=== PATIENT | male | born 1960 | race Caucasian/White ===

== ENCOUNTER 2019-04-05 18:21 | Inpatient (IN) | payer BC ==
[2019-04-05] MEDS ORDERED: Ketamine 50 MG/ML (10ML VIAL) ONE (18:41)
[2019-04-05] MEDS ORDERED: Rocuronium Bromide 10 MG/ML (10ML VIAL) ONE (18:41)
[2019-04-05 19:01] LABS: #Lymphocytes 1.1 thou/uL (1.20-3.40); #Monocytes 1.3 thou/uL (0.11-0.59); #Neutrophils 12.3 thou/uL (1.40-6.50); %Basophils 0.1 % (0.0-1.0); %Eosinophils 0.2 % (0.0-10.0); %Lymphocytes 7.3 % (21.0-51.0); %Monocytes 8.5 % (0.0-10.0); Hemoglobin 18.3 g/dL (14.0-18.0); Mean Corpuscular HGB CONC 28.9 g/dL (32.0-36.0); Mean Corpuscular Hemoglobin 27.6 pg (27.0-31.0); Mean Corpuscular Volume 95.4 fL (78.0-98.0); Mean Platelet Volume 7.9 fL (7.4-10.4); Platelet Count 204 thou/uL (130-400); RBC Distribution Width 15.9 % (11.5-14.5); Red Blood Cell (RBC) Count 6.65 mill/uL (4.70-6.10); White Blood Cell (WBC) Count 14.7 thou/uL (4.8-10.8)
[2019-04-05] MEDS ORDERED: fentaNYL Citrate/PF 2,000 MCG in Sodium Chloride 0.9% 60 ML IV SCH ×2 (19:10→22:08)
[2019-04-05 19:19] LABS: ALT (SGPT) 93 U/L (8-55); AST (SGOT) 94 U/L (5-34); Albumin 3.7 g/dL (3.5-5.0); Alkaline Phosphatase 92 U/L (40-150); Anion Gap 16 mmol/L (10-20); BUN (Urea Nitrogen) 56 mg/dL (8.4-25.7); Bilirubin, Total 0.7 mg/dL (0.2-1.2); CK (CPK) 327 U/L (30-200); Calc. Creatinine Clearance 0 mL/min (70-130); Calcium 9.5 mg/dL (7.8-10.44); Carbon Dioxide 27 mmol/L (22-29); Chloride 104 mmol/L (98-107); Estimated GFR-MDRD 27; Globulin 3.7 g/dL (2.4-3.5); Glucose 90 mg/dL (70-105); Potassium 5.9 mmol/L (3.5-5.1); Protein, Total 7.4 g/dL (6.0-8.3); Sodium 141 mmol/L (136-145)
[2019-04-05 19:21] LABS: Actual Bicarbonate (HCO3a) 26.2 mEq/L (22-28); Base Excess (BEa) -3.2 mEq/L (-2.0 to +3.0); CO2 Tension 63.3 mmHg (35.0-45.0); O2 Tension (PaO2) 104.3 mmHg (80.0-100.0); pH, Arterial 7.23 (7.35-7.45)
[2019-04-05 19:22] LABS: Analyzer IN Cardio ER; Calcium, Ionized 1.19 mmol/L (1.12-1.30); Carboxyhemoglobin (COHb) 4.4 gm% (0.0-3.0); Hemoglobin (Hb) 18.2 g/dL (14.0-18.0); Potassium - ABG Lab 5.31 mmol/L (3.70-5.30)
[2019-04-05 19:23] LABS: ALV-art Gradient 244.375 (0-20); Puncture Site RBA
--- NOTE | 2019-04-05 19:24 | RAD ---
Exam: Chest one view HISTORY:Difficulty breathing. Low O2 saturation. Comparison: 11/23 FINDINGS: Limited evaluation due to poor penetration from portable technique. Endotracheal tube appears to be b eyond the level of the clavicles. Distal tip cannot be adequately assessed. There is cardiomegaly and pulmonary vascular prominence. There are bilateral pleural effusions with l remberto parenchymal opacification due to atelectasis, pneumonia or aspiration. No definite pneumothorax on this supine projection IMPRESSION: 1. Congestive heart failure. 2. Possibility of aspiration or pneumonia in the lung bases cannot be excluded. 3. Endotracheal tube, incompletely evaluated. Consider repeat radiograph.
[2019-04-05 19:28] LABS: Acetaminophen Less than 6.0 mcg/mL (10.0-30.0); Alcohol Less than 10 mg/dL (Less than 10); Lipase 80 U/L (8-78); Salicylate Less than 8.0 mg/dL (15.0-30.0)
[2019-04-05] MEDS ORDERED: Fentanyl 100 MCG/2 ML VIAL ONE (19:29)
[2019-04-05 19:41] LABS: CKMB 5.8 ng/mL (0-6.6)
[2019-04-05 19:54] LABS: Bilirubin Negative (Negative); Blood, Urine 2+ (Negative); Clarity Turbid (Clear); Glucose, Urine (Dipstick) Normal (Negative); Leukocyte Negative Leu/uL (Negative); Nitrite Negative (Negative); Protein, Urine (Dipstick) 200 mg/dL (Neg-Trace); RBC/HPF 21-50 HPF (0-3); Squamous Epithelial 0-3 HPF (0-3); Urobilinogen Normal mg/dL (Less than 2)
[2019-04-05 19:56] LABS: Amphetamine Not Detected (NotDetected); Barbiturates Screen Not Detected (NotDetected); Benzodiazepine Screen Not Detected (NotDetected); Cocaine Metabolite Screen Not Detected (NotDetected); Medtox Control Line Valid? VALID (VALID); Medtox Reader # READER 4; Methadone Not Detected (NotDetected); Methamphetamine Not Detected (NotDetected); Opiate Screen Not Detected (NotDetected); Oxycodone Screen Not Detected (NotDetected); Phencyclidine (PCP) Not Detected (NotDetected); THC/Cannabinoid Screen Not Detected (NotDetected); Tricyclic Screen Not Detected (NotDetected)
[2019-04-05 20:04] LABS: Bacteria/HPF 1+ HPF (None Seen); Sperm/HPF 3+ HPF (None Seen)
[2019-04-05] MEDS ORDERED: Cefepime 2 GM VIAL ONE (20:24)
[2019-04-05] MEDS ORDERED: Norepinephrine 4 MG/4 ML VIAL ONE ×2 (20:32→20:33)
[2019-04-05] MEDS ORDERED: Norepinephrine 8 MG in Dextrose 5% in Water 242 ML IVPB PRN ×2 (20:34→22:27)
[2019-04-05] MEDS ORDERED: Propofol 1,000 MG/100 ML VIAL IV ONE (20:40)
[2019-04-05 20:58] LABS: INR-International Normal Ratio 1.2; PTT 23.2 SEC (22.9-36.1)
--- NOTE | 2019-04-05 21:49 | CT ---
Exam: Head CT without contrast HISTORY: Altered mental status COMPARISON: none FINDINGS: Hemorrhage: No intraparenchymal hemorrhage or extra-axial hematoma. Brain parenchyma: Cortical grey-white matter differentiation is preserved. No mass effect or midline shift. Basilar cisterns are patent. Ventricular system: Ventricles and sulci are patent and symmetric. Calvarium: Intact. Sinuses and mastoid air cells: Minimal ethmoidal mucosal thickening. IMPRESSION: No acute intracranial process.
--- NOTE | 2019-04-05 21:56 | CT ---
Exam: Chest CT without contrast Abdomen CT without contrast Pelvic CT without contrast HISTORY: Altered mental status. Unresponsive patient. Abdominal bloating. FINDINGS: Chest CT: Limited evaluation of the mediastinum due to the lack of IV contrast. No mass, lymphadenopa thy or hematoma. Heart is enlarged. Trace amount of pericardial fluid. The thoracic aorta and abdominal aorta have a normal caliber. No periaortic fat stranding Trachea and central bronchi are patent. Small bilateral effusions with adjacent consolidation likely due to atelectasis, aspiration or pneumonia. Additional patchy groundglass and linear opacities may represent edema or infiltrate. No pneumothorax. Abdomen CT: Limited evaluation of the solid organs due to the lack of IV contrast. There is no solid organ abnormality. There is perihepatic and perisplenic fluid with attenuation coefficient of 22 and 44 Hounsfield units respectively. Complex fluid is favored. Gallbladder is unremarkable No gastrohepatic, retrocrural or periportal lymphadenopathy There is free fluid tracking along both paracolic gutters. No mass, lymphadenopathy or free air withi n the mesentery Symmetric attenuation of the kidneys. Bilaterally no obstructive uropathy There is extensive edema involving the anterior abdominal wall Limited evaluation element canal by the lack of oral contrast. Nasogastric tube is in stomach. Multip le normal caliber small bowel loops. Ileocecal junction is unremarkable. Appendix appears to be somewhat truncated but present. Stranding adjacent to the presumed appendix is nonspecific as the vis ualized appendix does not appear to be dilated. Scattered fecal material in nondistended, nondilated colon. Occasional diverticulum in the sigmoid colon. No diverticulitis CT PELVIS: Small amount of free fluid in the pelvis. No mass, nephropathy, or free air. Urinary bladd er is decompressed. No acute abnormality with regards to the osseous structures. IMPRESSION: 1. Bilateral pleural effusions with bibasilar consolidation due to atelectasis, pneumonia or aspirati on 2. Nonspecific complex perihepatic and perisplenic fluid. Fluid tracks along the paracolic gutters an d noted in the pelvis. Etiology is uncertain. No obvious solid organ injury on this noncontrast study 3. No evidence of bowel obstruction. Questionable appendix in the right lower quadrant with some stra nding of the adjacent mesentery. Visualized possible appendix does not appear to be dilated. 4. Nonspecific anterior abdominal wall edema.
[2019-04-05] MEDS ORDERED: Ventilator Sedation Protocol 1 EACH FS ONE (21:58)
[2019-04-05] MEDS ORDERED: Propofol BOLUS 1,000 MG/100 ML VIAL IV PRN (22:08)
[2019-04-05] MEDS ORDERED: DISCONTINUE PREVIOUS NARCOTIC PAIN MEDICATIONS AND BENZODIAZEPINES FS SCH (22:08)
[2019-04-05] MEDS ORDERED: Fentanyl BOLUS 250 ML IVPB PRN (22:08)
[2019-04-05] MEDS ORDERED: SYSTANE 3.5 GM TUBE EA EYE PRN (22:14)
[2019-04-05] MEDS ORDERED: Bisacodyl 10 MG SUPP PR PRN (22:14)
[2019-04-05] MEDS ORDERED: Norepinephrine 8 MG/0.9% NS 250 ML IVPB PRN (22:14)
[2019-04-05] MEDS ORDERED: Insulin Regular 300 UNITS/3 ML VIAL SC PRN (22:14)
[2019-04-05] MEDS ORDERED: Acetaminophen 325 MG Suppository PR PRN (22:14)
[2019-04-05] MEDS ORDERED: Sodium Chloride 0.9% 1,000 ML IV SCH (22:30)
[2019-04-05] MEDS ORDERED: Vancomycin HCl 1 GM in Premix Bag 1 BAG IVPB SCH (22:30)
[2019-04-05] MEDS ORDERED: Aspirin 325 MG TAB PO SCH (22:30)
[2019-04-05] MEDS ORDERED: Piperacillin/Tazobactam 3.375 GM in Sodium Chloride 0.9% 100 ML IVPB SCH (22:45)
[2019-04-05] MEDS ORDERED: DOBUTamine 500 mg/250 ml 500 MG in Premix Bag 1 BAG IVPB SCH (22:45)
[2019-04-05] MEDS ORDERED: Furosemide 40 MG/4 ML VIAL SLOW IVP SCH (22:45)
[2019-04-05 23:55] LABS: Lactic Acid 1.7 mmol/L (0.5-2.2)
[2019-04-05 23:58] LABS: Anion Gap 15 mmol/L (10-20); BUN (Urea Nitrogen) 55 mg/dL (8.4-25.7); Calc. Creatinine Clearance 63 mL/min (70-130); Calcium 8.6 mg/dL (7.8-10.44); Carbon Dioxide 24 mmol/L (22-29); Chloride 107 mmol/L (98-107); Estimated GFR-MDRD 26; Glucose 84 mg/dL (70-105); Potassium 5.9 mmol/L (3.5-5.1); Sodium 140 mmol/L (136-145)
[2019-04-06 00:22] LABS: CKMB 5.5 ng/mL (0-6.6)
--- NOTE | 2019-04-06 01:39 | CON ---
DATE OF CONSULTATION: CONSULTING PHYSICIAN: Jose Kwon MD CRITICAL CARE NOTE: Time 1 hour. HISTORY OF PRESENT ILLNESS: Patient is an unfortunate 59-year-old gentleman who presents with respiratory failure. The patient has no previous cardiac history. The patient states that for the past few days, he has developed progressive dyspnea. He presented to the emergency room with respiratory failure and was emergently intubated. According to the patient's family, he reports for the past several days having progressive dyspnea. He was not apparently febrile. PAST MEDICAL HISTORY: 1. Hypertension. 2. Sleep apnea. PAST SURGICAL HISTORY: SOCIAL HISTORY: Tobacco abuse. MEDICATIONS: See nursing list. PHYSICAL EXAMINATION: GENERAL: Morbidly obese gentleman, who was intubated. VITAL SIGNS: Blood pressure 103/70, on Levophed. NECK: Showed no jugular venous distention. LUNGS: Have crackles in both lung priest. HEART: Regular rate and rhythm. Normal S1, S2. ABDOMEN: Markedly distended. EXTREMITIES: Show severe bilateral edema. LABORATORY RESULTS: Sodium 141, potassium 5.9, chloride 104, bicarbonate 27, BUN 56, creatinine 2.5, and his glucose is 90. His AST is 94. Troponin 0.015. BNP is 2036. His white blood cell count is 14.7, and platelet counts were 204. IMAGING: Chest x-ray reveals cardiomegaly with bilateral effusions. His EKG revealed normal sinus rhythm, poor R-wave progression. IMPRESSION: 1. Respiratory failure. 2. Congestive heart failure. 3. Renal insufficiency. 4. Elevated LFTs. 5. Polycythemia. 6. History of hypertension. 7. History of sleep apnea. 8. Morbid obesity. This gentleman presents with congestive heart failure. He was emergently intubated. His blood pressure has been low on Levophed. We will add dobutamine to try to increase his cardiac output. We will diurese with IV Lasix. The patient 's prognosis is guarded. Job ID: [id number] [facility]
--- NOTE | 2019-04-06 02:13 | HP ---
PRIMARY CARE PHYSICIAN: Dr. Justin. CHIEF COMPLAINT: Shortness of breath. HISTORY OF PRESENT ILLNESS: The patient is a 59-year-old morbidly obese male with COPD, hypertension, hyperlipidemia, obstructive sleep apnea, on CPAP, was brought in by EMS with above complaints. The patient is intubated and sedated on mechanical ventilation. There is no family at the bedside. History obtained from the ER record as well as Dr. Justin's office records. The EMS was called for altered mentation along with shortness of breath by patient's spouse. Over the last 4 days, the patient has been generally weak and fatigued. He also had recent upper respiratory tract infection. Over the last several days, he also has productive cough. The patient's reported that she found him slumped over leaning on the bed, unresponsive. When EMS arrived, his O2 saturation was around 80% on room air. He was last seen normal 2 or 3 hours ago. There was no recent fever reported. He was started on noninvasive positive-pressure ventilation and was brought to the emergency room. Due to worsening shortness of breath, he was intubated in the emergency room. PAST MEDICAL HISTORY: From Dr. Justin's office record; 1. COPD. 2. Hypertension. 3. Morbid obesity with a BMI of 50.1. 4. Tobacco dependence. 5. Obstructive sleep apnea, on CPAP. 6. Hyperlipidemia. 7. Metabolic syndrome. 8. Anxiety. 9. Bilateral venous insufficiency. 10. GERD. PAST SURGICAL HISTORY: EGD and colonoscopy in 2012. ALLERGIES: NO KNOWN DRUG ALLERGIES. CURRENT HOME MEDICATION: 1. Aspirin 81 mg daily. 2. Bisoprolol/HCTZ 5/6.25 mg daily. 3. Zoloft 100 mg daily. SOCIAL HISTORY: The patient currently lives at home with his . He smokes up to 2 packs a day on a daily basis. He drinks alcohol socially. No drug use reported. FAMILY HISTORY: Father of stroke. Mother diagnosed with cancer. REVIEW OF SYSTEMS: Cannot be obtained from the patient due to current cognitive status. PHYSICAL EXAMINATION: VITAL SIGNS: On ER arrival, respirations of 32, pulse rate of 97, blood pressure 142/90, O2 saturation 96% on BiPAP, temperature was 99.1. GENERAL: A 59-year-old male, intubated and sedated on mechanical ventilation. HEENT: Head is atraumatic, normocephalic. Sclerae anicteric. No oral lesion. NECK: Supple. JVD cannot be appreciated due to body habitus. No carotid bruit. LUNGS: Showed bibasilar rales with scattered rhonchi. No significant wheezing. The patient is on mechanical ventilation. HEART: S1 and S2 present. Regular rate and rhythm. No rubs or gallops. ABDOMEN: Soft and obese. Bowel sounds present. No guarding or rigidity. EXTREMITIES: 2+ edema in bilateral lower extremities. SKIN: Warm and dry. NEUROLOGY AND PSYCHIATRY: Could not be reliably done due to current cognitive status. LYMPH NODES: No palpable lymph nodes in the neck. PERIPHERAL VASCULAR: Radial pulses are palpable bilaterally, low volume. LABORATORY FINDINGS: WBC 14.7 with hemoglobin 18.3, hematocrit 63.4, platelets 204. PT of 1.2, PTT 15. ABG showed pH 7.23, pCO2 of 63.3, pO2 of 104, bicarbonate 26.2. Chemistry showed sodium 141, potassium 5.9, chloride 104, bicarb 27, BUN 56, creatinine 2.5. Troponin 0.154. CK-MB 5.8. BNP 2036. Lipase of 80. Ammonia 84. TSH 5.7. AST 94, ALT 93. CK of 327. Urinalysis showed 1+ bacteria, leukocyte esterase negative, nitrite negative. Urine drug screen was negative. IMAGING STUDIES: Chest x-ray by my review showed findings consistent with congestive heart failure with possible aspiration at bases. CT scan of the brain by my review was negative for acute findings. CT scan of the chest, abdomen, and pelvis without contrast showed bilateral pleural effusion with bibasilar consolidation due to atelectasis, pneumonia, or aspiration. There was nonspecific complex perihepatic and perisplenic fluid with fluid tracking along the paracolic gutters of unclear etiology. EKG by my review showed sinus rhythm with nonspecific ST-T wave changes. Medications administered in the emergency room; vancomycin, cefepime, Levophed drip, fentanyl, propofol, ketamine, rocuronium, with IV fluid. IMPRESSION: 1. Acute hypoxic and hypercapnic respiratory failure. 2. Toxic metabolic encephalopathy, multifactorial. 3. Sepsis with acute organ dysfunction secondary to pneumonia, suspected aspiration. 4. New onset congestive heart failure. 5. Morbid obesity with a BMI of 50.1. 6. Type 2 myocardial infarction. 7. Abnormal LFTs probably secondary to congestive heart failure. 8. Acute kidney injury on chronic kidney disease stage 3 with hyperkalemia. 9. Elevated ammonia. 10. Gastroesophageal reflux disease. 11. Nonspecific complex perihepatic and perisplenic fluid of unclear etiology. 12. Hyperlipidemia. 13. Metabolic syndrome. 14. Anxiety. 15. Ongoing tobacco abuse. 16. Chronic venous insufficiency. PLAN: The patient will be monitored in the intensive care unit. We will continue mechanical ventilation, ventilation sedation protocol. Empiric antibiotics for pneumonia. Continue Levophed drip. We will start aspirin. Repeat chest x-ray and an ABG in a.m. Recheck ammonia in a.m. Echocardiogram. Consult Cardiology and Critical Care. Hold IV fluids for now. Gentle diuretics. Nebulizer treatment. DVT and GI prophylaxis. Please note that the patient was seen and examined on 05 April 2019. Plan of care was discussed. Job ID: [id number]
[2019-04-06 04:15] LABS: Phosphorus 4.1 mg/dL (2.3-4.7)
[2019-04-06 04:17] LABS: ALT (SGPT) 107 U/L (8-55); AST (SGOT) 105 U/L (5-34); Albumin 2.9 g/dL (3.5-5.0); Alkaline Phosphatase 70 U/L (40-150); Anion Gap 11 mmol/L (10-20); BUN (Urea Nitrogen) 58 mg/dL (8.4-25.7); Bilirubin, Total 0.5 mg/dL (0.2-1.2); Calc. Creatinine Clearance 64 mL/min (70-130); Calcium 8.8 mg/dL (7.8-10.44); Carbon Dioxide 30 mmol/L (22-29); Chloride 106 mmol/L (98-107); Estimated GFR-MDRD 26; Globulin 3.1 g/dL (2.4-3.5); Glucose 85 mg/dL (70-105); Magnesium 1.9 mg/dL (1.6-2.6); Potassium 5.3 mmol/L (3.5-5.1); Sodium 142 mmol/L (136-145)
[2019-04-06] MEDS: Propofol 1,000 MG/100 ML VIAL IV PRN ×4 (04:40→21:51)
[2019-04-06 05:02] LABS: Anisocytosis SLIGHT = 6-15 cells (100X) (0-5/hpf); Band 6 % (5-11); Hemoglobin 16.6 g/dL (14.0-18.0); Hypochromia SLIGHT = 6-15 cells (100X) (0-5/hpf); Lymphocytes 15 % (21-51); MDiff Complete? YES; Mean Corpuscular HGB CONC 30.3 g/dL (32.0-36.0); Mean Corpuscular Hemoglobin 28.5 pg (27.0-31.0); Mean Platelet Volume 8.3 fL (7.4-10.4); Monocytes 6 % (0-10); Neutrophil 72 % (42-75); Platelet Count 162 thou/uL (130-400); Platelet Morphology Comment Appears Adequate; Polychromasia SLIGHT = 2-3 cells (100X) (0-2/hpf); RBC Distribution Width 15.9 % (11.5-14.5); Reactive Lymphocytes 1 % (0-10); Red Blood Cell (RBC) Count 5.83 mill/uL (4.70-6.10); Stomatocytes SLIGHT = 2-5 cells (100X) (0-1/hpf); White Blood Cell (WBC) Count 12.4 thou/uL (4.8-10.8)
[2019-04-06] MEDS: Piperacillin/Tazobactam 2.25 GM in Sodium Chloride 0.9% 100 ML IVPB SCH ×4 (05:12→23:43)
[2019-04-06] MEDS ORDERED: Piperacillin/Tazobactam 3.375 GM in Sodium Chloride 0.9% 100 ML IVPB SCH (06:00)
[2019-04-06] MEDS: Furosemide 100 MG in Sodium Chloride 0.9% 100 ML IVPB SCH ×2 (06:17→06:22)
[2019-04-06] MEDS: Famotidine/PF 20 mg/2ml Vial SLOW IVP SCH (07:42)
[2019-04-06] MEDS: Aspirin 325 MG TAB PO SCH (07:42)
[2019-04-06] MEDS: Famotidine 40 MG/5 ML Oral Suspension PER TUBE SCH (07:43)
[2019-04-06] MEDS: Lorazepam 2 MG/ML VIAL SLOW IVP PRN ×3 (07:43→15:33)
[2019-04-06] MEDS: Enoxaparin Sodium 30 MG/0.3 ML SYRINGE SC SCH (07:45)
[2019-04-06 08:18] LABS: Actual Bicarbonate (HCO3a) 28.1 mEq/L (22-28); Base Excess (BEa) 1.9 mEq/L (-2.0 to +3.0); CO2 Tension 49.5 mmHg (35.0-45.0); Carboxyhemoglobin (COHb) 1.9 gm% (0.0-3.0); Hemoglobin (Hb) 16.7 g/dL (14.0-18.0); O2 Tension (PaO2) 78.8 mmHg (80.0-100.0); pH, Arterial 7.37 (7.35-7.45)
[2019-04-06 08:19] LABS: Potassium - ABG Lab 4.87 mmol/L (3.70-5.30)
[2019-04-06 08:20] LABS: Calcium, Ionized 1.18 mmol/L (1.12-1.30); Puncture Site RR
[2019-04-06 08:21] LABS: ALV-art Gradient 501.025 (0-20)
--- NOTE | 2019-04-06 09:04 | RAD ---
XR Chest 1 View Portable History: Ventilated patient Comparison: Radiograph prior day Findings: Patient is intubated with endotracheal tube tip at the level of the clavicles. Heart size i s enlarged. Large left effusion. Dense left basilar opacity. No pneumothorax. Anterior tube tip just above the level of the clavicles. Enteric tube tip not well s een. Impression: Within the limits of this exam, no significant change.
[2019-04-06] MEDS ORDERED: Vecuronium 10 MG VIAL ONE (10:01)
[2019-04-06] MEDS ORDERED: Sterile Water 10 ML ONE (10:02)
--- NOTE | 2019-04-06 19:30 | PDOC.PN ---
- Subjective Encounter Start Date: 04/06/19 Encounter Start Time: 09:40 Pt seen for followup re: acute hypoxic respiratory failure. Intubated, unable to complete ROS. - Objective MAR Reviewed: Yes Vital Signs & Weight: Vital Signs (12 hours) Pulse Resp BP Pulse Ox 04/06/19 18:13 82 18 92 L 04/06/19 15:58 78 04/06/19 12:33 73 110/61 04/06/19 11:09 75 107/64 04/06/19 07:59 72 108/66 04/06/19 07:51 18 96 Weight Weight 328 lb 4.293 oz Most Recent Monitor Data Heart Rate from ECG 85 NIBP 114/58 NIBP BP-Mean 76 Respiration from ECG 21 SpO2 91 I&O: 04/05/19 04/06/19 04/07/19 06:59 06:59 06:59 Intake Total 888 681 Output Total 1065 885 Balance -177 -204 Result Diagrams: 04/06/19 03:30 04/06/19 03:30 Additional Labs: Accuchecks 04/06/19 04/06/19 04/06/19 17:17 11:45 06:13 POC Glucose 78 75 98 EKG Reviewed by me: Yes (Tele: NSR) Phys Exam - Physical Examination Morbid obesity HEENT: moist MMs ETT+ Neck: no nodes Respiratory: clear to auscultation bilateral Cardiovascular: RRR Gastrointestinal: soft no spontaneous limb movements Deviation from normal: Unable to assess Dx/Plan (1) Acute respiratory failure with hypoxia Code(s): J96.01 - ACUTE RESPIRATORY FAILURE WITH HYPOXIA Status: Acute Comment: secondary to pneumonia +/- CHF exacerbation (2) Pneumonia Code(s): J18.9 - PNEUMONIA, UNSPECIFIED ORGANISM Status: Acute Comment: continue IV Zosyn (3) Acute diastolic heart failure, NYHA class 3 Code(s): I50.31 - ACUTE DIASTOLIC (CONGESTIVE) HEART FAILURE Status: Acute Comment: continue IV furosemide 20 mg BID (4) Hyperkalemia Code(s): E87.5 - HYPERKALEMIA Status: Acute Comment: administer kayexalate (5) Morbid obesity Code(s): E66.01 - MORBID (SEVERE) OBESITY DUE TO EXCESS CALORIES Status: Chronic - Plan continue antibiotics * . Review of Systems - Medications/Allergies Allergies/Adverse Reactions: Allergies Allergy/AdvReac Type Severity Reaction Status Date / Time No Known Drug Allergies Allergy Unverified 04/05/19 19:10 Medications: Current Medications Acetaminophen (Tylenol) 650 mg WA Q6H PRN PRN Reason: Fever > 101 or Mild Pain Acetaminophen (Tylenol Elixir) 650 mg PO Q6H PRN PRN Reason: Fever > 101 or Mild Pain Albuterol/Ipratropium (Duoneb) 3 ml NEB [id number] [facility] Last Admin: 04/06/19 18:13 Dose: 3 ml Albuterol/Ipratropium (Duoneb) 3 ml NEB Q6H PRN PRN Reason: SOB &/or Wheezing Aspirin (Aspirin) 325 mg PO QAM-WM [facility] Last Admin: 04/06/19 07:42 Dose: 325 mg Bisacodyl (Dulcolax) 10 mg WA DAILYPRN PRN PRN Reason: Constipation Enoxaparin Sodium (Lovenox) 30 mg SC 0900 [facility] Last Admin: 04/06/19 07:45 Dose: 30 mg Famotidine (Pepcid) 20 mg SLOW IVP DAILY [facility] Last Admin: 04/06/19 07:42 Dose: 20 mg Famotidine (Pepcid) 20 mg PER TUBE DAILY [facility] Last Admin: 04/06/19 07:43 Dose: Not Given Furosemide (Lasix) 20 mg SLOW IVP 0600,1400 [facility] Fentanyl Citrate 2,000 mcg/ (Sodium Chloride) 100 mls @ 0 mls/hr IV INF [facility]; Protocol Stop: 05/05/19 22:08 Fentanyl Citrate (Fentanyl Bolus) 250 mls @ 0 mls/hr IVPB PRN PRN PRN Reason: Breakthrough pain/agitation Stop: 05/05/19 22:08 Norepinephrine Bitartrate 8 mg (/ Dextrose/Water) 250 mls @ 0 mls/hr IVPB INF PRN; Protocol PRN Reason: TO MAINTAIN MAP > 65 Piperacillin Sod/Tazobactam (Sod 2.25 gm/ Sodium Chloride) 100 mls @ 200 mls/ hr IVPB Q6HR [facility] Last Admin: 04/06/19 17:05 Dose: 100 mls Vancomycin HCl 1.5 gm/ Sodium (Chloride) 300 mls @ 200 mls/hr IVPB 2200 [facility]ISAL Insulin Human Regular (Humulin R) 0 units SC .MILD SLIDING SCALE PRN PRN Reason: Mild Correctional Scale Lorazepam (Ativan) 2 mg SLOW IVP Q1H PRN PRN Reason: Breakthrough agitation Stop: 05/05/19 22:08 Last Admin: 04/06/19 15:33 Dose: 2 mg Mineral Oil/White Petrolatum (Systane Nighttime Eye Ointment) 0 gm EA EYE PRN PRN PRN Reason: Dry Eyes Miscellaneous Medication (Pharmacy To Dose) 1 each IVPB ONE PRN PRN Reason: Pharmacy to dose Stop: 05/05/19 22:21 Morphine Sulfate (Morphine) 2 mg SLOW IVP Q1H PRN PRN Reason: BREAKTHROUGH PAIN/Agitation Stop: 05/05/19 22:08 Discontinue Previous Narcotic Pain Medications And Benzodiazepines 1 each FS .ONE FAISAL Stop: 05/05/19 22:08 Propofol (Diprivan) 1,000 mg IV INF PRN; Protocol PRN Reason: TO ACHIEVE GOAL RASS Stop: 05/05/19 22:08 Last Admin: 04/06/19 14:49 Dose: 1,000 mg Propofol (Diprivan Bolus) 20 mg IV Q5MIN PRN PRN Reason: BREAKTHROUGH AGITATION Stop: 05/05/19 22:08
[2019-04-06] MEDS: Vancomycin HCl 1.5 GM in Sodium Chloride 0.9% 250 ML 300 ML IVPB SCH (21:51)
[2019-04-07] MEDS: Propofol 1,000 MG/100 ML VIAL IV PRN ×5 (00:25→22:41)
[2019-04-07] MEDS: Lorazepam 2 MG/ML VIAL SLOW IVP PRN ×5 (01:55→17:30)
[2019-04-07 04:06] LABS: ALT (SGPT) 118 U/L (8-55); AST (SGOT) 82 U/L (5-34); Albumin 2.8 g/dL (3.5-5.0); Alkaline Phosphatase 67 U/L (40-150); Anion Gap 14 mmol/L (10-20); BUN (Urea Nitrogen) 56 mg/dL (8.4-25.7); Bilirubin, Total 0.6 mg/dL (0.2-1.2); Calc. Creatinine Clearance 70 mL/min (70-130); Calcium 8.9 mg/dL (7.8-10.44); Carbon Dioxide 29 mmol/L (22-29); Chloride 107 mmol/L (98-107); Estimated GFR-MDRD 28; Globulin 3.1 g/dL (2.4-3.5); Glucose 94 mg/dL (70-105); Potassium 4.7 mmol/L (3.5-5.1); Protein, Total 5.9 g/dL (6.0-8.3); Sodium 145 mmol/L (136-145)
[2019-04-07 04:33] LABS: Band 4 % (5-11); Eosinophils 2 % (0-10); Lymphocytes 13 % (21-51); MDiff Complete? YES; Mean Corpuscular HGB CONC 30.7 g/dL (32.0-36.0); Mean Corpuscular Hemoglobin 28.3 pg (27.0-31.0); Mean Corpuscular Volume 92.3 fL (78.0-98.0); Mean Platelet Volume 8.4 fL (7.4-10.4); Monocytes 8 % (0-10); Neutrophil 73 % (42-75); Platelet Count 160 thou/uL (130-400); RBC Distribution Width 15.9 % (11.5-14.5); Red Blood Cell (RBC) Count 5.67 mill/uL (4.70-6.10); White Blood Cell (WBC) Count 8.7 thou/uL (4.8-10.8)
[2019-04-07] MEDS: Piperacillin/Tazobactam 2.25 GM in Sodium Chloride 0.9% 100 ML IVPB SCH ×3 (05:39→16:57)
[2019-04-07] MEDS: Furosemide 20 MG/2 ML VIAL SLOW IVP SCH ×2 (05:39→14:28)
[2019-04-07] MEDS: Aspirin 325 MG TAB PO SCH (08:13)
[2019-04-07 08:14] LABS: Actual Bicarbonate (HCO3a) 27.2 mEq/L (22-28); Base Excess (BEa) 0.3 mEq/L (-2.0 to +3.0); CO2 Tension 51.6 mmHg (35.0-45.0); Calcium, Ionized 1.15 mmol/L (1.12-1.30); Carboxyhemoglobin (COHb) 1.6 gm% (0.0-3.0); Hemoglobin (Hb) 16.5 g/dL (14.0-18.0); O2 Tension (PaO2) 65.9 mmHg (80.0-100.0); Potassium - ABG Lab 4.57 mmol/L (3.70-5.30); pH, Arterial 7.34 (7.35-7.45)
[2019-04-07] MEDS: Famotidine 40 MG/5 ML Oral Suspension PER TUBE SCH (08:14)
[2019-04-07] MEDS: Enoxaparin Sodium 30 MG/0.3 ML SYRINGE SC SCH (08:14)
[2019-04-07] MEDS: Famotidine/PF 20 mg/2ml Vial SLOW IVP SCH (08:14)
[2019-04-07 08:17] LABS: Puncture Site LRA
--- NOTE | 2019-04-07 08:20 | RAD ---
Exam: Chest one view: HISTORY: Respiratory insufficiency FINDINGS: Monitor leads overlie the chest. There is now complete abnormal opacification of the left hemithorax when compared to yesterday's study. Endotracheal tube and NG tube are in place. This finding suggests rapidly developing left pleural fluid and/or total left lung atelectasis. No significant acu te process in the right chest although there is some stable vascular congestion and minimal pleural changes. Heart size is very difficult to assess but appears enlarged. IMPRESSION: Developing abnormal complete opacification of the left hemithorax evidence for rapidly enlarging left pleural effusion/pleural fluid and/or complete left lung atelectasis. Consider bronchoscopy for further assessment in this regard. Stable right chest.
--- NOTE | 2019-04-07 10:07 | PRG ---
DATE OF SERVICE: 04/07/2019 SUBJECTIVE: Obdulio remains mechanically ventilated. He had left lung atelectasis on today's chest x-ray. Recommended bronchoscopy. OBJECTIVE: VITAL SIGNS: His blood pressure is 106/62, heart rate 78, respiratory rate 17, and oximetry is 90. HEAD AND NECK: Unchanged. LUNGS: Remarkable for distant breath sounds on the left. HEART: Regular rhythm. ABDOMEN: Soft. EXTREMITIES: Without clubbing, cyanosis, or edema. LABORATORY DATA: White count 8.7, hemoglobin 16.0, and platelets 160. Sodium 145, potassium 4.7, chloride 107, bicarb 29, BUN 56, and creatinine 2.38 down from 2.53. IMPRESSION: 1. Chronic obstructive pulmonary disease exacerbation with bronchitis, perhaps early pneumonia. 2. Left lung atelectasis secondary to mucus plug. I doubt he has an endobronchial lesion, but I have recommended bronchoscopy. 3. Acute on chronic kidney disease. 4. Elevated liver enzymes. 5. Hypoalbuminemia with moderate proteinuria (200 mg/dL). 6. Microhematuria on urinalysis. It is unclear whether not this was drawn after a [place] was placed. 7. Hyperdynamic ventricle, but echo was of poor quality. There is tricuspid regurgitation seen. PLAN: We will continue with antimicrobial therapy, ventilation, steroids, and nebulizer treatments. Serial x-rays. Bronchoscopy will be performed. Critical care time is 35 minutes, independent of procedures performed. Job ID: [id number] [facility]
--- NOTE | 2019-04-07 13:51 | CON ---
DATE OF CONSULTATION: HISTORY OF PRESENT ILLNESS: Mr. Mak is a 59-year-old male. His tells me he has been short of breath for several days and then just prior to admission was mumbling and on his knees leaning over something and barely able to breathe. EMS was subsequently called. At some point along the way, he was intubated. He is now in the critical care unit. I was consulted to assist in his management. He has no past history of heart or lung disease according to her, but I did find pulmonary function test done in December of 2012 that showed a moderate obstructive defect with an FEV1 of 1.70 L. Surprisingly, he had 250 mL bronchodilator suggesting as a mixture of COPD and asthma. His lung volumes are normal. He did have air trapping. Diffusion was not done. His says she has been buying Primatene Mist inhaler since they came back on the market and he is using those several times a day with improvement of his pulmonary function in a sense of well being. Reviewed his chest x-ray on admission, is suggestive of an increase in interstitial markings. Chest CT as well as an abdomen and pelvis CT was done in the emergency department. He had small bilateral effusions. He really did not have any increased interstitial markings on his chest CT. His abdomen views were remarkable only for perihepatic and perisplenic fluid. His says that he has been retaining fluid. His abdomen has been swelling and his legs have been swelling and this has been going on for at least a week or longer. PAST MEDICAL HISTORY: 1. Remarkable for hypertension. His says his blood pressure has been running on the low side lightly, but he does take his medications. 2. History of sleep apnea, compliant with CPAP. She says he will not go to sleep without it. 3. History of ongoing tobacco use. 4. History of obesity. 5. History of lipid disorder. 6. History of reflux disease. 7. History of EGD and colonoscopy in 2013. ALLERGIES: HE HAS NO DRUG ALLERGIES. FAMILY HISTORY: Negative for lung disease in early age. REVIEW OF SYSTEMS: Not obtainable. PHYSICAL EXAMINATION: VITAL SIGNS: Blood pressure 109/58, heart rate 75, respiratory rate is 20. GENERAL: Sedated and paralyzed for ventilation. HEENT: Pupils are equal. Sclerae are anicteric. Extraocular movements are intact. NECK: Supple. No lymphadenopathy. LUNGS: Distant clear. HEART: Regular rhythm. S1 and S2 are normal. ABDOMEN: Soft and nontender. He has 1+ to 2+ lower extremity edema. He moves all extremities when he is not sedated I am told. He has gag reflex and coughs if stimulated. LABORATORY DATA: White count is 12.4, hemoglobin 16.6, platelets 162,000. Hemoglobin was 18.3 yesterday, suggesting that he has significant intravascular volume depletion. In 2014, he had a hemoglobin of 17.1. It is unclear when his treatment for sleep apnea started. Sodium 142, potassium 5.3, chloride 106, bicarb 30, BUN 58, and creatinine 2.53 to 2.57 last night and 3.50 early in emergency room, in November of 2017, it was 1.43. IMPRESSION: 1. Chronic obstructive pulmonary disease exacerbation. 2. ? Component of diastolic heart failure. 3. Anasarca secondary likely to combination of sleep apnea, diastolic heart failure, and chronic obstructive pulmonary disease with cor pulmonale. 4. Acute on chronic kidney disease. 5. Probable intravascular volume depletion that is significant, I suspect this will improve. 6. Mild elevation of liver enzymes and normal bilirubin and normal alkaline phosphatase, likely secondary to either fatty infiltration of his liver with hepatic congestion with latter being more likely. 7. Hypoalbuminemia. 8. Obesity. 9. History of hypertension. 10. Lipid disorder. I was met with family and answered all their questions. I suspect he will be mechanically ventilated for several days. I do believe he will survive this, but steroids, nebulizer treatments, gentle diuresis once his renal function is documented to be stable will be the order of the day. At this point in time, I would not aggressively try diuresing him because of his elevated creatinine. CRITICAL CARE TIME: 30 minutes. Job ID: [id number]
--- NOTE | 2019-04-07 14:41 | OP ---
DATE OF PROCEDURE: 04/07/2019 PROCEDURE PERFORMED: Fiberoptic bronchoscopy. DESCRIPTION OF PROCEDURE: Bronchoscope was introduced via the endotracheal tube without difficulty. The left mainstem bronchus was completely occluded with a very thick rubbery mucus plug. This was lavaged with approximately 40 mL of saline until it was clear. No endobronchial lesions were seen behind it. The left upper lobe, left lower lobe, right upper lobe, right middle lobe, right lower lobe were inspected. Diffuse bronchial edema was noted, but no lesions suggestive of malignancy or aspirated material. He tolerated the procedure well. He is not hypoxemic during the procedure. He was already sedated for mechanical ventilation. Job ID: [id number]
[2019-04-07] MEDS: guaiFENesin ER 600 MG TAB PO SCH (19:51)
[2019-04-07 21:26] LABS: Vancomycin, Trough 13.9 ug/mL
[2019-04-07] MEDS: Vancomycin HCl 1.5 GM in Sodium Chloride 0.9% 250 ML 300 ML IVPB SCH (21:42)
--- NOTE | 2019-04-07 21:44 | PDOC.PN ---
- Subjective Encounter Start Date: 04/07/19 Encounter Start Time: 17:25 Subjective: f/u for resp failure likely due to COPD, L-sided PNA/atelectasis s/p -: bronchoscopy with removal of L main bronchus mucus plug. Remains -: mech ventilated on Zosyn/Vanc. - Objective MAR Reviewed: Yes Vital Signs & Weight: Vital Signs (12 hours) Temp Pulse Resp BP Pulse Ox 04/07/19 20:00 18 04/07/19 19:00 98.3 F 04/07/19 18:22 81 108/64 04/07/19 14:58 82 103/58 L 04/07/19 13:32 15 04/07/19 13:25 76 118/67 04/07/19 13:22 77 14 91 L 04/07/19 10:49 85 126/60 04/07/19 10:00 98.4 F Weight Admit Weight 319 lb 10.7 oz Weight 330 lb 11.04 oz Most Recent Monitor Data Heart Rate from ECG 84 NIBP 113/60 NIBP BP-Mean 77 Respiration from ECG 16 SpO2 89 I&O: 04/06/19 04/07/19 04/08/19 06:59 06:59 06:59 Intake Total 888 1500 710 Output Total 1069 1700 3240 Balance -960 -222 -0069 Result Diagrams: 04/07/19 03:30 04/07/19 03:30 Additional Labs: Accuchecks 04/07/19 04/07/19 06:11 00:09 POC Glucose 93 99 Laboratory Tests 04/05/19 04/05/19 04/05/19 18:40 18:40 18:40 WBC 14.7 H Hgb 18.3 H Creatinine 2.50 H AST 94 H Ammonia B-Natriuretic Peptide 2036.6 H TSH 3rd Generation Cortisol Vancomycin Trough Plasma Alcohol 04/05/19 04/05/19 04/05/19 18:40 18:40 19:15 WBC Hgb Creatinine AST Ammonia 84 H B-Natriuretic Peptide TSH 3rd Generation 5.7125 H Cortisol Vancomycin Trough Plasma Alcohol Less than 10 04/05/19 04/06/19 04/06/19 23:23 03:30 03:30 WBC 12.4 H Hgb 16.6 Creatinine 2.57 H 2.53 H AST 105 H Ammonia B-Natriuretic Peptide TSH 3rd Generation Cortisol Vancomycin Trough Plasma Alcohol 07/07/19 07/07/19 07/08/19 03:30 03:30 03:30 WBC Hgb Creatinine AST 82 H Ammonia 34 B-Natriuretic Peptide TSH 3rd Generation Cortisol 16.70 Vancomycin Trough Plasma Alcohol 04/07/19 21:02 WBC Hgb Creatinine AST Ammonia B-Natriuretic Peptide TSH 3rd Generation Cortisol Vancomycin Trough 13.9 Plasma Alcohol Radiology Reviewed by me: Yes (PCXR - L hemithorax opacification) EKG Reviewed by me: Yes (Tele - SR) Phys Exam - Physical Examination sedate on mech ventilation ETT in place HEENT: sclera anicteric, oral pharynx no lesions Neck: no nodes, no JVD, supple, full ROM diminished in bases L> R Respiratory: no wheezing S1, S2 Cardiovascular: RRR, no significant murmur, no rub, gallop obese Gastrointestinal: no distention, positive bowel sounds Musculoskeletal: pulses present, edema present sedate on mech vent Skin: normal turgor, cap refill <2 seconds Dx/Plan (1) Acute respiratory failure with hypoxia and hypercapnia Code(s): J96.01 - ACUTE RESPIRATORY FAILURE WITH HYPOXIA; J96.02 - ACUTE RESPIRATORY FAILURE WITH HYPERCAPNIA Status: Acute Comment: Likely due to #2 , continue mech vent with SIMV, serial PCXR, ABG's, s/p L main bronchus evacuation of mucus plug (2) Atelectasis of left lung Code(s): J98.11 - ATELECTASIS Status: Acute Comment: See above, improving aeration (3) Acute diastolic heart failure, NYHA class 3 Code(s): I50.31 - ACUTE DIASTOLIC (CONGESTIVE) HEART FAILURE Status: Acute Comment: continue IV furosemide 20 mg BID, serial weights and I/O's (4) Pneumonia Code(s): J18.9 - PNEUMONIA, UNSPECIFIED ORGANISM Status: Acute Qualifiers: Laterality: left Comment: continue IV Zosyn, Vancomycin, Duonebs (5) Morbid obesity Code(s): E66.01 - MORBID (SEVERE) OBESITY DUE TO EXCESS CALORIES Status: Chronic Comment: Weight loss resources (6) TASHIA (acute kidney injury) Code(s): N17.9 - ACUTE KIDNEY FAILURE, UNSPECIFIED Status: Acute Comment: Appears to be worsening, monitor closely given need for Lasix, avoid nephrotoxic meds and limit contrast exposure - Plan continue antibiotics, secondary social studies teacher, respiratory therapy, DVT proph w/SCDs Continue critical support and mech ventilation -: Continue Vanc/Zosyn -: PCXR in am -: Continue Lasix IV -: AM lab: CMP, CBC, ABG * .
[2019-04-08] MEDS: Piperacillin/Tazobactam 2.25 GM in Sodium Chloride 0.9% 100 ML IVPB SCH ×2 (00:44→05:41)
[2019-04-08] MEDS: Propofol 1,000 MG/100 ML VIAL IV PRN ×4 (03:16→15:36)
[2019-04-08 04:55] LABS: ALT (SGPT) 129 U/L (8-55); AST (SGOT) 101 U/L (5-34); Albumin 2.8 g/dL (3.5-5.0); Alkaline Phosphatase 66 U/L (40-150); Anion Gap 13 mmol/L (10-20); BUN (Urea Nitrogen) 43 mg/dL (8.4-25.7); Bilirubin, Total 0.7 mg/dL (0.2-1.2); Calc. Creatinine Clearance 93 mL/min (70-130); Calcium 8.4 mg/dL (7.8-10.44); Carbon Dioxide 32 mmol/L (22-29); Cardiac Risk 6.4 (Less than 4.5); Chloride 104 mmol/L (98-107); Cholesterol 109 mg/dl (< 200 Desired); Estimated GFR-MDRD 39; Globulin 3.2 g/dL (2.4-3.5); Glucose 99 mg/dL (70-105); HDL Cholesterol 17 mg/dL (>60 Neg Risk); LDL Cholesterol, Calculated 50 mg/dL; Potassium 4.2 mmol/L (3.5-5.1); Sodium 145 mmol/L (136-145); Triglycerides 212 mg/dL (Less than 150)
[2019-04-08 05:22] LABS: Band 12 % (5-11); Hemoglobin 16.1 g/dL (14.0-18.0); Lymphocytes 10 % (21-51); MDiff Complete? YES; Mean Corpuscular HGB CONC 29.6 g/dL (32.0-36.0); Mean Corpuscular Hemoglobin 27.2 pg (27.0-31.0); Mean Platelet Volume 8.4 fL (7.4-10.4); Monocytes 7 % (0-10); Neutrophil 71 % (42-75); Platelet Count 142 thou/uL (130-400); RBC Distribution Width 15.8 % (11.5-14.5); RBC Morphology Normal; White Blood Cell (WBC) Count 7.3 thou/uL (4.8-10.8)
[2019-04-08] MEDS: Furosemide 20 MG/2 ML VIAL SLOW IVP SCH (05:41)
[2019-04-08 07:23] LABS: Actual Bicarbonate (HCO3a) 32.7 mEq/L (22-28); Base Excess (BEa) 5.7 mEq/L (-2.0 to +3.0); CO2 Tension 56.1 mmHg (35.0-45.0); Hemoglobin (Hb) 16.7 g/dL (14.0-18.0); O2 Tension (PaO2) 51.8 mmHg (80.0-100.0); pH, Arterial 7.38 (7.35-7.45)
[2019-04-08 07:24] LABS: ALV-art Gradient 505.515 (0-20); Calcium, Ionized 1.16 mmol/L (1.12-1.30); Carboxyhemoglobin (COHb) 1.8 gm% (0.0-3.0); Puncture Site LRA
[2019-04-08] MEDS: Lorazepam 2 MG/ML VIAL SLOW IVP PRN ×4 (07:27→15:36)
[2019-04-08] MEDS: Aspirin 325 MG TAB PO SCH (07:30)
[2019-04-08] MEDS: guaiFENesin ER 600 MG TAB PO SCH ×2 (07:30→20:32)
[2019-04-08] MEDS: Famotidine/PF 20 mg/2ml Vial SLOW IVP SCH (07:31)
[2019-04-08] MEDS: Enoxaparin Sodium 30 MG/0.3 ML SYRINGE SC SCH (07:31)
[2019-04-08] MEDS: Famotidine 40 MG/5 ML Oral Suspension PER TUBE SCH (07:32)
--- NOTE | 2019-04-08 08:13 | RAD ---
Chest AP view INDICATION: Daily CT examination while on ventilator COMPARISON: April 07, 2019 FINDINGS: Tubes and Lines: ET tube and gastric catheter are unchanged. Lungs:There is improved aeration of the left along. Cardiac silhouette pulmonary vasculature:Cardiomegaly and mild pulmonary vascular congestion persists . Pleural spaces: 6 opacification of left hemithorax has improved. Small bilateral pleural effusions pe rsist. No pneumothorax is demonstrated. Upper abdomen:No abnormality seen. Osseous structures: No acute abnormality. IMPRESSION: Improved aeration of the left lung with small residual bilateral pleural effusions. Cardi omegaly and mild pulmonary vascular congestion persists. No pneumothorax is identified. Tubes and lines are stable.
[2019-04-08] MEDS ORDERED: Furosemide 20 MG/2 ML VIAL SLOW IVP SCH (08:47)
[2019-04-08] MEDS ORDERED: Furosemide 40 MG/4 ML VIAL ONE ×2 (08:48→09:58)
[2019-04-08] MEDS ORDERED: Furosemide 40 MG/4 ML VIAL SLOW IVP SCH (09:15)
[2019-04-08] MEDS ORDERED: Furosemide 100 MG/10 ML VIAL SLOW IVP SCH (10:00)
[2019-04-08] MEDS: Piperacillin/Tazobactam 3.375 GM in Sodium Chloride 0.9% 100 ML IVPB SCH ×3 (10:51→23:36)
--- NOTE | 2019-04-08 11:52 | PRG ---
DATE OF SERVICE: 04/08/2019 SUBJECTIVE: Ramin Mak still requires sedation for mechanical ventilation. OBJECTIVE: VITAL SIGNS: Heart rate is 87, blood pressure 122/71, respiratory rates in the teens. His FiO2 requirements went up yesterday. His intake and outputs, -2319. LUNGS: Distant, clear. Mild rhonchi and wheezes. HEART: Regular rhythm. S1, S2 normal. ABDOMEN: Soft and nontender. EXTREMITIES: Without edema. NEURO: He moves all 4 extremities. LABORATORY DATA: White count 7.3, hemoglobin 16.1, platelets 142. Electrolytes are normal. BUN is 43, creatinine is 1.81. PH 7.38, CO2 56, PO2 51. We will try diuresing him more and try minimizing his FiO2. I would like to get a CT angiogram just to make sure we are not missing thromboembolic disease, but he is too unstable at this time to move down for CT pulmonary angiogram. With fiberoptic bronchoscopy yesterday, specimens have not grown anything positive. IMPRESSION: 1. Acute on chronic respiratory failure. 2. Severe chronic obstructive pulmonary disease. 3. Diastolic heart failure. 4. Ongoing hypoxemia, most likely secondary to peripheral mucus plugging, bronchitis and perhaps early pneumonia. I will Doppler his legs today. We will add Precedex for sedation to see, if we can find a combination of drugs, it makes him more cooperative when sedation is decreased. We will more aggressively diurese him today and hopefully this will help with gas exchange and try to get him down to a FiO2 of less than 60%. Critical care time is 35 minutes. Job ID: [id number] MTDD
--- NOTE | 2019-04-08 13:10 | PQF ---
TORREY MELTON RICHA MD [id number] CLINICAL DOCUMENTATION IMPROVEMENT CLARIFICATION FORM: ICD-10 Updated PLEASE DO AN ADDENDUM TO THE PROGRESS NOTE WITH ANY DOCUMENTATION UPDATES OR ADDITIONS AND CARRY THROUGH TO DC SUMMARY. THANK YOU. DATE: 04/08 ATTN : DR. PETE HARDING Please exercise your independent, professional judgment in responding to the clarification form. Clinical indicators are provided on the bottom of this form for your review. Please check appropriate box(s) to clarify if the following diagnosis has been ruled in or ruled out: SEPSIS W/ACUTE ORGAN DYSFUNCTION [ ] Ruled in diagnosis [ ] Continue to treat [ ] Resolved [ ] Ruled out diagnosis [ ] Other diagnosis [ X ] Unable to determine In addition, please specify: Present on Admission (POA): [ ] Yes [ ] No [ X ] Unable to determine For continuity of documentation, please document condition throughout progress notes and discharge summary. Thank You. CLINICAL INDICATORS - SIGNS / SYMPTOMS / LABS WBC: 14.7 (04/05) BP (IN ED 04/05): 81/62-143/87 H&P 04/05 (LADHA): IMPRESSION: 1) ACUTE HYPOXIC/HYPERCAPNIC RESPIRATORY FAILURE ; 2) TOXIC METABOLIC ENCEPHALOPATHY, MULTIFACTORIAL; 3) SEPSIS, W/ACUTE ORGAN DYSFUNCTION 2/2 PNEUMONIA, SUSPECTED ASPIRATION; 8) TASHIA ON CKD 3 PULMONOLOGY CONSULT 04/05: IMPRESSION: 1) COPD EXACERBATION; 5) PROBABLE INTRAVASCULAR VOLUME DEPLETION THAT IS SIGNIFICANT PN 04/06 (RENETTA) & 04/07 (JOSÉ MIGUEL): ACUTE PNEUMONIA, LEFT NO FURTHER MENTION OF SEPSIS TO DATE RISKS: L SIDED PNEUMONIA TOXIC METABOLIC ENCEPHALOPATHY TASHIA TREATMENT: IVF (2L NS IN ED) IV ANTIBIOTICS (VANCOMYCIN 04/05 - 7; ZOSYN 04/05 - PRESENT) LEVOPHED (04/05-) THANK YOU! Beulah (This form is maintained as a part of the permanent medical record) 2014 [employer]. All Rights Reserved Beulah Ramirez RN, BSN [email or web address] Office: [phone] [facility]OSPITAL[facility]
[2019-04-08] MEDS: Furosemide 40 MG/4 ML VIAL SLOW IVP SCH (14:37)
--- NOTE | 2019-04-08 15:42 | ULT ---
BILATERAL LOWER EXTREMITY VENOUS ULTRASOUND: 04/08/19 COMPARISON: None. HISTORY: Bilateral lower extremity edema and swelling. TECHNIQUE: Multiplanar grey scale and color Doppler images were obtained in a bilateral lower extremity venous u ltrasound. Spectral analysis of the Doppler waveforms were performed. FINDINGS: A central line is seen in the right common femoral vein. There is a small amount of nonocclusive thr ombus in the common femoral vein around the central line. The right superficial femoral vein, profund a femoral vein, and popliteal vein are normal in appearance without visible thrombus. These vessels d emonstrate normal compression, flow and augmentation. The posterior tibial vein and greater saphenous vein are also patent on the right. The left lower extremity shows no evidence of DVT in the common femoral vein, profunda femoral vein, superficial femoral vein, or popliteal vein. The posterior tibial vein and greater saphenous vein are also patent on the left. IMPRESSION: Small amount of nonocclusive thrombus surrounding the central line in the right common femoral vein. POS: C
--- NOTE | 2019-04-08 16:15 | PDOC.PN ---
- Subjective Encounter Start Date: 04/08/19 Encounter Start Time: 16:12 Subjective: remains intubated.no new changes -: s/p bronch yesterday - Objective MAR Reviewed: Yes Vital Signs & Weight: Vital Signs (12 hours) Temp Pulse Resp BP Pulse Ox 04/08/19 13:48 77 103/67 04/08/19 13:47 78 17 96 04/08/19 10:40 87 122/71 04/08/19 07:08 16 90 L 04/08/19 07:00 99.0 F 04/08/19 06:49 84 119/75 04/08/19 06:48 83 17 92 L 04/08/19 06:00 18 Weight Admit Weight 319 lb 10.7 oz Weight 315 lb 0.649 oz Most Recent Monitor Data Heart Rate from ECG 78 NIBP 93/63 NIBP BP-Mean 73 Respiration from ECG 11 SpO2 94 I&O: 04/07/19 04/08/19 04/09/19 06:59 06:59 06:59 Intake Total 1500 2141 0 Output Total 1700 9148 4766 Balance -200 -3234 -7135 Result Diagrams: 04/08/19 04:20 04/08/19 04:20 Additional Labs: Microbiology 04/05/19 19:29 Urine andrew catheter Urine Culture - Final NO GROWTH AT 36 HOURS 04/07/19 07:50 Bronchial Washing Respiratory Culture - Preliminary 04/05/19 19:22 Venous blood - Left Hand Blood Culture - Preliminary NO GROWTH AT 48 HOURS 04/05/19 19:15 Venous blood - Right Hand Blood Culture - Preliminary NO GROWTH AT 48 HOURS Laboratory Tests 04/05/19 04/05/19 04/06/19 18:40 23:23 03:30 Creatinine 2.50 H 2.57 H 2.53 H 04/07/19 04/08/19 03:30 04:20 Creatinine 2.38 H 1.81 H Phys Exam - Physical Examination intubated HEENT: moist MMs ETT Neck: no JVD Respiratory: no wheezing, no rales Cardiovascular: RRR, no significant murmur Gastrointestinal: soft Musculoskeletal: no edema, pulses present sedated Dx/Plan (1) Acute respiratory failure with hypoxia and hypercapnia Code(s): J96.01 - ACUTE RESPIRATORY FAILURE WITH HYPOXIA; J96.02 - ACUTE RESPIRATORY FAILURE WITH HYPERCAPNIA Status: Acute Comment: Likely due to #2 , continue mech vent with SIMV, serial PCXR, ABG's, s/p L main bronchus evacuation of mucus plug (2) Mucus plugging of bronchi Code(s): J98.09 - OTHER DISEASES OF BRONCHUS, NOT ELSEWHERE CLASSIFIED Status : Acute (3) Acute diastolic heart failure, NYHA class 3 Code(s): I50.31 - ACUTE DIASTOLIC (CONGESTIVE) HEART FAILURE Status: Acute Comment: continue IV furosemide 20 mg BID, serial weights and I/O's (4) COPD exacerbation Code(s): J44.1 - CHRONIC OBSTRUCTIVE PULMONARY DISEASE W (ACUTE) EXACERBATION Status: Acute (5) Morbid obesity Code(s): E66.01 - MORBID (SEVERE) OBESITY DUE TO EXCESS CALORIES Status: Chronic Comment: Weight loss resources (6) Pneumonia Code(s): J18.9 - PNEUMONIA, UNSPECIFIED ORGANISM Status: Acute Qualifiers: Laterality: left Comment: continue IV Zosyn, Vancomycin, Duonebs - Plan continue antibiotics, respiratory therapy, incentive spirometry, DVT proph w/ SCDs * .Continue critical support and mech ventilation -: Continue Vanc/Zosyn -: PCXR in am -: Continue Lasix IV -: AM lab: CMP, CBC, ABG Review of Systems - Review of Systems Other: intubated - Medications/Allergies Allergies/Adverse Reactions: Allergies Allergy/AdvReac Type Severity Reaction Status Date / Time No Known Drug Allergies Allergy Unverified 04/05/19 19:10 Medications: Current Medications Acetaminophen (Tylenol) 650 mg MO Q6H PRN PRN Reason: Fever > 101 or Mild Pain Acetaminophen (Tylenol Elixir) 650 mg PO Q6H PRN PRN Reason: Fever > 101 or Mild Pain Albuterol/Ipratropium (Duoneb) 3 ml NEB [id number] [facility] Last Admin: 04/08/19 13:47 Dose: 3 ml Albuterol/Ipratropium (Duoneb) 3 ml NEB Q6H PRN PRN Reason: SOB &/or Wheezing Aspirin (Aspirin) 325 mg PO QAM-WM [facility] Last Admin: 04/08/19 07:30 Dose: 325 mg Bisacodyl (Dulcolax) 10 mg MO DAILYPRN PRN PRN Reason: Constipation Enoxaparin Sodium (Lovenox) 100 mg SC 2100 [facility] Enoxaparin Sodium (Lovenox) 40 mg SC DAILY [facility] Famotidine (Pepcid) 20 mg PER TUBE DAILY [facility] Last Admin: 04/08/19 07:32 Dose: Not Given Furosemide (Lasix) 40 mg SLOW IVP 0600,1400 [facility] Last Admin: 04/08/19 14:37 Dose: 40 mg Guaifenesin (Mucinex) 600 mg PO Q12HR [facility] Last Admin: 04/08/19 07:30 Dose: 600 mg Fentanyl Citrate 2,000 mcg/ (Sodium Chloride) 100 mls @ 0 mls/hr IV INF [facility]; Protocol Stop: 05/05/19 22:08 Fentanyl Citrate (Fentanyl Bolus) 250 mls @ 0 mls/hr IVPB PRN PRN PRN Reason: Breakthrough pain/agitation Stop: 05/05/19 22:08 Norepinephrine Bitartrate 8 mg (/ Dextrose/Water) 250 mls @ 0 mls/hr IVPB INF PRN; Protocol PRN Reason: TO MAINTAIN MAP > 65 Piperacillin Sod/Tazobactam (Sod 3.375 gm/ Sodium Chloride) 100 mls @ 200 mls/ hr IVPB Q6HR [facility] Last Admin: 04/08/19 10:51 Dose: 100 mls Dexmedetomidine HCl 200 mcg/ (Sodium Chloride) 50 mls @ 0 mls/hr IVPB INF [facility] Last Admin: 04/08/19 15:51 Dose: 50 mls Insulin Human Regular (Humulin R) 0 units SC .MILD SLIDING SCALE PRN PRN Reason: Mild Correctional Scale Lorazepam (Ativan) 2 mg SLOW IVP Q1H PRN PRN Reason: Breakthrough agitation Stop: 05/05/19 22:08 Last Admin: 04/08/19 15:36 Dose: 2 mg Mineral Oil/White Petrolatum (Systane Nighttime Eye Ointment) 0 gm EA EYE PRN PRN PRN Reason: Dry Eyes Morphine Sulfate (Morphine) 2 mg SLOW IVP Q1H PRN PRN Reason: BREAKTHROUGH PAIN/Agitation Stop: 05/05/19 22:08 Discontinue Previous Narcotic Pain Medications And Benzodiazepines 1 each FS .ONE [facility] Stop: 05/05/19 22:08 Propofol (Diprivan) 1,000 mg IV INF PRN; Protocol PRN Reason: TO ACHIEVE GOAL RASS Stop: 05/05/19 22:08 Last Admin: 04/08/19 15:36 Dose: 1,000 mg Propofol (Diprivan Bolus) 20 mg IV Q5MIN PRN PRN Reason: BREAKTHROUGH AGITATION Stop: 05/05/19 22:08 Sodium Chloride (Flush - Normal Saline) 10 ml IVF Q12HR [facility] Last Admin: 04/08/19 07:31 Dose: 10 ml Sodium Chloride (Flush - Normal Saline) 10 ml IVF PRN PRN PRN Reason: Saline Flush
[2019-04-08] MEDS ORDERED: Enoxaparin Sodium 100 MG/ML SYRINGE SC SCH (21:00)
[2019-04-09] MEDS: Propofol 1,000 MG/100 ML VIAL IV PRN ×4 (03:56→21:32)
[2019-04-09 05:09] LABS: ALT (SGPT) 133 U/L (8-55); AST (SGOT) 121 U/L (5-34); Albumin 2.8 g/dL (3.5-5.0); Alkaline Phosphatase 62 U/L (40-150); Anion Gap 15 mmol/L (10-20); BUN (Urea Nitrogen) 46 mg/dL (8.4-25.7); Bilirubin, Total 0.8 mg/dL (0.2-1.2); Calc. Creatinine Clearance 84 mL/min (70-130); Carbon Dioxide 35 mmol/L (22-29); Chloride 101 mmol/L (98-107); Estimated GFR-MDRD 36; Globulin 3.9 g/dL (2.4-3.5); Glucose 103 mg/dL (70-105); Potassium 4.5 mmol/L (3.5-5.1); Protein, Total 6.7 g/dL (6.0-8.3); Sodium 146 mmol/L (136-145)
[2019-04-09 05:16] LABS: Band 3 % (5-11); Eosinophils 2 % (0-10); Hemoglobin 16.6 g/dL (14.0-18.0); Lymphocytes 13 % (21-51); MDiff Complete? YES; Mean Corpuscular HGB CONC 29.7 g/dL (32.0-36.0); Mean Corpuscular Hemoglobin 27.6 pg (27.0-31.0); Mean Platelet Volume 8.9 fL (7.4-10.4); Monocytes 8 % (0-10); Neutrophil 73 % (42-75); Platelet Count 156 thou/uL (130-400); RBC Distribution Width 15.8 % (11.5-14.5); Reactive Lymphocytes 1 % (0-10); Red Blood Cell (RBC) Count 5.99 mill/uL (4.70-6.10); White Blood Cell (WBC) Count 7.6 thou/uL (4.8-10.8)
[2019-04-09 05:17] LABS: Actual Bicarbonate (HCO3a) 29.4 mEq/L (22-28); Base Excess (BEa) 4.5 mEq/L (-2.0 to +3.0); CO2 Tension 44.3 mmHg (35.0-45.0); Calcium, Ionized 1.13 mmol/L (1.12-1.30); Carboxyhemoglobin (COHb) 1.3 gm% (0.0-3.0); Hemoglobin (Hb) 16.8 g/dL (14.0-18.0); O2 Tension (PaO2) 61.3 mmHg (80.0-100.0); Potassium - ABG Lab 4.16 mmol/L (3.70-5.30); pH, Arterial 7.44 (7.35-7.45)
[2019-04-09] MEDS: Piperacillin/Tazobactam 3.375 GM in Sodium Chloride 0.9% 100 ML IVPB SCH ×3 (05:27→17:57)
[2019-04-09] MEDS: Furosemide 40 MG/4 ML VIAL SLOW IVP SCH ×2 (05:27→13:56)
[2019-04-09 05:32] LABS: Puncture Site RRA
[2019-04-09 05:33] LABS: ALV-art Gradient 311.125 (0-20)
[2019-04-09] MEDS: Famotidine 40 MG/5 ML Oral Suspension PER TUBE SCH (07:45)
[2019-04-09] MEDS: Enoxaparin Sodium 40 MG/0.4 ML SYRINGE SC SCH (07:45)
[2019-04-09] MEDS: Aspirin 325 MG TAB PO SCH (07:45)
[2019-04-09] MEDS: guaiFENesin ER 600 MG TAB PO SCH ×2 (07:47→20:36)
--- NOTE | 2019-04-09 08:21 | RAD ---
PORTABLE CHEST: HISTORY: CCU followup. Ventilator followup. COMPARISON: 04/08/2019. FINDINGS: ET tube is unchanged. There is hazy opacification of the right lung base. Both CP angles are obscur ed. Findings indicate bilateral effusions and bibasilar atelectasis. Upper lung priest remain clear . IMPRESSION: Bilateral effusions and bibasilar atelectasis or infiltrates. No significant change from yesterday. POS: JARED
[2019-04-09] MEDS: Enoxaparin Sodium 100 MG/ML SYRINGE SC SCH (09:09)
--- NOTE | 2019-04-09 10:20 | PQF ---
TORREY MELTON RICHA MD [id number] CLINICAL DOCUMENTATION IMPROVEMENT CLARIFICATION FORM: ICD-10 Updated PLEASE DO AN ADDENDUM TO THE PROGRESS NOTE WITH ANY DOCUMENTATION UPDATES OR ADDITIONS AND CARRY THROUGH TO DC SUMMARY. THANK YOU. DATE: 04/08 ATTN : DR. PETE HARDING Please exercise your independent, professional judgment in responding to the clarification form. Clinical indicators are provided on the bottom of this form for your review. Please check appropriate box(s) to clarify if the following diagnosis has been ruled in or ruled out: SEPSIS W/ACUTE ORGAN DYSFUNCTION [ ] Ruled in diagnosis [ X ] Continue to treat [ ] Resolved [ ] Ruled out diagnosis [ ] Other diagnosis [ ] Unable to determine In addition, please specify: Present on Admission (POA): [X ] Yes [ ] No [ ] Unable to determine For continuity of documentation, please document condition throughout progress notes and discharge summary. Thank You. CLINICAL INDICATORS - SIGNS / SYMPTOMS / LABS WBC: 14.7 (04/05) BP (IN ED 04/05): 81/62-143/87 H&P 04/05 (LADHA): IMPRESSION: 1) ACUTE HYPOXIC/HYPERCAPNIC RESPIRATORY FAILURE ; 2) TOXIC METABOLIC ENCEPHALOPATHY, MULTIFACTORIAL; 3) SEPSIS, W/ACUTE ORGAN DYSFUNCTION 2/2 PNEUMONIA, SUSPECTED ASPIRATION; 8) TASHIA ON CKD 3 PULMONOLOGY CONSULT 04/05: IMPRESSION: 1) COPD EXACERBATION; 5) PROBABLE INTRAVASCULAR VOLUME DEPLETION THAT IS SIGNIFICANT PN 04/06 (RENETTA) & 04/07 (JOSÉ MIGUEL): ACUTE PNEUMONIA, LEFT NO FURTHER MENTION OF SEPSIS TO DATE RISKS: L SIDED PNEUMONIA TOXIC METABOLIC ENCEPHALOPATHY TASHIA TREATMENT: IVF (2L NS IN ED) IV ANTIBIOTICS (VANCOMYCIN 04/05 - 7; ZOSYN 04/05 - PRESENT) LEVOPHED (04/05-) THANK YOU! Beulah (This form is maintained as a part of the permanent medical record) 2014 [employer]. All Rights Reserved Beulah Ramirez RN, BSN [email or web address] Office: [phone] [facility]ITALWali
--- NOTE | 2019-04-09 14:32 | PDOC.PN ---
- Subjective Encounter Start Date: 04/09/19 Encounter Start Time: 14:30 Subjective: no change. remains intubated -: care discussed w RN - Objective MAR Reviewed: Yes Vital Signs & Weight: Vital Signs (12 hours) Temp Pulse Resp BP Pulse Ox 04/09/19 13:08 71 123/82 04/09/19 12:00 99.4 F 17 04/09/19 11:00 99.4 F 04/09/19 10:13 72 92/46 L 04/09/19 10:00 8 L 04/09/19 08:00 14 93 L 04/09/19 07:00 99.1 F 04/09/19 06:43 73 13 107/53 L 96 04/09/19 06:00 13 04/09/19 05:00 100.5 F H 04/09/19 04:00 14 Weight Admit Weight 319 lb 10.7 oz Weight 312 lb 6.32 oz Most Recent Monitor Data Heart Rate from ECG 69 NIBP 123/82 NIBP BP-Mean 95 Respiration from ECG 16 SpO2 95 I&O: 04/08/19 04/09/19 04/10/19 06:59 06:59 06:59 Intake Total 2141 2340 160 Output Total [address] [place] [address] [phone] Result Diagrams: 04/09/19 04:12 04/09/19 04:12 Additional Labs: Microbiology 04/05/19 19:29 Urine andrew catheter Urine Culture - Final NO GROWTH AT 36 HOURS 04/07/19 07:50 Bronchial Washing Respiratory Culture - Preliminary 04/05/19 19:22 Venous blood - Left Hand Blood Culture - Preliminary NO GROWTH AT 48 HOURS 04/05/19 19:15 Venous blood - Right Hand Blood Culture - Preliminary NO GROWTH AT 48 HOURS Laboratory Tests 04/05/19 04/05/19 04/05/19 18:40 18:40 23:23 WBC 14.7 H Creatinine 2.50 H 2.57 H 04/06/19 04/06/19 04/07/19 03:30 03:30 03:30 WBC 12.4 H 8.7 Creatinine 2.53 H 04/07/19 04/08/19 04/08/19 03:30 04:20 04:20 WBC 7.3 Creatinine 2.38 H 1.81 H 04/09/19 04/09/19 04:12 04:12 WBC 7.6 Creatinine 1.91 H Phys Exam - Physical Examination Constitutional: NAD HEENT: PERRLA, moist MMs Neck: no JVD Respiratory: no wheezing, no rales, no rhonchi Cardiovascular: RRR, no significant murmur Gastrointestinal: soft, non-tender, no distention, positive bowel sounds Musculoskeletal: no edema, pulses present Lymphatic: no nodes Skin: no rash Dx/Plan (1) Acute respiratory failure with hypoxia and hypercapnia Code(s): J96.01 - ACUTE RESPIRATORY FAILURE WITH HYPOXIA; J96.02 - ACUTE RESPIRATORY FAILURE WITH HYPERCAPNIA Status: Acute Comment: Likely due to #2 , continue mech vent with SIMV, serial PCXR, ABG's, s/p L main bronchus evacuation of mucus plug (2) Mucus plugging of bronchi Code(s): J98.09 - OTHER DISEASES OF BRONCHUS, NOT ELSEWHERE CLASSIFIED Status : Acute (3) Acute diastolic heart failure, NYHA class 3 Code(s): I50.31 - ACUTE DIASTOLIC (CONGESTIVE) HEART FAILURE Status: Acute Comment: continue IV furosemide 20 mg BID, serial weights and I/O's (4) COPD exacerbation Code(s): J44.1 - CHRONIC OBSTRUCTIVE PULMONARY DISEASE W (ACUTE) EXACERBATION Status: Acute Comment: on nebs. (5) Morbid obesity Code(s): E66.01 - MORBID (SEVERE) OBESITY DUE TO EXCESS CALORIES Status: Chronic Comment: Weight loss resources (6) Pneumonia Code(s): J18.9 - PNEUMONIA, UNSPECIFIED ORGANISM Status: Acute Qualifiers: Laterality: left Comment: continue IV Zosyn, Vancomycin, Duonebs (7) Sepsis Code(s): A41.9 - SEPSIS, UNSPECIFIED ORGANISM Status: Acute Comment: due to suspected PNA.follow Cx. empiric ABx - Plan continue antibiotics, respiratory therapy, DVT proph w/SCDs started on Lovenox for suspected PE.too unstable for CTA -: cont supportive care and defer to PCCM -: AM labs -: not on any steroids -: renal Fx improving. monitor * .
--- NOTE | 2019-04-09 17:25 | PRG ---
DATE OF SERVICE: 04/09/2019 SUBJECTIVE: Mr. Mak did well overnight. His gas exchange has improved significantly overnight. OBJECTIVE: VITAL SIGNS: He is afebrile, respiratory rate is 15, heart rate is in the 70s, blood pressure this afternoon is 125/80. Intake and outputs -4 L. His lower extremity edema and his abdominal girth had decreased significantly. His weight is recorded down to 312, although he lost 8 pounds with a 4 L diuresis, going from 315 to 307. These weight scales are not accurate. LUNGS: Clear and distant. HEART: Regular rhythm. ABDOMEN: Soft. EXTREMITIES: Without asymmetry. NEUROLOGIC: Nonfocal. LABORATORY DATA: White count 7.6, hemoglobin 16.6, and platelets 156,000. Sodium 146, potassium 4.5, chloride 101, bicarb 35, BUN 46, and creatinine 1.91. Liver enzymes are still mildly elevated, but unchanged. Doppler venogram yesterday showed a clot around where his catheter was inserted in his femoral vein. It is impossible to know whether or not he had a bigger clot here and that is embolized or just this. I have recommended that he be started on 1 mg/kg subcu of Lovenox today. This started last night. I met with family and answered all their questions. He is not a candidate for weaning, but at least he has turned the corner maybe a little bit. Hopefully, by this week and/or first part of next week, we can consider weaning, but at this point in time given his gas exchange problems yesterday, we will continue mechanical ventilation, nutritional support, etc. CRITICAL CARE TIME: 30 minutes. Job ID: [id number]
[2019-04-09] MEDS: Lorazepam 2 MG/ML VIAL SLOW IVP PRN (22:29)
[2019-04-10] MEDS: Piperacillin/Tazobactam 3.375 GM in Sodium Chloride 0.9% 100 ML IVPB SCH ×4 (00:31→18:03)
[2019-04-10] MEDS: Propofol 1,000 MG/100 ML VIAL IV PRN ×3 (02:58→19:40)
[2019-04-10] MEDS: Furosemide 40 MG/4 ML VIAL SLOW IVP SCH ×2 (05:10→14:21)
[2019-04-10 05:33] LABS: Band 12 % (5-11); Eosinophils 1 % (0-10); Hemoglobin 16.6 g/dL (14.0-18.0); Lymphocytes 10 % (21-51); MDiff Complete? YES; Mean Corpuscular HGB CONC 29.7 g/dL (32.0-36.0); Mean Corpuscular Hemoglobin 27.3 pg (27.0-31.0); Mean Platelet Volume 9.8 fL (7.4-10.4); Monocytes 7 % (0-10); Neutrophil 70 % (42-75); Platelet Count 137 thou/uL (130-400); RBC Distribution Width 15.9 % (11.5-14.5); Red Blood Cell (RBC) Count 6.06 mill/uL (4.70-6.10)
[2019-04-10 07:16] LABS: Actual Bicarbonate (HCO3a) 35.2 mEq/L (22-28); Base Excess (BEa) 7.7 mEq/L (-2.0 to +3.0); CO2 Tension 59.5 mmHg (35.0-45.0); Calcium, Ionized 1.18 mmol/L (1.12-1.30); Carboxyhemoglobin (COHb) 1.5 gm% (0.0-3.0); Hemoglobin (Hb) 16.7 g/dL (14.0-18.0); O2 Tension (PaO2) 65.5 mmHg (80.0-100.0); Potassium - ABG Lab 4.16 mmol/L (3.70-5.30); pH, Arterial 7.39 (7.35-7.45)
[2019-04-10 07:18] LABS: ALV-art Gradient 252.275 (0-20); Puncture Site LRA
[2019-04-10 08:26] LABS: Chloride 103 mmol/L (98-107); Potassium 4.4 mmol/L (3.5-5.1); Sodium 146 mmol/L (136-145)
[2019-04-10 08:27] LABS: Calcium 9.4 mg/dL (7.8-10.44); Globulin 3.8 g/dL (2.4-3.5); Glucose 111 mg/dL (70-105); Protein, Total 6.8 g/dL (6.0-8.3)
[2019-04-10 08:29] LABS: Anion Gap 12 mmol/L (10-20); Bilirubin, Total 0.6 mg/dL (0.2-1.2); Carbon Dioxide 35 mmol/L (22-29)
[2019-04-10 08:30] LABS: Alkaline Phosphatase 58 U/L (40-150)
[2019-04-10 08:31] LABS: BUN (Urea Nitrogen) 48 mg/dL (8.4-25.7); Calc. Creatinine Clearance 90 mL/min (70-130); Estimated GFR-MDRD 42
[2019-04-10 08:33] LABS: ALT (SGPT) 117 U/L (8-55); AST (SGOT) 134 U/L (5-34)
--- NOTE | 2019-04-10 08:45 | RAD ---
PORTABLE CHEST: HISTORY: CCU followup. COMPARISON: 04/09/2019. FINDINGS/IMPRESSION: Confluent infiltrate in the right mid and lower lung and confluent infiltrate in the left lung base o bscures the diaphragm. Cardiomegaly with vascular congestion. ET tube appears to have been removed. NG tube remains in place. POS: [facility]
[2019-04-10] MEDS: Famotidine 40 MG/5 ML Oral Suspension PER TUBE SCH (09:00)
[2019-04-10] MEDS: Enoxaparin Sodium 100 MG/ML SYRINGE SC SCH (09:00)
[2019-04-10] MEDS: guaiFENesin ER 600 MG TAB PO SCH ×2 (09:00→20:52)
[2019-04-10] MEDS: Aspirin 325 MG TAB PO SCH (09:00)
[2019-04-10] MEDS: Enoxaparin Sodium 40 MG/0.4 ML SYRINGE SC SCH (09:00)
[2019-04-10] MEDS ORDERED: PROPOFOL 0 ML ONE (13:22)
[2019-04-10] MEDS ORDERED: Propofol 1,000 MG/100 ML VIAL IV ONE (14:25)
[2019-04-10] MEDS ORDERED: acetaZOLAMIDE Sodium 500 mg Vial IVP SCH (16:30)
--- NOTE | 2019-04-10 17:13 | PDOC.PN ---
- Subjective Encounter Start Date: 04/10/19 Encounter Start Time: 17:11 Subjective: remains intubated and sedated.care discussed w RN -: no new events - Objective MAR Reviewed: Yes Vital Signs & Weight: Vital Signs (12 hours) Temp Pulse Resp BP Pulse Ox 04/10/19 16:00 12 04/10/19 15:00 99.3 F 04/10/19 14:33 90 114/64 04/10/19 14:00 24 H 04/10/19 12:37 74 110/59 L 04/10/19 12:35 71 11 L 93 L 04/10/19 11:50 93 L 04/10/19 11:41 12 04/10/19 11:21 73 93/61 04/10/19 11:00 100.6 F H 04/10/19 10:00 12 04/10/19 08:00 18 92 L 04/10/19 07:00 100.1 F H 04/10/19 06:46 89 120/76 04/10/19 06:43 88 22 H 94 L 04/10/19 06:00 15 Weight Admit Weight 319 lb 10.7 oz Weight 299 lb 6.204 oz Most Recent Monitor Data Heart Rate from ECG 85 NIBP 147/86 NIBP BP-Mean 106 Respiration from ECG 15 SpO2 90 I&O: 04/09/19 04/10/19 04/11/19 06:59 06:59 06:59 Intake Total 2340 3158 160 Output Total 3501 3766 4903 Balance -1133 -9860 -1220 Result Diagrams: 04/10/19 04:13 04/10/19 04:13 Additional Labs: Microbiology 04/07/19 07:50 Bronchial Washing Respiratory Culture - Final 04/05/19 19:29 Urine andrew catheter Urine Culture - Final NO GROWTH AT 36 HOURS 04/07/19 07:50 Bronchial Washing Respiratory Culture - Preliminary 04/05/19 19:22 Venous blood - Left Hand Blood Culture - Preliminary NO GROWTH AT 48 HOURS 04/05/19 19:15 Venous blood - Right Hand Blood Culture - Preliminary NO GROWTH AT 48 HOURS Laboratory Tests 04/05/19 04/05/19 04/06/19 18:40 23:23 03:30 Creatinine 2.50 H 2.57 H 2.53 H 04/07/19 04/08/19 04/09/19 03:30 04:20 04:12 Creatinine 2.38 H 1.81 H 1.91 H 04/10/19 04:13 Creatinine 1.69 H Phys Exam - Physical Examination Constitutional: NAD intubated and sedated HEENT: moist MMs, sclera anicteric ETT Neck: no nodes, no JVD, supple, full ROM Respiratory: no wheezing, no rales, no rhonchi Cardiovascular: RRR, no significant murmur Gastrointestinal: soft, no distention, positive bowel sounds Musculoskeletal: no edema, pulses present sedated Deviation from normal: sedated Skin: no rash Dx/Plan (1) Acute respiratory failure with hypoxia and hypercapnia Code(s): J96.01 - ACUTE RESPIRATORY FAILURE WITH HYPOXIA; J96.02 - ACUTE RESPIRATORY FAILURE WITH HYPERCAPNIA Status: Acute Comment: Likely due to #2 , continue mech vent with SIMV, serial PCXR, ABG's, s/p L main bronchus evacuation of mucus plug (2) Mucus plugging of bronchi Code(s): J98.09 - OTHER DISEASES OF BRONCHUS, NOT ELSEWHERE CLASSIFIED Status : Acute Comment: Follow bronch Wash Cx-negative so far (3) Acute diastolic heart failure, NYHA class 3 Code(s): I50.31 - ACUTE DIASTOLIC (CONGESTIVE) HEART FAILURE Status: Acute Comment: continue IV furosemide 20 mg BID, serial weights and I/O's (4) COPD exacerbation Code(s): J44.1 - CHRONIC OBSTRUCTIVE PULMONARY DISEASE W (ACUTE) EXACERBATION Status: Acute Comment: on nebs. (5) Morbid obesity Code(s): E66.01 - MORBID (SEVERE) OBESITY DUE TO EXCESS CALORIES Status: Chronic Comment: Weight loss resources (6) Pneumonia Code(s): J18.9 - PNEUMONIA, UNSPECIFIED ORGANISM Status: Acute Qualifiers: Laterality: left Comment: continue IV Zosyn, Vancomycin, Duonebs (7) Sepsis Code(s): A41.9 - SEPSIS, UNSPECIFIED ORGANISM Status: Acute Comment: due to suspected PNA.follow Cx. empiric ABx - Plan continue antibiotics, PT/OT, respiratory therapy, DVT proph w/SCDs supportive care -: remains unweanable per PCCM -: no family at bedside -: Cr stable. monitor -: sodium slightly hgh.monitor * . Review of Systems - Review of Systems Other: can not b eobained due to sedation - Medications/Allergies Allergies/Adverse Reactions: Allergies Allergy/AdvReac Type Severity Reaction Status Date / Time No Known Drug Allergies Allergy Unverified 04/05/19 19:10 Medications: Current Medications Acetaminophen (Tylenol) 650 mg MT Q6H PRN PRN Reason: Fever > 101 or Mild Pain Acetaminophen (Tylenol Elixir) 650 mg PO Q6H PRN PRN Reason: Fever > 101 or Mild Pain Acetazolamide Sodium (Diamox) 500 mg IVP NOW [facility] Stop: 04/10/19 18:30 Last Admin: 04/10/19 16:34 Dose: 500 mg Albuterol/Ipratropium (Duoneb) 3 ml NEB [id number] [facility] Last Admin: 04/10/19 12:35 Dose: 3 ml Albuterol/Ipratropium (Duoneb) 3 ml NEB Q6H PRN PRN Reason: SOB &/or Wheezing Aspirin (Aspirin) 325 mg PO QAM-WM [facility] Last Admin: 04/10/19 09:00 Dose: 325 mg Bisacodyl (Dulcolax) 10 mg MT DAILYPRN PRN PRN Reason: Constipation Enoxaparin Sodium (Lovenox) 120 mg SC 0900,2100 [facility] Famotidine (Pepcid) 20 mg PER TUBE DAILY [facility] Last Admin: 04/10/19 09:00 Dose: 20 mg Furosemide (Lasix) 40 mg SLOW IVP 0600,1400 [facility] Last Admin: 04/10/19 14:21 Dose: 40 mg Guaifenesin (Mucinex) 600 mg PO Q12HR [facility] Last Admin: 04/10/19 09:00 Dose: 600 mg Fentanyl Citrate 2,000 mcg/ (Sodium Chloride) 100 mls @ 0 mls/hr IV INF FAISAL; Protocol Stop: 05/05/19 22:08 Fentanyl Citrate (Fentanyl Bolus) 250 mls @ 0 mls/hr IVPB PRN PRN PRN Reason: Breakthrough pain/agitation Stop: 05/05/19 22:08 Norepinephrine Bitartrate 8 mg (/ Dextrose/Water) 250 mls @ 0 mls/hr IVPB INF PRN; Protocol PRN Reason: TO MAINTAIN MAP > 65 Piperacillin Sod/Tazobactam (Sod 3.375 gm/ Sodium Chloride) 100 mls @ 200 mls/ hr IVPB Q6HR [facility] Last Admin: 04/10/19 11:33 Dose: 100 mls Dexmedetomidine HCl 400 mcg/ (Sodium Chloride) 100 mls @ 0 mls/hr IVPB INF [facility] Last Admin: 04/10/19 10:16 Dose: 100 mls Insulin Human Regular (Humulin R) 0 units SC .MILD SLIDING SCALE PRN PRN Reason: Mild Correctional Scale Lorazepam (Ativan) 2 mg SLOW IVP Q1H PRN PRN Reason: Breakthrough agitation Stop: 05/05/19 22:08 Last Admin: 04/09/19 22:29 Dose: 2 mg Mineral Oil/White Petrolatum (Systane Nighttime Eye Ointment) 0 gm EA EYE PRN PRN PRN Reason: Dry Eyes Morphine Sulfate (Morphine) 2 mg SLOW IVP Q1H PRN PRN Reason: BREAKTHROUGH PAIN/Agitation Stop: 05/05/19 22:08 Discontinue Previous Narcotic Pain Medications And Benzodiazepines 1 each FS .ONE [facility] Stop: 05/05/19 22:08 Propofol (Diprivan) 1,000 mg IV INF PRN; Protocol PRN Reason: TO ACHIEVE GOAL RASS Stop: 05/05/19 22:08 Last Admin: 04/10/19 06:32 Dose: 1,000 mg Propofol (Diprivan Bolus) 20 mg IV Q5MIN PRN PRN Reason: BREAKTHROUGH AGITATION Stop: 05/05/19 22:08 Sodium Chloride (Flush - Normal Saline) 10 ml IVF Q12HR [facility] Last Admin: 04/10/19 09:00 Dose: 10 ml Sodium Chloride (Flush - Normal Saline) 10 ml IVF PRN PRN PRN Reason: Saline Flush
--- NOTE | 2019-04-10 17:21 | PRG ---
DATE OF SERVICE: 04/10/2019 SUBJECTIVE: Mr. Mak has had dramatic improvement in gas exchange in the last 24 hours. OBJECTIVE: VITAL SIGNS: Blood pressures in 120 to 150 range, last blood pressure is 152/88. Heart rate is 94. . His FiO2 requirements have decreased significantly. LUNGS: Clear. HEART: Regular rhythm. ABDOMEN: Soft and nontender. EXTREMITIES: Without clubbing, cyanosis, or edema. LABORATORY DATA: White count 8, hemoglobin 16.6, platelets 137. Sodium 146, potassium 4.4, chloride 103, bicarb 35, BUN 49, creatinine 1.69. A pH 7.39, CO2 of 59, pO2 of 65. IMPRESSION: 1. Respiratory failure. This is multifactorial and acute. 2. Chronic obstructive pulmonary disease. This is strongly suspected with an exacerbation. 3. Diastolic heart failure. 4. Mucus plugging. 5. Clot in his femoral vein associated with the catheter. Since we could not work him up for thromboembolic disease, he will be anticoagulated for 3 months. 6. Tobacco use up until admission. PLAN: We will increase his Lovenox today to a full dose now. His renal function is returning towards normal. He will receive a dose of Diamox today. I think some of his alkalosis is related to his diuresis. We will start slowly weaning him from mechanical ventilation. Hopefully, we can get him extubated by this weekend. CRITICAL CARE TIME: 30 minutes. Job ID: [id number] MTDD
[2019-04-10] MEDS: Enoxaparin Sodium 120 MG/0.8 ML SYRINGE SC SCH (20:52)
[2019-04-11] MEDS: Piperacillin/Tazobactam 3.375 GM in Sodium Chloride 0.9% 100 ML IVPB SCH ×5 (00:10→22:56)
[2019-04-11] MEDS: Propofol 1,000 MG/100 ML VIAL IV PRN ×3 (01:24→11:34)
[2019-04-11 05:26] LABS: Band 15 % (5-11); Hemoglobin 15.3 g/dL (14.0-18.0); Lymphocytes 13 % (21-51); MDiff Complete? YES; Mean Corpuscular HGB CONC 27.8 g/dL (32.0-36.0); Mean Corpuscular Hemoglobin 25.7 pg (27.0-31.0); Mean Corpuscular Volume 92.2 fL (78.0-98.0); Mean Platelet Volume 9.4 fL (7.4-10.4); Monocytes 4 % (0-10); Neutrophil 68 % (42-75); Platelet Count 136 thou/uL (130-400); Platelet Morphology Comment Appears Adequate; RBC Distribution Width 15.8 % (11.5-14.5); RBC Morphology Normal; Red Blood Cell (RBC) Count 5.95 mill/uL (4.70-6.10); White Blood Cell (WBC) Count 7.8 thou/uL (4.8-10.8)
[2019-04-11 05:35] LABS: ALT (SGPT) 84 U/L (8-55); AST (SGOT) 172 U/L (5-34); Albumin 2.9 g/dL (3.5-5.0); Alkaline Phosphatase 52 U/L (40-150); Anion Gap 12 mmol/L (10-20); BUN (Urea Nitrogen) 55 mg/dL (8.4-25.7); Bilirubin, Total 0.7 mg/dL (0.2-1.2); Calc. Creatinine Clearance 86 mL/min (70-130); Calcium 9.4 mg/dL (7.8-10.44); Carbon Dioxide 33 mmol/L (22-29); Chloride 103 mmol/L (98-107); Estimated GFR-MDRD 39; Globulin 3.8 g/dL (2.4-3.5); Glucose 114 mg/dL (70-105); Potassium 4.1 mmol/L (3.5-5.1); Protein, Total 6.7 g/dL (6.0-8.3); Sodium 144 mmol/L (136-145)
[2019-04-11] MEDS: Furosemide 40 MG/4 ML VIAL SLOW IVP SCH ×2 (05:57→13:58)
[2019-04-11 07:23] LABS: Actual Bicarbonate (HCO3a) 31.9 mEq/L (22-28); Base Excess (BEa) 7.1 mEq/L (-2.0 to +3.0); CO2 Tension 44.7 mmHg (35.0-45.0); Calcium, Ionized 1.21 mmol/L (1.12-1.30); Carboxyhemoglobin (COHb) 1.8 gm% (0.0-3.0); Hemoglobin (Hb) 16.7 g/dL (14.0-18.0); Potassium - ABG Lab 4.22 mmol/L (3.70-5.30); pH, Arterial 7.47 (7.35-7.45)
[2019-04-11 07:45] LABS: O2 Tension (PaO2) 58.7 mmHg (80.0-100.0)
[2019-04-11 07:46] LABS: ALV-art Gradient 241.925 (0-20); Puncture Site L.R.
--- NOTE | 2019-04-11 08:05 | RAD ---
PORTABLE CHEST: Date: 04/11/19 COMPARISON: Prior day's exam. HISTORY: Respiratory distress. FINDINGS: Patient is rotated on this exam. The bibasilar lung changes appear similar to the prior study. There is what is probably an endotracheal and possibly a NG tube present. It is difficult to assess due to technique. Left subclavian line is seen. IMPRESSION: Fairly stable chest. Poor visualization of what appears to be endotracheal and NG tubes. POS: [facility]
[2019-04-11] MEDS: Enoxaparin Sodium 120 MG/0.8 ML SYRINGE SC SCH ×2 (09:19→20:43)
[2019-04-11] MEDS: Famotidine 40 MG/5 ML Oral Suspension PER TUBE SCH (09:20)
[2019-04-11] MEDS: Aspirin 325 MG TAB PO SCH (09:20)
[2019-04-11] MEDS: guaiFENesin ER 600 MG TAB PO SCH (09:24)
--- NOTE | 2019-04-11 10:01 | PRG ---
DATE OF SERVICE: 04/11/2019 SUBJECTIVE: Mr. Mak is sedated for ventilation. OBJECTIVE: VITAL SIGNS: Heart rates in the 70s, blood pressure 109/73, respiratory rate 16, oximetry is 95. I have turned his PEEP down to 8 today. His FiO2 is at 50%. His oximetry never dropped below 91 after I turned his PEEP down. His intake and output were -2110. LUNGS: Distant, clear. HEART: Regular rhythm. S1 and S2 are normal. ABDOMEN: Soft and nontender. EXTREMITIES: With stasis changes. I met with the and answered all of her questions. LABORATORY DATA: White count 7.8, hemoglobin 15.3, platelets 136. Sodium 144, potassium 4.1, chloride 103, bicarb 33, BUN 55, creatinine 1.78. A pH 7.47, CO2 of 44, pO2 of 58. He has some blood in his [place], which is not really a concern. IMPRESSION: 1. Respiratory failure secondary to chronic obstructive pulmonary disease exacerbation with extensive mucus plugging requiring bronchoscopy. 2. Volume overload with anasarca on admission, probably in part secondary to diastolic heart failure and in part secondary to right heart dysfunction secondary to chronic obstructive pulmonary disease exacerbation. 3. History of sleep apnea, that is not treated. He is noncompliant with CPAP. 4. Obesity. 5. Deconditioning. 6. Clot in his femoral vein adjacent to a catheter, on Lovenox. His creatinine bumped a little bit, so we will probably cut his Lovenox back to once a day. He is not currently weanable. We will work towards weaning over the next few days as I have explained to the . Hopefully, we can avoid a tracheostomy in him. Critical care time, 30 minutes. Job ID: [id number] MTDD
--- NOTE | 2019-04-11 13:56 | PDOC.CTH ---
Cardiology Progress Note - Subjective Intubated, sedated. - Objective Vital Signs Temp Pulse Resp BP Pulse Ox 04/11/19 13:39 80 121/74 04/11/19 13:37 81 21 H 95 04/11/19 12:00 13 04/11/19 10:41 79 104/71 04/11/19 10:00 20 04/11/19 08:00 98.7 F 21 H 04/11/19 06:57 77 109/73 04/11/19 06:56 75 16 95 04/11/19 06:00 16 04/11/19 04:00 99.7 F H 15 04/11/19 02:05 85 04/11/19 02:00 17 Admit Weight 319 lb 10.7 oz Weight 4.734 oz 04/10/19 04/11/19 04/12/19 06:59 06:59 06:59 Intake Total 3158 2485 30 Output Total 5760 4595 920 Balance -2808 -2579 -137 - Physical Examination General/Neuro: NAD Neck: no JVD present Lungs: unlabored respirations Heart: PMI normal, RRR Abdomen: no HSM, NT/ND, soft Extremities: + femoral B - Labs Result Diagrams: 04/11/19 04:10 04/11/19 04:10 Troponin/CKMB CK-MB (CK-2) 5.5 ng/mL (0-6.6) 04/05/19 23:23 Troponin I 0.273 ng/mL (< 0.028) H 04/05/19 23:23 - Assessment/Plan Respiratory failure Obesity CHF COPD OLENA DVT Ventilated On lovenox (changed to QD) Decrease ASa to 91mg QAM Abx
[2019-04-11] MEDS ORDERED: Aspirin Chewable 81 MG TAB PO SCH (14:15)
[2019-04-11] MEDS ORDERED: Vancomycin HCl 1 GM in Premix Bag 1 BAG IVPB SCH (19:00)
[2019-04-11] MEDS: Acetaminophen 650 MG/20.3 ML UDCUP PO PRN (19:40)
--- NOTE | 2019-04-11 20:34 | PDOC.PN ---
- Subjective Encounter Start Date: 04/11/19 Encounter Start Time: 19:05 Subjective: f[facility] -: Remains intubated and unweanable. Nursing reports fever this pm - Objective MAR Reviewed: Yes Vital Signs & Weight: Vital Signs (12 hours) Temp Pulse Resp BP Pulse Ox 04/11/19 18:31 94 18 90 L 04/11/19 18:00 101.5 F H 20 04/11/19 16:00 100.8 F H 21 H 04/11/19 15:15 82 110/66 04/11/19 14:00 20 04/11/19 13:39 80 121/74 04/11/19 13:37 81 21 H 95 04/11/19 12:00 100.8 F H 13 04/11/19 10:41 79 104/71 04/11/19 10:00 20 Weight Admit Weight 319 lb 10.7 oz Weight 4.734 oz Most Recent Monitor Data Heart Rate from ECG 95 NIBP 149/89 NIBP BP-Mean 109 Respiration from ECG 17 SpO2 89 I&O: 04/10/19 04/11/19 04/12/19 06:59 06:59 06:59 Intake Total 4638 1419 1794 Output Total 3895 0741 0644 [facility]2981 -1294 -816 Result Diagrams: 04/11/19 04:10 04/11/19 04:10 Additional Labs: Microbiology 04/07/19 07:50 Bronchial Washing Respiratory Culture - Final 04/05/19 19:29 Urine andrew catheter Urine Culture - Final NO GROWTH AT 36 HOURS 04/05/19 19:22 Venous blood - Left Hand Blood Culture - Final NO GROWTH IN 5 DAYS 04/05/19 19:15 Venous blood - Right Hand Blood Culture - Final NO GROWTH IN 5 DAYS Laboratory Tests 04/05/19 04/05/19 04/05/19 18:40 18:40 18:40 WBC 14.7 H Hgb 18.3 H Creatinine 2.50 H AST 94 H Ammonia B-Natriuretic Peptide 2036.6 H TSH 3rd Generation Cortisol Vancomycin Trough Plasma Alcohol 04/05/19 04/05/19 04/05/19 18:40 18:40 19:15 WBC Hgb Creatinine AST Ammonia 84 H B-Natriuretic Peptide TSH 3rd Generation 5.7125 H Cortisol Vancomycin Trough Plasma Alcohol Less than 10 07/06/19 07/07/19 07/07/19 23:23 03:30 03:30 WBC 12.4 H Hgb 16.6 Creatinine 2.57 H 2.53 H AST 105 H Ammonia B-Natriuretic Peptide TSH 3rd Generation Cortisol Vancomycin Trough Plasma Alcohol 04/06/19 04/06/19 04/07/19 03:30 03:30 03:30 WBC Hgb Creatinine AST 82 H Ammonia 34 B-Natriuretic Peptide TSH 3rd Generation Cortisol 16.70 Vancomycin Trough Plasma Alcohol 04/07/19 21:02 WBC Hgb Creatinine AST Ammonia B-Natriuretic Peptide TSH 3rd Generation Cortisol Vancomycin Trough 13.9 Plasma Alcohol Radiology Reviewed by me: Yes (PCXR - bibasilar edema, ETT in place) EKG Reviewed by me: Yes (Tele - SR) Phys Exam - Physical Examination sedate on mech ventilation, ETT in place HEENT: sclera anicteric, oral pharynx no lesions Neck: no nodes, no JVD, supple, full ROM diminished bilaterally, bibasilar crackles S1, S2 Cardiovascular: RRR, no significant murmur, no rub, gallop Gastrointestinal: soft, non-tender, no distention, positive bowel sounds Musculoskeletal: pulses present, edema present sedate on mech vent Skin: normal turgor, cap refill <2 seconds Dx/Plan (1) Acute respiratory failure with hypoxia and hypercapnia Code(s): J96.01 - ACUTE RESPIRATORY FAILURE WITH HYPOXIA; J96.02 - ACUTE RESPIRATORY FAILURE WITH HYPERCAPNIA Status: Acute Comment: Likely due to # 2 and COPD, continue mech vent with SIMV, serial PCXR, ABG's, s/p L main bronchus evacuation of mucus plug (2) Atelectasis of left lung Code(s): J98.11 - ATELECTASIS Status: Acute Comment: See above, improving aeration (3) Acute diastolic heart failure, NYHA class 3 Code(s): I50.31 - ACUTE DIASTOLIC (CONGESTIVE) HEART FAILURE Status: Acute Comment: continue IV furosemide 40 mg BID, serial weights and I/O's (4) Pneumonia Code(s): J18.9 - PNEUMONIA, UNSPECIFIED ORGANISM Status: Acute Qualifiers: Laterality: left Comment: continue IV Zosyn, Vancomycin added, Duonebs, repeat blood cx today (5) Morbid obesity Code(s): E66.01 - MORBID (SEVERE) OBESITY DUE TO EXCESS CALORIES Status: Chronic Comment: Weight loss resources (6) TASHIA (acute kidney injury) Code(s): N17.9 - ACUTE KIDNEY FAILURE, UNSPECIFIED Status: Acute Comment: Improved, avoid nephrotoxic meds and limit contrast exposure, serial creatinine - Plan continue antibiotics, drug abuse social worker, respiratory therapy, DVT proph w/SCDs Continue critical support -: Mech ventilation with SIMV -: Add Vancomycin 1gm IV x 1 today then 1gm IV q48h -: PCXR in am -: AM lab: CMP, CBC, ABG * .
[2019-04-11] MEDS: Lorazepam 2 MG/ML VIAL SLOW IVP PRN (20:46)
[2019-04-11] MEDS ORDERED: guaiFENesin 200 MG TAB PER TUBE SCH (21:30)
[2019-04-12] MEDS: guaiFENesin 200 MG TAB PER TUBE SCH ×4 (02:04→20:24)
[2019-04-12] MEDS: Acetaminophen 650 MG/20.3 ML UDCUP PO PRN ×2 (02:04→09:28)
[2019-04-12] MEDS: Morphine 2 MG/ML SYRINGE SLOW IVP PRN ×2 (02:04→11:42)
[2019-04-12] MEDS: Lorazepam 2 MG/ML VIAL SLOW IVP PRN ×2 (04:04→20:24)
[2019-04-12] MEDS: Piperacillin/Tazobactam 3.375 GM in Sodium Chloride 0.9% 100 ML IVPB SCH ×3 (05:20→18:12)
[2019-04-12] MEDS: Furosemide 40 MG/4 ML VIAL SLOW IVP SCH ×2 (05:24→15:36)
[2019-04-12 06:45] LABS: Band 26 % (5-11); Hemoglobin 14.7 g/dL (14.0-18.0); Lymphocytes 8 % (21-51); MDiff Complete? YES; Mean Corpuscular HGB CONC 27.6 g/dL (32.0-36.0); Mean Corpuscular Hemoglobin 25.6 pg (27.0-31.0); Monocytes 5 % (0-10); Neutrophil 61 % (42-75); Platelet Count 147 thou/uL (130-400); Platelet Morphology Comment Appears Adequate; RBC Distribution Width 15.8 % (11.5-14.5); Red Blood Cell (RBC) Count 5.73 mill/uL (4.70-6.10); White Blood Cell (WBC) Count 7.7 thou/uL (4.8-10.8)
[2019-04-12 06:52] LABS: ALT (SGPT) 60 U/L (8-55); AST (SGOT) 113 U/L (5-34); Albumin 2.9 g/dL (3.5-5.0); Alkaline Phosphatase 49 U/L (40-150); Anion Gap 13 mmol/L (10-20); BUN (Urea Nitrogen) 61 mg/dL (8.4-25.7); Bilirubin, Total 0.6 mg/dL (0.2-1.2); Calc. Creatinine Clearance 90 mL/min (70-130); Calcium 9.4 mg/dL (7.8-10.44); Carbon Dioxide 31 mmol/L (22-29); Chloride 107 mmol/L (98-107); Estimated GFR-MDRD 41; Globulin 3.9 g/dL (2.4-3.5); Glucose 115 mg/dL (70-105); Potassium 4.1 mmol/L (3.5-5.1); Protein, Total 6.8 g/dL (6.0-8.3); Sodium 147 mmol/L (136-145)
[2019-04-12 07:29] LABS: Actual Bicarbonate (HCO3a) 31.1 mEq/L (22-28); Base Excess (BEa) 4.6 mEq/L (-2.0 to +3.0); CO2 Tension 52.4 mmHg (35.0-45.0); Carboxyhemoglobin (COHb) 1.9 gm% (0.0-3.0); Hemoglobin (Hb) 16.2 g/dL (14.0-18.0); pH, Arterial 7.39 (7.35-7.45)
[2019-04-12 07:34] LABS: O2 Tension (PaO2) 52.5 mmHg (80.0-100.0); Puncture Site L.R.
--- NOTE | 2019-04-12 08:15 | PDOC.CTH ---
Cardiology Progress Note - Subjective No significant changes noted overnight. propofol has been DC. Pr on precedex - Objective Vital Signs Temp Pulse Resp Pulse Ox 04/12/19 08:00 21 H 04/12/19 07:13 87 04/12/19 07:12 85 22 H 91 L 04/12/19 06:00 24 H 04/12/19 04:00 15 04/12/19 02:34 83 04/12/19 02:00 18 04/12/19 00:04 75 17 95 04/11/19 22:32 76 04/11/19 22:00 101.3 F H 17 Admit Weight 319 lb 10.7 oz Weight 302 lb 0.533 oz 04/11/19 04/12/19 04/13/19 06:59 06:59 06:59 Intake Total 2485 3039 Output Total 4515 4125 600 Balance -1367 -1630 -437 - Physical Examination General/Neuro: NAD, other: (I/S) Neck: no JVD present Lungs: CTA, unlabored respirations Heart: RRR Abdomen: NT/ND, soft Extremities: + femoral B - Labs Result Diagrams: 04/12/19 06:15 04/12/19 06:15 Troponin/CKMB CK-MB (CK-2) 5.5 ng/mL (0-6.6) 04/05/19 23:23 Troponin I 0.273 ng/mL (< 0.028) H 04/05/19 23:23 - Assessment/Plan Respiratory failure Obesity CHF COPD OLENA DVT No significant changes noted overnight. Vent management per pulmonary Lovenox Abx
[2019-04-12] MEDS: Famotidine 40 MG/5 ML Oral Suspension PER TUBE SCH (09:19)
[2019-04-12] MEDS: Aspirin Chewable 81 MG TAB PO SCH (09:19)
[2019-04-12] MEDS: Enoxaparin Sodium 120 MG/0.8 ML SYRINGE SC SCH ×2 (09:20→20:24)
[2019-04-12] MEDS: guaiFENesin ER 600 MG TAB PO SCH (09:20)
--- NOTE | 2019-04-12 09:50 | PRG ---
DATE OF SERVICE: 04/12/2019 35 minutes critical care time. SUBJECTIVE: The patient remains intubated on mechanical ventilation. There has been no acute changes overnight. The nurse showed me an area of skin in the left upper arm where a midline was placed that has some redness and blistering around the midline site. The patient has also intermittently been having fevers. OBJECTIVE: VITAL SIGNS: On physical exam, his temperature is 101.1, pulse 80, and blood pressure 130/78. 24-hour intake 3039, output 4125. Weight 302 pounds. GENERAL: He is currently sedated on Precedex. He will open his eyes, but does not follow any commands for me specifically. HEENT: Pupils react. Sclerae anicteric. Oropharynx clear. NECK: No adenopathy or JVD. LUNGS: Coarse breath sounds throughout bilaterally. CARDIAC: S1, S2. Regular. ABDOMEN: Morbidly obese, soft, nontender. EXTREMITIES: No overt edema. He had the skin changes noted in the left upper arm. LABORATORY DATA: Sodium 147, potassium 4.1, chloride 107, CO2 of 31, BUN 61, creatinine 1.7, glucose 115, AST 113, ALT 60. White blood cell count 7.7, hematocrit 53, platelet count 147. ABG: PH of 7.39, pCO2 of 52, pO2 of 52, that was on pressure control ventilation with inspiratory pressure of 11, inspiratory time 2 seconds, PEEP of 8, FiO2 of 50%. His x-ray shows some clearing compared to previous. ASSESSMENT: 1. Acute respiratory failure requiring mechanical ventilation. 2. Chronic obstructive pulmonary disease with mucus plugging. 3. Volume overload from diastolic cardiac dysfunction. 4. History of obstructive sleep apnea, noncompliant with CPAP. 5. Possible left upper arm cellulitis. 6. Clot in the femoral vein adjacent to a catheter. PLAN: 1. I have decreased his inspiratory time on the ventilator to give him a longer exhalation time. 2. Continue aggressive diuresis for 1 more day and then consider backing down given that his sodium is increasing. 3. Try to minimize sedation as much as possible. 4. In terms of the fever, I would go ahead and follow up the cultures that were drawn yesterday and adjust antibiotics accordingly. I would not add anything new at this time. Job ID: [id number]
--- NOTE | 2019-04-12 10:03 | RAD ---
CHEST 1 VIEW: Date: 04/12/19 INDICATION: Daily CCU examination. COMPARISON: Prior exam dated 04/11/19. FINDINGS: There is cardiomegaly, pulmonary vascular congestion, and small bilateral pleural effusions. The alis ent is intubated with associated gastric catheter placement. No pneumothorax is evident. IMPRESSION: 1. Cardiomegaly, pulmonary vascular congestion, central edema pattern, and bilateral pleural effusio ns suggest volume overload or CHF. 2. Stable ET tube and gastric catheter. POS: [facility]
--- NOTE | 2019-04-12 17:15 | PDOC.PN ---
- Subjective Encounter Start Date: 04/12/19 Encounter Start Time: 15:00 Subjective: f/u for resp failure on mech vent due to COPD/PNA. Remains sedate -: after adjustment to current meds. - Objective MAR Reviewed: Yes Vital Signs & Weight: Vital Signs (12 hours) Pulse Resp BP Pulse Ox 04/12/19 16:06 74 110/62 04/12/19 16:00 21 H 04/12/19 14:00 18 04/12/19 13:41 73 106/69 04/12/19 13:40 73 21 H 95 04/12/19 12:00 17 04/12/19 10:51 87 157/81 H 04/12/19 10:00 15 04/12/19 08:40 91 L 04/12/19 08:00 21 H 04/12/19 07:13 87 04/12/19 07:12 85 22 H 91 L 04/12/19 06:00 24 H Weight Admit Weight 319 lb 10.7 oz Weight 302 lb 0.533 oz Most Recent Monitor Data Heart Rate from ECG 74 NIBP 110/62 NIBP BP-Mean 78 Respiration from ECG 23 SpO2 94 I&O: 04/11/19 04/12/19 04/13/19 06:59 06:59 06:59 Intake Total 2485 3039 100 Output Total 4553 5761 0956 [facility]8589 -8431 -1926 Result Diagrams: 04/12/19 06:15 04/12/19 06:15 Additional Labs: Microbiology 04/07/19 07:50 Bronchial Washing Respiratory Culture - Final 04/05/19 19:29 Urine andrew catheter Urine Culture - Final NO GROWTH AT 36 HOURS 04/05/19 19:22 Venous blood - Left Hand Blood Culture - Final NO GROWTH IN 5 DAYS 04/05/19 19:15 Venous blood - Right Hand Blood Culture - Final NO GROWTH IN 5 DAYS Laboratory Tests 04/05/19 04/05/19 04/05/19 18:40 18:40 18:40 WBC 14.7 H Hgb 18.3 H Creatinine 2.50 H AST 94 H Ammonia B-Natriuretic Peptide 2036.6 H TSH 3rd Generation Cortisol Vancomycin Trough Plasma Alcohol 04/05/19 04/05/19 04/05/19 18:40 18:40 19:15 WBC Hgb Creatinine AST Ammonia 84 H B-Natriuretic Peptide TSH 3rd Generation 5.7125 H Cortisol Vancomycin Trough Plasma Alcohol Less than 10 04/05/19 04/06/19 04/06/19 23:23 03:30 03:30 WBC 12.4 H Hgb 16.6 Creatinine 2.57 H 2.53 H AST 105 H Ammonia B-Natriuretic Peptide TSH 3rd Generation Cortisol Vancomycin Trough Plasma Alcohol 04/06/19 04/06/19 04/07/19 03:30 03:30 03:30 WBC Hgb Creatinine AST 82 H Ammonia 34 B-Natriuretic Peptide TSH 3rd Generation Cortisol 16.70 Vancomycin Trough Plasma Alcohol 04/07/19 21:02 WBC Hgb Creatinine AST Ammonia B-Natriuretic Peptide TSH 3rd Generation Cortisol Vancomycin Trough 13.9 Plasma Alcohol Radiology Reviewed by me: Yes (PCXR - pulm edema bilat, ETT in place) EKG Reviewed by me: Yes (Tele - SR) Phys Exam - Physical Examination opens eyes briefly ETT in place HEENT: PERRLA, sclera anicteric, oral pharynx no lesions Neck: no nodes, no JVD, supple, full ROM diminished with scattered coarse sounds S1, S2 Cardiovascular: RRR, no significant murmur, no rub, gallop obese Gastrointestinal: soft, no distention, positive bowel sounds Musculoskeletal: pulses present, edema present Neurological: moves all 4 limbs Skin: normal turgor, cap refill <2 seconds Deviation from normal: Andrew with dark, jami urine Dx/Plan (1) Acute respiratory failure with hypoxia and hypercapnia Code(s): J96.01 - ACUTE RESPIRATORY FAILURE WITH HYPOXIA; J96.02 - ACUTE RESPIRATORY FAILURE WITH HYPERCAPNIA Status: Acute Comment: Likely due to # 2 and COPD, continue mech vent with SIMV, serial PCXR, ABG's, s/p L main bronchus evacuation of mucus plug (2) Atelectasis of left lung Code(s): J98.11 - ATELECTASIS Status: Acute Comment: See above, improving aeration (3) Acute diastolic heart failure, NYHA class 3 Code(s): I50.31 - ACUTE DIASTOLIC (CONGESTIVE) HEART FAILURE Status: Acute Comment: continue IV furosemide 40 mg BID, serial weights and I/O's (4) Pneumonia Code(s): J18.9 - PNEUMONIA, UNSPECIFIED ORGANISM Status: Acute Qualifiers: Laterality: left Comment: continue IV Zosyn, Vancomycin added, Duonebs, repeat blood cx today (5) Morbid obesity Code(s): E66.01 - MORBID (SEVERE) OBESITY DUE TO EXCESS CALORIES Status: Chronic Comment: Weight loss resources (6) TASHIA (acute kidney injury) Code(s): N17.9 - ACUTE KIDNEY FAILURE, UNSPECIFIED Status: Acute Comment: Improved, avoid nephrotoxic meds and limit contrast exposure, serial creatinine - Plan continue antibiotics, PT/OT, social scientist, respiratory therapy, DVT proph w/ SCDs Continue critical support -: Continue Zosyn/Vancomycin -: continue mech ventilation -: Continue Lovenox -: Continue Lasix 40mg IV BID * AM lab: CMP, CBC, ABG
[2019-04-13] MEDS: Piperacillin/Tazobactam 3.375 GM in Sodium Chloride 0.9% 100 ML IVPB SCH ×4 (00:31→17:01)
[2019-04-13] MEDS: Lorazepam 2 MG/ML VIAL SLOW IVP PRN ×3 (01:52→22:32)
[2019-04-13] MEDS: guaiFENesin 200 MG TAB PER TUBE SCH ×4 (03:46→21:43)
[2019-04-13 05:09] LABS: ALT (SGPT) 50 U/L (8-55); AST (SGOT) 78 U/L (5-34); Albumin 2.9 g/dL (3.5-5.0); Alkaline Phosphatase 44 U/L (40-150); Anion Gap 14 mmol/L (10-20); BUN (Urea Nitrogen) 66 mg/dL (8.4-25.7); Bilirubin, Total 0.5 mg/dL (0.2-1.2); Calc. Creatinine Clearance 84 mL/min (70-130); Calcium 9.6 mg/dL (7.8-10.44); Carbon Dioxide 31 mmol/L (22-29); Chloride 108 mmol/L (98-107); Estimated GFR-MDRD 38; Globulin 3.8 g/dL (2.4-3.5); Glucose 104 mg/dL (70-105); Potassium 3.8 mmol/L (3.5-5.1); Protein, Total 6.7 g/dL (6.0-8.3); Sodium 149 mmol/L (136-145)
[2019-04-13 05:31] LABS: Band 9 % (5-11); Eosinophils 3 % (0-10); Hemoglobin 14.7 g/dL (14.0-18.0); Lymphocytes 13 % (21-51); MDiff Complete? YES; Mean Corpuscular HGB CONC 33.8 g/dL (32.0-36.0); Mean Corpuscular Hemoglobin 31.1 pg (27.0-31.0); Mean Platelet Volume 9.5 fL (7.4-10.4); Monocytes 3 % (0-10); Neutrophil 71 % (42-75); Platelet Count 146 thou/uL (130-400); Platelet Morphology Comment Appears Adequate; RBC Distribution Width 15.3 % (11.5-14.5); RBC Morphology Normal; Reactive Lymphocytes 1 % (0-10); Red Blood Cell (RBC) Count 4.72 mill/uL (4.70-6.10); White Blood Cell (WBC) Count 7.5 thou/uL (4.8-10.8)
[2019-04-13] MEDS: Furosemide 40 MG/4 ML VIAL SLOW IVP SCH (05:59)
[2019-04-13 07:57] LABS: Actual Bicarbonate (HCO3a) 30.5 mEq/L (22-28); Base Excess (BEa) 4.4 mEq/L (-2.0 to +3.0); Calcium, Ionized 1.21 mmol/L (1.12-1.30); Hemoglobin (Hb) 15.5 g/dL (14.0-18.0); Potassium - ABG Lab 3.89 mmol/L (3.70-5.30)
[2019-04-13 08:03] LABS: O2 Tension (PaO2) 54.5 mmHg (80.0-100.0); Puncture Site L.R.
[2019-04-13] MEDS: Aspirin Chewable 81 MG TAB PO SCH (08:23)
[2019-04-13] MEDS: Famotidine 40 MG/5 ML Oral Suspension PER TUBE SCH (08:23)
--- NOTE | 2019-04-13 09:37 | PRG ---
DATE OF SERVICE: 04/13/2019 TIME SPENT: 35 minutes of critical care time. SUBJECTIVE: The patient remains intubated on mechanical ventilation. No acute changes overnight. OBJECTIVE: VITAL SIGNS: His temperature is 100.0 With a T-max of 100.6, pulse 85, and blood pressure 99/66. A 24-hour intake 3246, output 4135. Weight 289 pounds. HEENT: Slightly plethoric. Oropharyngeal endotracheal tube in place. NECK: No adenopathy or JVD. LUNGS: Clear anteriorly with generalized overall poor air movement. CARDIAC: S1 and S2. Regular. ABDOMEN: Soft and nontender to palpation. EXTREMITIES: Chronic stasis throughout. LABORATORY DATA: Sodium 149, potassium 3.8, chloride 108, CO2 of 31, BUN 66, creatinine 1.8, and glucose 104. White blood cell count 7.5, hematocrit 43.4, and platelet count 146. PH 7.40, pCO2 of 51, pO2 of 54, and that is on inspiratory pressure of 15, rate 8, FiO2 of 50%, PEEP 8. IMAGING STUDIES: Chest x-ray was not done. ASSESSMENT: 1. Acute respiratory failure requiring mechanical ventilation. 2. Chronic obstructive pulmonary disease with mucus plugging. 3. Volume overload with diastolic cardiac dysfunction. 4. History of obstructive sleep apnea, noncompliant with CPAP. 5. Left upper arm cellulitis. PLAN: At this point, I do not think the patient is weanable. I have stopped his diuretics as he is starting to get dry and that is starting to affect his blood pressure somewhat. We will continue the IV antibiotics. The patient is likely facing the prospect of tracheostomy. Job ID: [id number]
--- NOTE | 2019-04-13 14:46 | PDOC.PN ---
- Subjective Encounter Start Date: 04/13/19 Encounter Start Time: 13:55 Subjective: f/u for resp failure on mech ventilation. No new issues reported. More -: awake. Remains on Zosyn/Vancomycin. - Objective MAR Reviewed: Yes Vital Signs & Weight: Vital Signs (12 hours) Temp Pulse Resp BP Pulse Ox 04/13/19 13:59 81 110/75 04/13/19 13:58 81 31 H 92 L 04/13/19 12:00 24 H 94 L 04/13/19 11:06 72 97/68 04/13/19 10:00 99.0 F 20 04/13/19 08:00 18 93 L 04/13/19 07:26 86 96/60 04/13/19 07:25 86 22 H 92 L 04/13/19 06:00 26 H 04/13/19 04:00 16 Weight Admit Weight 319 lb 10.7 oz Weight 289 lb 7.471 oz Most Recent Monitor Data Heart Rate from ECG 76 NIBP 112/73 NIBP BP-Mean 86 Respiration from ECG 22 SpO2 93 I&O: 04/12/19 04/13/19 04/14/19 06:59 06:59 06:59 Intake Total 3039 3246 80 Output Total 4125 5364 5960 Balance -6861 -720 -5762 Result Diagrams: 04/13/19 03:55 04/13/19 03:55 Additional Labs: Microbiology 04/07/19 07:50 Bronchial Washing Respiratory Culture - Final 04/05/19 19:29 Urine andrew catheter Urine Culture - Final NO GROWTH AT 36 HOURS 04/05/19 19:22 Venous blood - Left Hand Blood Culture - Final NO GROWTH IN 5 DAYS 04/05/19 19:15 Venous blood - Right Hand Blood Culture - Final NO GROWTH IN 5 DAYS Laboratory Tests 04/05/19 04/05/19 04/05/19 18:40 18:40 18:40 WBC 14.7 H Hgb 18.3 H Creatinine 2.50 H AST 94 H Ammonia B-Natriuretic Peptide 2036.6 H TSH 3rd Generation Cortisol Vancomycin Trough Plasma Alcohol 04/05/19 04/05/19 04/05/19 18:40 18:40 19:15 WBC Hgb Creatinine AST Ammonia 84 H B-Natriuretic Peptide TSH 3rd Generation 5.7125 H Cortisol Vancomycin Trough Plasma Alcohol Less than 10 04/05/19 04/06/19 04/06/19 23:23 03:30 03:30 WBC 12.4 H Hgb 16.6 Creatinine 2.57 H 2.53 H AST 105 H Ammonia B-Natriuretic Peptide TSH 3rd Generation Cortisol Vancomycin Trough Plasma Alcohol 04/06/19 04/06/19 04/07/19 03:30 03:30 03:30 WBC Hgb Creatinine AST 82 H Ammonia 34 B-Natriuretic Peptide TSH 3rd Generation Cortisol 16.70 Vancomycin Trough Plasma Alcohol 04/07/19 21:02 WBC Hgb Creatinine AST Ammonia B-Natriuretic Peptide TSH 3rd Generation Cortisol Vancomycin Trough 13.9 Plasma Alcohol EKG Reviewed by me: Yes (Tele - SR) Phys Exam - Physical Examination sedate, opens eyes to tactile/verbal stimulation ETT in place HEENT: PERRLA, sclera anicteric, oral pharynx no lesions Neck: no nodes, no JVD, supple, full ROM diminished in bases Respiratory: no rhonchi S1, S2 Cardiovascular: RRR, no significant murmur, no rub, gallop obese Gastrointestinal: soft, non-tender, no distention, positive bowel sounds Musculoskeletal: pulses present, edema present opens eyes to name/tactile stimulation Neurological: normal sensation, moves all 4 limbs Skin: normal turgor, cap refill <2 seconds Deviation from normal: Andrew with jami urine Dx/Plan (1) Acute respiratory failure with hypoxia and hypercapnia Code(s): J96.01 - ACUTE RESPIRATORY FAILURE WITH HYPOXIA; J96.02 - ACUTE RESPIRATORY FAILURE WITH HYPERCAPNIA Status: Acute Comment: Likely due to # 2 and COPD, continue mech vent with SIMV, serial PCXR, ABG's, s/p L main bronchus evacuation of mucus plug, not weanable currently (2) Atelectasis of left lung Code(s): J98.11 - ATELECTASIS Status: Acute Comment: See above, improving aeration (3) Acute diastolic heart failure, NYHA class 3 Code(s): I50.31 - ACUTE DIASTOLIC (CONGESTIVE) HEART FAILURE Status: Acute Comment: 30lb weight loss since admit, serial weights and I/O's (4) Pneumonia Code(s): J18.9 - PNEUMONIA, UNSPECIFIED ORGANISM Status: Acute Qualifiers: Laterality: left Comment: continue IV Zosyn, Vancomycin added, Duonebs, repeat blood cx today (5) Morbid obesity Code(s): E66.01 - MORBID (SEVERE) OBESITY DUE TO EXCESS CALORIES Status: Chronic Comment: Weight loss resources (6) TASHIA (acute kidney injury) Code(s): N17.9 - ACUTE KIDNEY FAILURE, UNSPECIFIED Status: Acute Comment: Improved, avoid nephrotoxic meds and limit contrast exposure, serial creatinine - Plan continue antibiotics, social research assistant, respiratory therapy, DVT proph w/SCDs Continue mech ventilation, appears unweanable, ?trach -: Continue Vanc/Zosyn -: Lasix d/c'd due to dehydration, 30lb weight loss since admit -: Nutritional support with Vital HP @ 80ml/h -: AM lab: CMP, CBC, ABG * .
[2019-04-13] MEDS: Vancomycin HCl 1 GM in Premix Bag 1 BAG IVPB SCH (16:43)
[2019-04-13] MEDS: Enoxaparin Sodium 120 MG/0.8 ML SYRINGE SC SCH (21:42)
[2019-04-14] MEDS: Piperacillin/Tazobactam 3.375 GM in Sodium Chloride 0.9% 100 ML IVPB SCH ×4 (00:59→17:34)
[2019-04-14] MEDS: Lorazepam 2 MG/ML VIAL SLOW IVP PRN ×3 (01:46→15:52)
[2019-04-14] MEDS: guaiFENesin 200 MG TAB PER TUBE SCH ×4 (03:21→21:32)
[2019-04-14 06:55] LABS: Actual Bicarbonate (HCO3a) 30.5 mEq/L (22-28); Base Excess (BEa) 4.2 mEq/L (-2.0 to +3.0); CO2 Tension 52.3 mmHg (35.0-45.0); Calcium, Ionized 1.24 mmol/L (1.12-1.30); Carboxyhemoglobin (COHb) 1.9 gm% (0.0-3.0); Potassium - ABG Lab 4.03 mmol/L (3.70-5.30); pH, Arterial 7.38 (7.35-7.45)
[2019-04-14 06:56] LABS: O2 Tension (PaO2) 50.2 mmHg (80.0-100.0)
[2019-04-14 06:57] LABS: ALV-art Gradient 240.925 (0-20); Puncture Site LRA
[2019-04-14] MEDS: Morphine 2 MG/ML SYRINGE SLOW IVP PRN ×2 (07:24→14:54)
[2019-04-14] MEDS: Famotidine 40 MG/5 ML Oral Suspension PER TUBE SCH (09:02)
[2019-04-14] MEDS: Aspirin Chewable 81 MG TAB PO SCH (09:02)
[2019-04-14 09:39] LABS: ALT (SGPT) 47 U/L (8-55); AST (SGOT) 60 U/L (5-34); Alkaline Phosphatase 47 U/L (40-150); Anion Gap 14 mmol/L (10-20); BUN (Urea Nitrogen) 70 mg/dL (8.4-25.7); Bilirubin, Total 0.6 mg/dL (0.2-1.2); Calc. Creatinine Clearance 75 mL/min (70-130); Calcium 9.8 mg/dL (7.8-10.44); Carbon Dioxide 30 mmol/L (22-29); Chloride 110 mmol/L (98-107); Estimated GFR-MDRD 35; Globulin 4.2 g/dL (2.4-3.5); Glucose 100 mg/dL (70-105); Protein, Total 7.2 g/dL (6.0-8.3); Sodium 150 mmol/L (136-145)
--- NOTE | 2019-04-14 10:02 | PDOC.PN ---
- Subjective Encounter Start Date: 04/14/19 Encounter Start Time: 10:00 Subjective: intubated, sedated - Objective MAR Reviewed: Yes Vital Signs & Weight: Vital Signs (12 hours) Temp Pulse Resp BP Pulse Ox 04/14/19 07:00 100.6 F H 04/14/19 06:36 84 111/69 04/14/19 06:30 78 30 H 89 L 04/14/19 06:00 22 H 04/14/19 04:00 29 H 04/14/19 02:07 81 04/14/19 02:00 28 H 04/14/19 00:31 78 23 H 93 L 04/14/19 00:00 30 H 04/13/19 22:19 81 Weight Admit Weight 319 lb 10.7 oz Weight 290 lb 12.635 oz Most Recent Monitor Data Heart Rate from ECG 75 NIBP 102/65 NIBP BP-Mean 77 Respiration from ECG 28 SpO2 91 I&O: 04/13/19 04/14/19 04/15/19 06:59 06:59 06:59 Intake Total 3246 3521 Output Total 4135 3705 115 Balance -889 -184 -115 Result Diagrams: 04/13/19 03:55 04/14/19 04:58 Phys Exam - Physical Examination Neck: no JVD decreased breath sounds Cardiovascular: RRR, no significant murmur Gastrointestinal: soft, positive bowel sounds Musculoskeletal: no edema Dx/Plan (1) Hypernatremia Code(s): E87.0 - HYPEROSMOLALITY AND HYPERNATREMIA Status: Acute (2) Acute diastolic heart failure, NYHA class 3 Code(s): I50.31 - ACUTE DIASTOLIC (CONGESTIVE) HEART FAILURE Status: Acute Comment: 30lb weight loss since admit, serial weights and I/O's (3) Acute respiratory failure with hypoxia Code(s): J96.01 - ACUTE RESPIRATORY FAILURE WITH HYPOXIA Status: Acute Comment: secondary to pneumonia +/- CHF exacerbation (4) Atelectasis of left lung Code(s): J98.11 - ATELECTASIS Status: Acute Comment: See above, improving aeration (5) COPD exacerbation Code(s): J44.1 - CHRONIC OBSTRUCTIVE PULMONARY DISEASE W (ACUTE) EXACERBATION Status: Acute Comment: on nebs. (6) Mucus plugging of bronchi Code(s): J98.09 - OTHER DISEASES OF BRONCHUS, NOT ELSEWHERE CLASSIFIED Status : Acute Comment: Follow bronch Wash Cx-negative so far (7) Pneumonia Code(s): J18.9 - PNEUMONIA, UNSPECIFIED ORGANISM Status: Acute Qualifiers: Laterality: left Comment: continue IV Zosyn, Vancomycin added, Duonebs, repeat blood cx today - Plan needs increased free water -: cont vent, poss trach, etc -: cont iv antibx, discuss with journeyman painter * .
--- NOTE | 2019-04-14 10:04 | RAD ---
PORTABLE CHEST 1 VIEW: Date: 04/14/19 Time: 0449 hours HISTORY: Pneumonia. COMPARISON: 04/12/19. FINDINGS/IMPRESSION: Endotracheal and nasogastric tubes remain in place. The heart is enlarged. There is pulmonary vascula r congestion with small pleural effusions bilaterally. No pneumothorax is seen. There is atelectatic change versus consolidation at the left lung base. POS: OFF
[2019-04-14 11:11] LABS: Band 4 % (5-11); Eosinophils 2 % (0-10); Hemoglobin 14.9 g/dL (14.0-18.0); Lymphocytes 22 % (21-51); MDiff Complete? YES; Mean Corpuscular HGB CONC 29.5 g/dL (32.0-36.0); Mean Corpuscular Hemoglobin 27.4 pg (27.0-31.0); Mean Corpuscular Volume 92.9 fL (78.0-98.0); Mean Platelet Volume 9.9 fL (7.4-10.4); Monocytes 7 % (0-10); Neutrophil 65 % (42-75); Platelet Count 158 thou/uL (130-400); RBC Distribution Width 15.5 % (11.5-14.5); RBC Morphology Normal; Red Blood Cell (RBC) Count 5.42 mill/uL (4.70-6.10); White Blood Cell (WBC) Count 7.7 thou/uL (4.8-10.8)
[2019-04-14] MEDS: Sodium Chloride 0.45% 1,000 ML IV SCH (14:55)
--- NOTE | 2019-04-14 15:09 | PRG ---
DATE OF SERVICE: 04/14/2019 SUBJECTIVE: Mr. Mak remains mechanically ventilated. We turned his FiO2 from 60% to 50% OBJECTIVE: VITAL SIGNS: Heart rate is in the 80s, blood pressure is 94/63, respiratory rate is in the 20, oximetry is 92%. LUNGS: Distant and clear. HEART: Regular rhythm. ABDOMEN: Soft. EXTREMITIES: Without edema. LABORATORY DATA: White count 7.7, hemoglobin 14.9, platelets 158. Sodium 150, potassium 4, chloride 110, bicarb 30, BUN 70, creatinine 1.98. IMPRESSION: 1. Chronic obstructive pulmonary disease exacerbation with respiratory failure. 2. Diastolic heart failure. 3. Clot in his femoral vein around the catheter. He is currently anticoagulated. 4. Deconditioning. 5. Long-standing sleep apnea. 6. Ongoing gas exchange problems with no clear radiographic abnormalities other than small effusions. I suspect he will benefit from a tracheostomy. Plan is to discuss this with the when she has bedside. Job ID: [id number] MTDD
[2019-04-14] MEDS: Propofol 1,000 MG/100 ML VIAL IV PRN (16:21)
[2019-04-14] MEDS: Acetaminophen 650 MG/20.3 ML UDCUP PO PRN (17:34)
[2019-04-14] MEDS: Enoxaparin Sodium 120 MG/0.8 ML SYRINGE SC SCH (21:32)
[2019-04-15] MEDS: Piperacillin/Tazobactam 3.375 GM in Sodium Chloride 0.9% 100 ML IVPB SCH ×4 (00:19→17:55)
[2019-04-15] MEDS: Propofol 1,000 MG/100 ML VIAL IV PRN ×3 (00:19→19:15)
[2019-04-15] MEDS: guaiFENesin 200 MG TAB PER TUBE SCH ×4 (03:45→21:18)
[2019-04-15] MEDS: Sodium Chloride 0.45% 1,000 ML IV SCH ×2 (03:46→07:17)
[2019-04-15 05:48] LABS: Band 8 % (5-11); Hemoglobin 14.4 g/dL (14.0-18.0); Lymphocytes 7 % (21-51); MDiff Complete? YES; Mean Corpuscular HGB CONC 29.4 g/dL (32.0-36.0); Mean Corpuscular Hemoglobin 27.1 pg (27.0-31.0); Mean Corpuscular Volume 92.1 fL (78.0-98.0); Mean Platelet Volume 10.2 fL (7.4-10.4); Monocytes 3 % (0-10); Neutrophil 82 % (42-75); Platelet Count 188 thou/uL (130-400); Platelet Morphology Comment Appears Adequate; RBC Distribution Width 15.6 % (11.5-14.5); RBC Morphology Normal; Red Blood Cell (RBC) Count 5.33 mill/uL (4.70-6.10); White Blood Cell (WBC) Count 7.6 thou/uL (4.8-10.8)
[2019-04-15 05:52] LABS: ALT (SGPT) 42 U/L (8-55); AST (SGOT) 46 U/L (5-34); Albumin 2.9 g/dL (3.5-5.0); Alkaline Phosphatase 45 U/L (40-150); Anion Gap 11 mmol/L (10-20); Bilirubin, Total 0.5 mg/dL (0.2-1.2); Calc. Creatinine Clearance 73 mL/min (70-130); Calcium 9.5 mg/dL (7.8-10.44); Carbon Dioxide 30 mmol/L (22-29); Chloride 114 mmol/L (98-107); Estimated GFR-MDRD 34; Globulin 4.2 g/dL (2.4-3.5); Glucose 120 mg/dL (70-105); Potassium 4.4 mmol/L (3.5-5.1); Protein, Total 7.1 g/dL (6.0-8.3); Sodium 151 mmol/L (136-145)
[2019-04-15 05:57] LABS: BUN (Urea Nitrogen) 72 mg/dL (8.4-25.7)
[2019-04-15 07:05] LABS: Base Excess (BEa) 2.1 mEq/L (-2.0 to +3.0); CO2 Tension 48.6 mmHg (35.0-45.0); Calcium, Ionized 1.21 mmol/L (1.12-1.30); Carboxyhemoglobin (COHb) 1.4 gm% (0.0-3.0); Hemoglobin (Hb) 14.8 g/dL (14.0-18.0); O2 Tension (PaO2) 66.6 mmHg (80.0-100.0); Potassium - ABG Lab 4.31 mmol/L (3.70-5.30); pH, Arterial 7.38 (7.35-7.45)
[2019-04-15 07:10] LABS: Puncture Site LRA
[2019-04-15] MEDS: Aspirin Chewable 81 MG TAB PO SCH (09:13)
[2019-04-15] MEDS: Famotidine 40 MG/5 ML Oral Suspension PER TUBE SCH (09:13)
--- NOTE | 2019-04-15 09:47 | RAD ---
PORTABLE CHEST: HISTORY: Respiratory distress. COMPARISON: Prior day's study. FINDINGS: Heart size is enlarged. Parahilar and lower lobe lung markings are similar to the prior exam. Endot jason tube is in satisfactory position. The tip of the NG tube is difficult to visualize. IMPRESSION: Stable exam. POS: OFF
[2019-04-15] MEDS: Acetaminophen 650 MG/20.3 ML UDCUP PO PRN ×2 (10:21→21:21)
--- NOTE | 2019-04-15 10:37 | PDOC.PN ---
- Subjective Encounter Start Date: 04/15/19 Encounter Start Time: 10:35 Subjective: intubated, responds to verbal stimuli - Objective MAR Reviewed: Yes Vital Signs & Weight: Vital Signs (12 hours) Pulse Resp BP Pulse Ox 04/15/19 08:00 23 H 92 L 04/15/19 06:39 89 134/80 04/15/19 06:36 89 30 H 90 L 04/15/19 06:00 33 H 04/15/19 04:00 34 H 04/15/19 02:22 75 119/76 04/15/19 02:00 22 H 04/15/19 00:20 82 113/71 04/15/19 00:00 27 H Weight Admit Weight 319 lb 10.7 oz Weight 292 lb 5.327 oz Most Recent Monitor Data Heart Rate from ECG 93 NIBP 117/68 NIBP BP-Mean 84 Respiration from ECG 14 SpO2 91 I&O: 04/14/19 04/15/19 04/16/19 06:59 06:59 06:59 Intake Total 3521 4825.9 Output Total 3705 3115 690 Balance -184 1710.9 -690 Result Diagrams: 04/15/19 05:20 04/15/19 05:20 Radiology Reviewed by me: Yes (CXR- ET tube, bilat infiltrates) EKG Reviewed by me: No (ECHO- LVEF 60%) Phys Exam - Physical Examination Neck: no JVD coarse BS with rhonchi Cardiovascular: RRR, no significant murmur Gastrointestinal: soft, positive bowel sounds Musculoskeletal: no edema Dx/Plan (1) Hypernatremia Code(s): E87.0 - HYPEROSMOLALITY AND HYPERNATREMIA Status: Acute (2) Acute diastolic heart failure, NYHA class 3 Code(s): I50.31 - ACUTE DIASTOLIC (CONGESTIVE) HEART FAILURE Status: Acute Comment: 30lb weight loss since admit, serial weights and I/O's (3) Acute respiratory failure with hypoxia Code(s): J96.01 - ACUTE RESPIRATORY FAILURE WITH HYPOXIA Status: Acute Comment: secondary to pneumonia +/- CHF exacerbation (4) Atelectasis of left lung Code(s): J98.11 - ATELECTASIS Status: Acute Comment: See above, improving aeration (5) COPD exacerbation Code(s): J44.1 - CHRONIC OBSTRUCTIVE PULMONARY DISEASE W (ACUTE) EXACERBATION Status: Acute Comment: on nebs. (6) Mucus plugging of bronchi Code(s): J98.09 - OTHER DISEASES OF BRONCHUS, NOT ELSEWHERE CLASSIFIED Status : Acute Comment: Follow bronch Wash Cx-negative so far (7) Pneumonia Code(s): J18.9 - PNEUMONIA, UNSPECIFIED ORGANISM Status: Acute Qualifiers: Laterality: left Comment: continue IV Zosyn, Vancomycin added, Duonebs, repeat blood cx today (8) Acute renal failure Status: Acute Qualifiers: Acute renal failure type: unspecified Qualified Code(s): N17.9 - Acute kidney failure, unspecified - Plan increase free water in tube feedings and change in fluid to D5W -: discussed with Duty Engineer- will need trach -: cont iv antibx, nebs * .
[2019-04-15] MEDS: Dextrose 5% in Water 1,000 ML IV SCH (11:43)
--- NOTE | 2019-04-15 15:54 | PRG ---
DATE OF SERVICE: 04/15/2019 SUBJECTIVE: Ramin Mak will awake and interact with his . He equally moves all his extremities. OBJECTIVE: GENERAL: He is in no distress. VITAL SIGNS: Heart rate in the 60s, blood pressure 105/70, respiratory rate 20, oximetry is 92, turning back down from 60% to 50%. LUNGS: Clear. HEART: Regular rhythm. ABDOMEN: Soft. EXTREMITIES: No clubbing, cyanosis, or edema. LABORATORY DATA: White count 7.6, hemoglobin 14.4, platelets 188. Sodium 151, potassium 4.4, chloride 114, bicarb 30, BUN 72, creatinine 2.04. IMPRESSION: 1. Respiratory failure, acute on chronic. 2. Probable chronic obstructive pulmonary disease exacerbation. 3. Diastolic heart failure. 4. Prerenal azotemia. His IV fluids have been adjusted to increase free water which should lead to recovery of his renal insufficiency. 5. Clot in his femoral vein adjacent to a central line. Hold anticoagulants. I have explained to the family that I do not feel he will wean without a tracheostomy and likely would benefit from a PEG. Place General Surgery consult. His family is in agreement. I actually asked him if he was in agreement, he nods that he was. CRITICAL CARE TIME: 30 minutes. Job ID: [id number] MTDD
[2019-04-15] MEDS: Vancomycin HCl 1 GM in Premix Bag 1 BAG IVPB SCH (17:04)
[2019-04-15] MEDS ORDERED: Fentanyl BOLUS 250 ML IVPB PRN (22:39)
[2019-04-15] MEDS ORDERED: fentaNYL Citrate/PF 2,000 MCG in Sodium Chloride 0.9% 60 ML IV SCH (22:45)
[2019-04-16] MEDS: Propofol 1,000 MG/100 ML VIAL IV PRN ×4 (00:14→17:30)
[2019-04-16] MEDS: Piperacillin/Tazobactam 3.375 GM in Sodium Chloride 0.9% 100 ML IVPB SCH ×4 (00:14→17:22)
[2019-04-16] MEDS: Dextrose 5% in Water 1,000 ML IV SCH ×2 (00:43→17:22)
[2019-04-16] MEDS: Lorazepam 2 MG/ML VIAL SLOW IVP PRN (01:33)
--- NOTE | 2019-04-16 01:46 | CON ---
DATE OF CONSULTATION: CHIEF COMPLAINT: Inability to wean from ventilator. HISTORY OF PRESENT ILLNESS: This is a 59-year-old male, who was admitted on April 05 with a COPD exacerbation. Despite all efforts, they have been unable to wean him from the ventilator. I was asked to see him for consideration of tracheostomy and percutaneous endoscopic gastrostomy. PAST MEDICAL HISTORY: COPD, hypertension, morbid obesity, sleep apnea, hyperlipidemia, anxiety, gastroesophageal reflux. PAST SURGICAL HISTORY: Colonoscopy, EGD. ALLERGIES: NO KNOWN DRUG ALLERGIES. MEDICATIONS: 1. Aspirin. 2. Bisoprolol/hydrochlorothiazide. 3. Zoloft. SOCIAL HISTORY: He is . Smokes two pack per day. Social alcohol. FAMILY HISTORY: CVA. PHYSICAL EXAMINATION: VITAL SIGNS: He is afebrile, pulse 78, blood pressure 114/72. He is 89% saturating. Obese male, in no apparent distress. Sedated on the ventilator. He is currently receiving tube feedings. He is bearded. NECK: He has a fairly large obese neck. LUNGS: Hyper-resonant. ABDOMEN: Obese, soft, nondistended. EXTREMITIES: Unremarkable. LABORATORY DATA: His white count is 7.6, H and H of 14 and 49, platelet count 188. His PT is 15, INR 1.2. His sodium is 151, chloride 114, glucose 120. ASSESSMENT: Ventilatory dependency. PLAN: Tracheostomy. Job ID: [id number]
[2019-04-16] MEDS: guaiFENesin 200 MG TAB PER TUBE SCH ×4 (03:03→20:54)
[2019-04-16] MEDS: Acetaminophen 650 MG/20.3 ML UDCUP PO PRN (04:14)
[2019-04-16 05:26] LABS: ALT (SGPT) 38 U/L (8-55); AST (SGOT) 42 U/L (5-34); Albumin 2.9 g/dL (3.5-5.0); Alkaline Phosphatase 46 U/L (40-150); Anion Gap 14 mmol/L (10-20); BUN (Urea Nitrogen) 63 mg/dL (8.4-25.7); Bilirubin, Total 0.5 mg/dL (0.2-1.2); Calc. Creatinine Clearance 0 mL/min (70-130); Calcium 9.3 mg/dL (7.8-10.44); Carbon Dioxide 24 mmol/L (22-29); Chloride 114 mmol/L (98-107); Estimated GFR-MDRD 37; Globulin 4.3 g/dL (2.4-3.5); Glucose 108 mg/dL (70-105); Potassium 4.7 mmol/L (3.5-5.1); Protein, Total 7.2 g/dL (6.0-8.3); Sodium 147 mmol/L (136-145)
[2019-04-16 06:05] LABS: Band 6 % (5-11); Eosinophils 1 % (0-10); Hemoglobin 14.6 g/dL (14.0-18.0); Lymphocytes 16 % (21-51); MDiff Complete? YES; Mean Corpuscular HGB CONC 28.9 g/dL (32.0-36.0); Mean Corpuscular Hemoglobin 26.7 pg (27.0-31.0); Mean Corpuscular Volume 92.4 fL (78.0-98.0); Mean Platelet Volume 10.5 fL (7.4-10.4); Monocytes 2 % (0-10); Neutrophil 75 % (42-75); Platelet Count 173 thou/uL (130-400); Platelet Morphology Comment Appears Adequate; RBC Distribution Width 15.4 % (11.5-14.5); Red Blood Cell (RBC) Count 5.47 mill/uL (4.70-6.10); White Blood Cell (WBC) Count 7.3 thou/uL (4.8-10.8)
[2019-04-16 07:30] LABS: Actual Bicarbonate (HCO3a) 26.2 mEq/L (22-28); Base Excess (BEa) -0.8 mEq/L (-2.0 to +3.0); CO2 Tension 52.1 mmHg (35.0-45.0); Calcium, Ionized 1.23 mmol/L (1.12-1.30); Carboxyhemoglobin (COHb) 1.8 gm% (0.0-3.0); Hemoglobin (Hb) 14.9 g/dL (14.0-18.0); pH, Arterial 7.32 (7.35-7.45)
[2019-04-16 07:31] LABS: O2 Tension (PaO2) 53.9 mmHg (80.0-100.0)
[2019-04-16 07:32] LABS: Puncture Site LR
[2019-04-16 07:34] LABS: ALV-art Gradient 237.475 (0-20)
--- NOTE | 2019-04-16 08:00 | RAD ---
Chest AP view INDICATION: Pneumonia COMPARISON: April 15, 2019 FINDINGS: Tubes and Lines: Stable. Lungs:Hazy perihilar opacities are stable. Cardiac silhouette pulmonary vasculature:Moderate pulmonary vascular congestion and cardiomegaly are stable. Pleural spaces: Small bilateral pleural effusions persist. No pneumothorax is evident. Upper abdomen:No abnormality seen. Osseous structures: No acute abnormality. IMPRESSION: Stable exam.
--- NOTE | 2019-04-16 10:11 | PDOC.PN ---
- Subjective Encounter Start Date: 04/16/19 Encounter Start Time: 10:09 Subjective: intubated,sedated - Objective MAR Reviewed: Yes Vital Signs & Weight: Vital Signs (12 hours) Temp Pulse Resp BP Pulse Ox 04/16/19 08:00 38 H 88 L 04/16/19 07:13 78 39 H 88 L 04/16/19 07:10 78 108/66 04/16/19 07:00 100.6 F H 04/16/19 06:00 26 H 04/16/19 04:00 25 H 04/16/19 02:16 75 117/70 04/16/19 02:00 28 H 04/16/19 00:02 77 127/78 04/16/19 00:00 34 H 04/15/19 22:14 74 130/73 Weight Admit Weight 319 lb 10.7 oz Weight 4.73 oz Most Recent Monitor Data Heart Rate from ECG 71 NIBP 108/66 NIBP BP-Mean 80 Respiration from ECG 28 SpO2 88 I&O: 04/15/19 04/16/19 04/17/19 06:59 06:59 06:59 Intake Total 4825.9 4548 Output Total 3115 4115 120 Balance 1710.9 433 -120 Result Diagrams: 04/16/19 04:37 04/16/19 04:37 Phys Exam - Physical Examination Neck: no JVD coarse BS Cardiovascular: RRR, no significant murmur Gastrointestinal: soft, positive bowel sounds Musculoskeletal: no edema Dx/Plan (1) Hypernatremia Code(s): E87.0 - HYPEROSMOLALITY AND HYPERNATREMIA Status: Acute (2) Acute diastolic heart failure, NYHA class 3 Code(s): I50.31 - ACUTE DIASTOLIC (CONGESTIVE) HEART FAILURE Status: Acute Comment: 30lb weight loss since admit, serial weights and I/O's (3) Acute respiratory failure with hypoxia Code(s): J96.01 - ACUTE RESPIRATORY FAILURE WITH HYPOXIA Status: Acute Comment: secondary to pneumonia +/- CHF exacerbation (4) Atelectasis of left lung Code(s): J98.11 - ATELECTASIS Status: Acute Comment: See above, improving aeration (5) COPD exacerbation Code(s): J44.1 - CHRONIC OBSTRUCTIVE PULMONARY DISEASE W (ACUTE) EXACERBATION Status: Acute Comment: on nebs. (6) Mucus plugging of bronchi Code(s): J98.09 - OTHER DISEASES OF BRONCHUS, NOT ELSEWHERE CLASSIFIED Status : Acute Comment: Follow bronch Wash Cx-negative so far (7) Pneumonia Code(s): J18.9 - PNEUMONIA, UNSPECIFIED ORGANISM Status: Acute Qualifiers: Laterality: left Comment: continue IV Zosyn, Vancomycin added, Duonebs, repeat blood cx today (8) Acute renal failure Status: Acute Qualifiers: Acute renal failure type: unspecified Qualified Code(s): N17.9 - Acute kidney failure, unspecified - Plan trach/peg today -: cont iv fluids/tube feedings -: cont broad spectrum antibx -: Na and creat slightly improved with increased free water and icreased fluid -: intake * .
[2019-04-16] MEDS: Aspirin Chewable 81 MG TAB PO SCH (11:10)
[2019-04-16] MEDS: Famotidine 40 MG/5 ML Oral Suspension PER TUBE SCH (11:10)
[2019-04-16] MEDS ORDERED: Rocuronium Bromide 10 MG/ML (10ML VIAL) ONE (11:45)
[2019-04-16] MEDS ORDERED: Fentanyl 100 MCG/2 ML VIAL ONE (12:34)
[2019-04-16] MEDS ORDERED: Midazolam HCl 2 mg/2 ml Vial ONE (12:35)
[2019-04-16] MEDS ORDERED: Bupivacaine/Epinephrine 0.25% 30 ML VIAL ONE (12:37)
[2019-04-16] MEDS: Morphine 2 MG/ML SYRINGE SLOW IVP PRN (20:53)
--- NOTE | 2019-04-16 21:00 | PRG ---
DATE OF SERVICE: 04/16/2019 SUBJECTIVE: Mr. Mak is tentatively on schedule for tracheostomy today. He is stable overnight. OBJECTIVE: VITAL SIGNS: His vital signs throughout the day were stable. This evening blood pressure is 144/85, heart rate in the 60s, oximetry is 91%, and he is afebrile. HEAD AND NECK: Unchanged. LUNGS: Distant clear. HEART: Regular rhythm. ABDOMEN: Soft. EXTREMITIES: Without asymmetry or edema. He is sedated for ventilation. LABORATORY DATA: White count 7.3, hemoglobin 14.6, platelets 173. Sodium 147, potassium 4.7, chloride 114, bicarb 24, BUN 63, creatinine 1.86, albumin is 2.9, and globulin 4.3. IMPRESSION: 1. Respiratory failure, acute on chronic. 2. Chronic obstructive pulmonary disease exacerbation. 3. Diastolic heart failure. 4. Prerenal azotemia, that is iatrogenic and improving. 5. Clot in his femoral vein. We will restart him on once a day Lovenox tomorrow. I doubt he had thromboembolic disease, but this can be ruled out. We will continue to follow. We will more aggressively begin attempts at T-collar trials tomorrow. Lungs, gas exchange tolerates for removal of positive pressure. He appears to be stable post tracheostomy and PEG. CRITICAL CARE TIME: 30 minutes. Job ID: [id number]
[2019-04-17] MEDS: Piperacillin/Tazobactam 3.375 GM in Sodium Chloride 0.9% 100 ML IVPB SCH ×5 (00:04→23:48)
[2019-04-17] MEDS: Morphine 2 MG/ML SYRINGE SLOW IVP PRN (00:04)
[2019-04-17] MEDS: Propofol 1,000 MG/100 ML VIAL IV PRN ×2 (01:02→06:43)
[2019-04-17] MEDS: Dextrose 5% in Water 1,000 ML IV SCH ×2 (02:45→18:06)
[2019-04-17] MEDS: guaiFENesin 200 MG TAB PER TUBE SCH ×4 (02:49→20:49)
[2019-04-17 03:56] LABS: Band 11 % (5-11); Hemoglobin 13.8 g/dL (14.0-18.0); Lymphocytes 6 % (21-51); MDiff Complete? YES; Mean Corpuscular HGB CONC 29.5 g/dL (32.0-36.0); Mean Corpuscular Hemoglobin 27.2 pg (27.0-31.0); Monocytes 3 % (0-10); Neutrophil 80 % (42-75); Platelet Count 231 thou/uL (130-400); Platelet Morphology Comment Appears Adequate; RBC Distribution Width 15.4 % (11.5-14.5); RBC Morphology Normal; Red Blood Cell (RBC) Count 5.06 mill/uL (4.70-6.10); White Blood Cell (WBC) Count 7.8 thou/uL (4.8-10.8)
[2019-04-17 04:07] LABS: ALT (SGPT) 34 U/L (8-55); AST (SGOT) 51 U/L (5-34); Albumin 2.8 g/dL (3.5-5.0); Alkaline Phosphatase 48 U/L (40-150); Anion Gap 13 mmol/L (10-20); BUN (Urea Nitrogen) 58 mg/dL (8.4-25.7); Bilirubin, Total 0.5 mg/dL (0.2-1.2); Calc. Creatinine Clearance 78 mL/min (70-130); Carbon Dioxide 25 mmol/L (22-29); Chloride 113 mmol/L (98-107); Estimated GFR-MDRD 36; Globulin 4.3 g/dL (2.4-3.5); Glucose 105 mg/dL (70-105); Potassium 4.3 mmol/L (3.5-5.1); Protein, Total 7.1 g/dL (6.0-8.3); Sodium 147 mmol/L (136-145)
[2019-04-17] MEDS: Acetaminophen 650 MG/20.3 ML UDCUP PO PRN (05:53)
--- NOTE | 2019-04-17 07:44 | RAD ---
Portable frontal chest radiograph: 04/17/2019 COMPARISON: 04/16/2019 HISTORY: Pneumonia FINDINGS: Stable prominence of the cardiac silhouette. Stable bibasilar airspace disease with probabl e small stable bilateral pleural effusions. Stable endotracheal tube. Asymmetric increased density noted in the left suprahilar region as well. IMPRESSION: Stable pleural and parenchymal opacity in the lung bases suggesting edema and/or infectio us pneumonitis/aspiration.
[2019-04-17 08:13] LABS: Actual Bicarbonate (HCO3a) 23.1 mEq/L (22-28); Analyzer IN Cardio OR; Base Excess (BEa) -2.2 mEq/L (-2.0 to +3.0); Calcium, Ionized 1.16 mmol/L (1.12-1.30); Carboxyhemoglobin (COHb) 1.7 gm% (0.0-3.0); Hemoglobin (Hb) 14.1 g/dL (14.0-18.0); Potassium - ABG Lab 4.08 mmol/L (3.70-5.30); pH, Arterial 7.36 (7.35-7.45)
[2019-04-17 08:43] LABS: O2 Tension (PaO2) 59.2 mmHg (80.0-100.0); Puncture Site LR
--- NOTE | 2019-04-17 09:27 | PDOC.PN ---
- Subjective Encounter Start Date: 04/17/19 Encounter Start Time: 09:25 Subjective: post racheostomy, on c collar - Objective MAR Reviewed: Yes Vital Signs & Weight: Vital Signs (12 hours) Pulse Resp BP Pulse Ox 04/17/19 07:55 96 116/64 04/17/19 07:53 80 21 H 96 04/17/19 06:00 32 H 04/17/19 04:00 27 H 04/17/19 02:34 88 127/74 04/17/19 02:00 19 04/17/19 00:21 87 124/77 04/17/19 00:00 20 04/16/19 22:19 67 119/67 04/16/19 22:00 21 H Weight Admit Weight 319 lb 10.7 oz Weight 292 lb 15.909 oz Most Recent Monitor Data Heart Rate from ECG 81 NIBP 129/86 NIBP BP-Mean 100 Respiration from ECG 23 SpO2 95 I&O: 04/16/19 04/17/19 04/18/19 06:59 06:59 06:59 Intake Total 4548 2819 Output Total 9902 9836 370 Balance 433 -566 -370 Result Diagrams: 04/17/19 03:30 04/17/19 03:30 Radiology Reviewed by me: Yes (cxr- stable infiltrates, trach) Phys Exam - Physical Examination Neck: no JVD coarse BS Cardiovascular: RRR, no significant murmur Gastrointestinal: soft, positive bowel sounds Musculoskeletal: no edema Dx/Plan (1) Hypernatremia Code(s): E87.0 - HYPEROSMOLALITY AND HYPERNATREMIA Status: Acute (2) Acute diastolic heart failure, NYHA class 3 Code(s): I50.31 - ACUTE DIASTOLIC (CONGESTIVE) HEART FAILURE Status: Acute Comment: 30lb weight loss since admit, serial weights and I/O's (3) Acute respiratory failure with hypoxia Code(s): J96.01 - ACUTE RESPIRATORY FAILURE WITH HYPOXIA Status: Acute Comment: secondary to pneumonia +/- CHF exacerbation (4) Atelectasis of left lung Code(s): J98.11 - ATELECTASIS Status: Acute Comment: See above, improving aeration (5) COPD exacerbation Code(s): J44.1 - CHRONIC OBSTRUCTIVE PULMONARY DISEASE W (ACUTE) EXACERBATION Status: Acute Comment: on nebs. (6) Mucus plugging of bronchi Code(s): J98.09 - OTHER DISEASES OF BRONCHUS, NOT ELSEWHERE CLASSIFIED Status : Acute Comment: Follow bronch Wash Cx-negative so far (7) Pneumonia Code(s): J18.9 - PNEUMONIA, UNSPECIFIED ORGANISM Status: Acute Qualifiers: Laterality: left Comment: continue IV Zosyn, Vancomycin added, Duonebs, repeat blood cx today (8) Acute renal failure Status: Acute Qualifiers: Acute renal failure type: unspecified Qualified Code(s): N17.9 - Acute kidney failure, unspecified - Plan post trach/PEG -: cont tube feedings, antibx, nebs -: hypernatremia, cont free water. difficcult , reluctant to increase fluids -: cont to monitor renal fcn, lytes * .
[2019-04-17] MEDS: Aspirin Chewable 81 MG TAB PO SCH (09:28)
[2019-04-17] MEDS: Enoxaparin Sodium 120 MG/0.8 ML SYRINGE SC SCH ×2 (09:28→20:49)
--- NOTE | 2019-04-17 09:52 | OP ---
DATE OF PROCEDURE: 04/16/2019 PREOPERATIVE DIAGNOSIS: Ventilatory dependency. PROCEDURES PERFORMED: Percutaneous endoscopic gastrostomy, tracheostomy placement. INDICATIONS: A 59-year-old male, who has severe COPD due to heavy smoking. They were unable to extubate him or weaning from the ventilator over the last nearly 2 weeks or 10 days. FINDINGS: #8 extended length cuffed trach was inserted. PEG tube in the left upper quadrant. DESCRIPTION OF PROCEDURE: After informed consent was obtained, the patient was taken to the operating room, given general endotracheal anesthesia, placed in the supine position. The video endoscope was inserted under direct vision and advanced into the esophagus and stomach under direct vision. The stomach was insufflated with air maximally. The abdomen was compressed and a site was seen in the left upper quadrant subcostal. The introducer needle was inserted under direct vision and visualized intragastric. The J-wire was then inserted and grasped with a snare, brought out through the mouth. This was then connected to the PEG tube, which was brought retrograde through the mouth and through the stomach and through the skin after the skin was incised with 11 blade. Then, the flange was inserted over the tube to secure to the abdominal wall. The endoscope was reinserted and directed into the stomach. Stomach insufflated with air. Positioning was good. No bleeding. The cap was then placed on the PEG tube and a sterile bandage. Then, his neck was prepped and draped in usual fashion, local anesthesia with 0.5% Marcaine. A transverse incision performed 2 cm above the sternal notch. The subcu was divided with electrocautery. The strap muscles were divided in the midline and retracted laterally. The tracheal ring was isolated with 2 Prolene sutures placed either side of midline. Midline incised with 11 blade, further extended and dilated with the tracheal tail end rider. The existing endotracheal tube was visualized. It was coming out and #8 eight cuffed tube was inserted under direct vision. The cuffed tube was then inflated and connected to the ventilator. There was good CO2 return and they were able to oxygenate the patient. Then, sterile bandage was applied as well as the trach collar. The patient tolerated the procedure well, transferred to ICU in serious, but stable condition. Job ID: [id number]
[2019-04-17] MEDS: Famotidine 40 MG/5 ML Oral Suspension PER TUBE SCH (10:43)
[2019-04-17] MEDS ORDERED: Haloperidol Lactate 5 MG/ML VIAL ONE (15:41)
[2019-04-17] MEDS: Haloperidol Lactate 5 MG/ML VIAL IM PRN ×3 (15:48→23:48)
--- NOTE | 2019-04-17 16:42 | PRG ---
DATE OF SERVICE: 04/17/2019 SUBJECTIVE: Mr. Mak is doing well. He has no complaints, but he does not appear to be entirely lucid. He will make eye contact. We tried him on a trach collar for a while, but he developed tachypnea and had to be placed back on mechanical ventilation. He has fairly massive abdominal girth , and I think this will be one of the factors that slows this down as far as getting to where he is completely free of mechanical ventilation. He remains on a Precedex drip. OBJECTIVE: VITAL SIGNS: Blood pressure 145/84, heart rate 70, respiratory rates in the teens, oximetry is 96%. LUNGS: Clear. HEART: Regular rhythm. ABDOMEN: Soft. EXTREMITIES: Without clubbing, cyanosis, or edema. LABORATORY DATA: White count 7.8, hemoglobin 13.8, platelets 231. Sodium 147, potassium 4.3, chloride 113, bicarb 25, BUN 58, creatinine 1.91. IMPRESSION AND PLAN: 1. Respiratory failure. 2. Bronchitis with mucus plugging. 3. Chronic obstructive pulmonary disease. 4. Diastolic heart failure. 5. Life-threatening obesity with height of 5 feet 8 inches, 292 pounds. 6. Sleep apnea, reportedly compliant with CPAP. 7. Status post trach and PEG. 8. Status post left lung atelectasis. Bronchoscopy revealed just a thick white rubbery mucus plug, that required a lot of saline to lavage clear. We will continue supportive care. Deconditioning is going to be a factor as well with a likely critical illness myopathy. Critical care time is 35 minutes. Job ID: [id number] MTDD
[2019-04-17 16:45] LABS: Vancomycin, Trough 5.1 ug/mL
[2019-04-17] MEDS: Vancomycin HCl 1.25 GM in Sodium Chloride 0.9% 250 ML 250 ML IVPB SCH (18:06)
[2019-04-17] MEDS: Vancomycin HCl 1 GM in Premix Bag 1 BAG IVPB SCH (18:23)
[2019-04-17] MEDS: methylPREDNISolone Sod Succ 40 MG VIAL IVP SCH (20:49)
[2019-04-18] MEDS: guaiFENesin 200 MG TAB PER TUBE SCH ×4 (03:29→21:20)
[2019-04-18 04:00] LABS: ALT (SGPT) 30 U/L (8-55); AST (SGOT) 36 U/L (5-34); Albumin 2.9 g/dL (3.5-5.0); Alkaline Phosphatase 58 U/L (40-150); Anion Gap 13 mmol/L (10-20); BUN (Urea Nitrogen) 47 mg/dL (8.4-25.7); Bilirubin, Total 0.4 mg/dL (0.2-1.2); Calc. Creatinine Clearance 98 mL/min (70-130); Carbon Dioxide 24 mmol/L (22-29); Chloride 114 mmol/L (98-107); Estimated GFR-MDRD 47; Globulin 4.6 g/dL (2.4-3.5); Glucose 127 mg/dL (70-105); Potassium 4.2 mmol/L (3.5-5.1); Protein, Total 7.5 g/dL (6.0-8.3); Sodium 147 mmol/L (136-145)
[2019-04-18 04:19] LABS: Band 18 % (5-11); Eosinophils 1 % (0-10); Hemoglobin 13.1 g/dL (14.0-18.0); Lymphocytes 6 % (21-51); MDiff Complete? YES; Mean Corpuscular HGB CONC 28.1 g/dL (32.0-36.0); Mean Corpuscular Hemoglobin 25.4 pg (27.0-31.0); Mean Corpuscular Volume 90.4 fL (78.0-98.0); Mean Platelet Volume 9.2 fL (7.4-10.4); Monocytes 4 % (0-10); Neutrophil 70 % (42-75); Platelet Count 271 thou/uL (130-400); RBC Distribution Width 15.2 % (11.5-14.5); Red Blood Cell (RBC) Count 5.14 mill/uL (4.70-6.10); White Blood Cell (WBC) Count 7.2 thou/uL (4.8-10.8)
[2019-04-18] MEDS: Propofol 1,000 MG/100 ML VIAL IV PRN ×7 (06:43→23:42)
--- NOTE | 2019-04-18 06:56 | PDOC.EVN ---
Event Note - Event Note Event Note: Code Note When I arrived saturations in the low 60's. It was reported that the tracheostomy tube had been displaced. Rocuronium and a bougie were called for and an attempt was made to intubate, unable to confirm placement and patient biting on the tube. The patient subsequently coded (see code record). The patient was bagged, rocuronium was given, and a second attempt was made, but the tube was unable to be passed. Dr. Noyola arrived and I moved to the patient's side. She attempted from above. I removed the trach, placed the bougie, and placed a 6.0 ETT over the bougie. Bilateral breath sounds were heard and ROSC subsequently obtained. ETT sutured in place. Handoff given to Dr. Teran who proceeded with bronchoscopy and Dr. Singh was called for assistance with replacing the tracheostomy. See their notes for additional details.
[2019-04-18] MEDS ORDERED: Sodium Chloride 0.9% 1,000 ML IV SCH (07:00)
[2019-04-18] MEDS ORDERED: Rocuronium Bromide 50 MG/5 ML VIAL IVP SCH (07:00)
[2019-04-18 07:17] LABS: Actual Bicarbonate (HCO3a) 26.2 mEq/L (22-28); Base Excess (BEa) -4.8 mEq/L (-2.0 to +3.0); Calcium, Ionized 1.14 mmol/L (1.12-1.30); Hemoglobin (Hb) 14.8 g/dL (14.0-18.0); O2 Tension (PaO2) 61.2 mmHg (80.0-100.0); Potassium - ABG Lab 4.05 mmol/L (3.70-5.30)
[2019-04-18 07:18] LABS: CO2 Tension 78.1 mmHg (35.0-45.0); Puncture Site LR; pH, Arterial 7.14 (7.35-7.45)
[2019-04-18 07:19] LABS: ALV-art Gradient 554.175 (0-20)
[2019-04-18] MEDS: Piperacillin/Tazobactam 3.375 GM in Sodium Chloride 0.9% 100 ML IVPB SCH ×2 (07:31→11:58)
[2019-04-18] MEDS: Dextrose 5% in Water 1,000 ML IV SCH ×2 (07:32→17:44)
--- NOTE | 2019-04-18 07:34 | PRG ---
DATE OF SERVICE: 04/18/2019 TIME SPENT: 90 minutes of critical care time, not inclusive of the time spent performing bronchoscopy. SUBJECTIVE: This patient experienced tracheostomy obstruction approximately 4:30 a.m. I was called, code team had responded, told them to call me back immediately, after I did a get a call after 5 minutes, I called back and found that the patient had a cardiac arrest on top of that. The Family Medicine residency team took out the existing tracheostomy and put in a 6.0 endotracheal tube and was able to achieve ventilation. The patient quickly regained his pulse. Upon my arrival, his O2 sats were in the low 90s on mechanical ventilation and he had adequate pulse and blood pressure. I placed a 2.2 Ambu bronchoscope down the endotracheal tube and noted a massive clot versus mucous plug near the andrade that was ball valving back into the tracheostomy. I tried multiple times to break this up using brush biopsy forceps and was able to extract some of it, but not the whole thing. The limiting factor was the size of the endotracheal tube. I called Dr. Kidd and he promptly came up here. We exchanged the 6.0 endotracheal tube for a 7.0 Bivona over a bougie adapter. Then, used a larger Ambu bronchoscope, placed it down the tracheal tube and extracted a massive clot of the right mainstem bronchus. I then inspected the airways and lavaged and they were clear. I spoke to the patient's over the phone regarding the events. Job ID: [id number]
--- NOTE | 2019-04-18 07:58 | RAD ---
Chest one view HISTORY: Dyspnea. CPR. Chest pain. COMPARISON: 04/17/2019. FINDINGS: Cardiac silhouette is magnified and upper limits of normal in size. Pulmonary vasculature r emains engorged with patchy airspace disease throughout each lung and widespread reticulonodular interstitial thickening. Mediastinum is midline. Endotracheal catheter tip is difficult to visualize. Favored to be just above the level of the andrade. Radiopaque patch also overlies the left hilum and mediastinum, obscuring detail. Please consider short-term follow-up with increased penetration for better imaging.
[2019-04-18] MEDS ORDERED: Vecuronium 10 MG VIAL ONE (08:53)
--- NOTE | 2019-04-18 09:07 | RAD ---
Exam: Chest one view HISTORY:Cardiac arrest Comparison: 04/18/2019, 0448 hours FINDINGS: Lungs: There is bilateral pulmonary parenchymal opacification, most pronounced within the right perih ilar region Cardiac silhouette:Enlarged Pulmonary vessels: Engorged Pleural Spaces: Bilateral pleural-based densities indicating pleural fluid Pneumothorax: None Endotracheal tube terminates above the thoracic inlet Osseous abnormalities: None of acuity. IMPRESSION: Bilateral pleural and parenchymal opacities with evidence of fluid overload. Recommend continued imaging follow-up.
[2019-04-18] MEDS: methylPREDNISolone Sod Succ 40 MG VIAL IVP SCH ×2 (09:12→21:20)
[2019-04-18] MEDS: Aspirin Chewable 81 MG TAB PO SCH (09:12)
[2019-04-18] MEDS: Famotidine 40 MG/5 ML Oral Suspension PER TUBE SCH (09:13)
[2019-04-18] MEDS: Enoxaparin Sodium 120 MG/0.8 ML SYRINGE SC SCH ×2 (09:16→21:09)
[2019-04-18] MEDS: Vecuronium 10 MG VIAL IV PRN ×7 (09:56→22:34)
[2019-04-18] MEDS ORDERED: Sodium Bicarb 50 MEQ/50 ML Abboject 8.4% SYRINGE ONE (11:11)
[2019-04-18] MEDS ORDERED: EPINEPHrine 1 MG/10 ML Abboject SYRINGE ONE (11:11)
--- NOTE | 2019-04-18 13:16 | PRG ---
DATE OF SERVICE: 04/18/2019 SUBJECTIVE: Mr. Mak's events in the cps team lead hours have been reviewed and discussed with Dr. Teran. I have also met with the and the daughter and explained everything I could. She has been verbally aggressive toward everyone since the cps team lead hours when she arrived and truly does not want to hear any information that would be negative from a prognosis standpoint. I have explained to her that we are starting over and it is unclear at this point whether or not he will survive this. This morning, he has been chemically paralyzed because he was dyssynchronous with mechanical ventilation. His gas exchange improved immediately. His chest radiograph is suggestive of some mild edema, which I suspect is related to the code. OBJECTIVE: LUNGS: Remarkable for distant breath sounds. HEART: Regular rhythm. ABDOMEN: Massive without guarding. EXTREMITIES: Without edema. LABORATORY DATA: White count 7.2, hemoglobin 13.1, platelets 271. Sodium 147, potassium 4.2, chloride 114, bicarb 24, BUN 47, creatinine 1.52. IMPRESSION: 1. Respiratory failure, that was triggered by bronchitis. He was found unresponsive at home by his and EMS was called. 2. Critical illness encephalopathy up until his arrest this morning. It is unclear whether or not some of this was hypoxic and acquired as an outpatient or just related to his critical illness. 3. Status post left lung atelectasis, requiring a long bronchoscopy to suction all of the white clear mucus out of his tracheobronchial tree. 4. Probable undiagnosed chronic obstructive pulmonary disease per the , but reviewing old notes, he does have a diagnosis of COPD. I suspect she just did not want to hear anything that might be negative diagnosis attached to him. 5. Life-threatening obesity. 6. Deep vein thrombosis involving insertion of a femoral vein catheter. It is unclear whether there are more extensive clots, so he is fully anticoagulated till his trach. His Lovenox was held for over 24 hours prior to his trach and then restarted it the day after his trach. He had a tracheostomy obstruction with blood and mucus early this morning, that required removal of his trach, extensive bronchoscopy and suctioning, revision of his tracheostomy and eventual replacement of the tracheostomy tube with slightly smaller than the original tube. He had approximately 2 minutes CPR. It is unclear whether or not he will have a hypoperfusion injury at this time. 7. Diastolic heart failure. 8. [id number] renal insufficiency. Some of his elevated creatinine and BUN is iatrogenic. We had terrible problems with gas exchange with a very unimpressive x-ray. My belief was that the majority of the gas exchange issues were related to distal mucus plugging and chronic obstructive pulmonary disease. This appeared to improve after he was started on anticoagulants, whether there is a cause and effect, relationship is unclear. 9. Sleep apnea, compliant with therapy prior to admission. 10. Chronic venous stasis changes. We probably need to hold his anticoagulants until Sunday and then perhaps try to restart them. We were giving him Haldol yesterday for his encephalopathy, I have stopped that. Precedex is running in. He will need paralytics until his gas exchange improves. Hopefully, his pulmonary edema will spontaneously improve. He was on Zosyn and has had probably an adequate course of Zosyn, but with his arrest and his infiltrates on chest x-ray, it is probably reasonable to change his antimicrobial therapy. Vancomycin was started yesterday by Dr. Capone. He had a temp up to 100.9 on the at noon, but nothing yesterday. We will switch him to meropenem for now. We probably should consider stopping the vancomycin, given his renal problems. Daughter has a very good understanding of severity of his illness, but his just wanted to go home. I tried to answer all their questions, and the daughter really understands the gravity of this, but the does not want to hear anything negative and I suspect this will continue to be a problem. I will go ahead and do blood cultures before we restart the meropenem. Critical care time 45 minutes in addition to Dr. Teran's care this morning. Job ID: [id number] MTDD
[2019-04-18] MEDS: Meropenem 2 GM, Admixture Fee 1 EACH in Sodium Chloride 0.9% 100 ML IVPB SCH ×2 (13:39→21:18)
--- NOTE | 2019-04-18 14:56 | PDOC.PN ---
- Subjective Encounter Start Date: 04/18/19 Encounter Start Time: 14:54 Subjective: coded earlier in AM and all events noted & discussed w RN -: no family at bedside at the time of my evaluation -: now sedated and paralyzed - Objective MAR Reviewed: Yes Vital Signs & Weight: Vital Signs (12 hours) Temp Pulse Resp BP Pulse Ox 04/18/19 14:00 30 H 04/18/19 12:40 114 H 30 H 92 L 04/18/19 12:00 98.6 F 30 H 04/18/19 10:58 119 H 143/94 H 04/18/19 10:00 30 H 04/18/19 08:00 32 H 81 L 04/18/19 07:08 133 H 171/95 H 04/18/19 07:07 134 H 16 85 L 04/18/19 07:00 98.7 F 04/18/19 04:00 99.5 F 25 H Weight Admit Weight 319 lb 10.7 oz Weight 292 lb 15.909 oz Most Recent Monitor Data Heart Rate from ECG 103 NIBP 123/91 NIBP BP-Mean 101 Respiration from ECG 0 SpO2 95 I&O: 04/17/19 04/18/19 04/19/19 06:59 06:59 06:59 Intake Total 2819 1388.7 200 Output Total 3385 2420 625 [facility]566 -1031.3 -425 Result Diagrams: 04/18/19 03:30 04/18/19 03:30 Additional Labs: Accuchecks 04/17/19 16:49 POC Glucose 105 Microbiology 04/11/19 18:55 Venous blood - Left Hand Blood Culture - Final NO GROWTH IN 5 DAYS 04/11/19 18:46 Venous blood - Right Hand Blood Culture - Final NO GROWTH IN 5 DAYS 04/07/19 07:50 Bronchial Washing Respiratory Culture - Final 04/05/19 19:29 Urine andrew catheter Urine Culture - Final NO GROWTH AT 36 HOURS 04/05/19 19:22 Venous blood - Left Hand Blood Culture - Final NO GROWTH IN 5 DAYS 04/05/19 19:15 Venous blood - Right Hand Blood Culture - Final NO GROWTH IN 5 DAYS Phys Exam - Physical Examination sedated. HEENT: moist MMs, sclera anicteric, oral pharynx no lesions Trach in place Neck: no JVD Respiratory: no wheezing, no rales reduced at bses but difficult to auscultate d/t positioning Cardiovascular: RRR, no significant murmur Gastrointestinal: soft, no distention Musculoskeletal: no edema, pulses present Skin: no rash Dx/Plan (1) Respiratory arrest Code(s): R09.2 - RESPIRATORY ARREST Status: Acute Comment: 04/18/19.Large clot removed after urgent bronchoscopy.? Anoxic brain injury (2) Acute respiratory failure with hypoxia and hypercapnia Code(s): J96.01 - ACUTE RESPIRATORY FAILURE WITH HYPOXIA; J96.02 - ACUTE RESPIRATORY FAILURE WITH HYPERCAPNIA Status: Acute Comment: Likely due to # 2 and COPD, continue mech vent with SIMV, serial PCXR, ABG's, s/p L main bronchus evacuation of mucus plug, not weanable currently (3) Mucus plugging of bronchi Code(s): J98.09 - OTHER DISEASES OF BRONCHUS, NOT ELSEWHERE CLASSIFIED Status : Acute Comment: Follow bronch Wash Cx-negative so far (4) Acute diastolic heart failure, NYHA class 3 Code(s): I50.31 - ACUTE DIASTOLIC (CONGESTIVE) HEART FAILURE Status: Acute Comment: 30lb weight loss since admit, serial weights and I/O's (5) COPD exacerbation Code(s): J44.1 - CHRONIC OBSTRUCTIVE PULMONARY DISEASE W (ACUTE) EXACERBATION Status: Acute Comment: on nebs. (6) Morbid obesity Code(s): E66.01 - MORBID (SEVERE) OBESITY DUE TO EXCESS CALORIES Status: Chronic Comment: Weight loss resources (7) Pneumonia Code(s): J18.9 - PNEUMONIA, UNSPECIFIED ORGANISM Status: Acute Qualifiers: Laterality: left Comment: continue IV Zosyn, Vancomycin added, Duonebs, repeat blood cx today (8) Sepsis Code(s): A41.9 - SEPSIS, UNSPECIFIED ORGANISM Status: Acute Comment: due to suspected PNA.follow Cx. empiric ABx - Plan continue antibiotics, PT/OT, out of bed/ambulate, DVT proph w/SCDs supportive care.defer to PCCM -: pt remains vent dependent and now w adverese event w suspicion of prolonged -: hypoxia.remains on lovenox for suspected PE.Empiric ABx -: cont IV steroids -: am labs * . Review of Systems - Medications/Allergies Allergies/Adverse Reactions: Allergies Allergy/AdvReac Type Severity Reaction Status Date / Time No Known Drug Allergies Allergy Unverified 04/05/19 19:10 Medications: Current Medications Acetaminophen (Tylenol) 650 mg NJ Q6H PRN PRN Reason: Fever > 101 or Mild Pain Acetaminophen (Tylenol Elixir) 650 mg PO Q6H PRN PRN Reason: Fever > 101 or Mild Pain Last Admin: 04/17/19 05:53 Dose: 650 mg Albuterol/Ipratropium (Duoneb) 3 ml NEB [id number] [facility] [place] Last Admin: 04/18/19 12:40 Dose: 3 ml Albuterol/Ipratropium (Duoneb) 3 ml NEB Q6H PRN PRN Reason: SOB &/or Wheezing Aspirin (Aspirin Chewable) 81 mg PO QAM-WM [facility] [place] Last Admin: 04/18/19 09:12 Dose: 81 mg Bisacodyl (Dulcolax) 10 mg NJ DAILYPRN PRN PRN Reason: Constipation Enoxaparin Sodium (Lovenox) 120 mg SC 0900,2100 [facility] [place] Last Admin: 04/18/19 09:16 Dose: Not Given Famotidine (Pepcid) 20 mg PER TUBE DAILY [facility] [place] Last Admin: 04/18/19 09:13 Dose: 20 mg Guaifenesin (Organ-I Nr) 400 mg PER TUBE 0300,0900,1500,2100 [facility] [place] Last Admin: 04/18/19 09:12 Dose: 400 mg Dexmedetomidine HCl 400 mcg/ (Sodium Chloride) 100 mls @ 0 mls/hr IVPB INF [facility] [place] Last Admin: 04/18/19 03:29 Dose: 100 mls Dextrose/Water (D5w) 1,000 mls @ 75 mls/hr IV .[id number] [facility] [place] Last Admin: 04/18/19 07:32 Dose: 1,000 mls Fentanyl Citrate 2,000 mcg/ (Sodium Chloride) 100 mls @ 0 mls/hr IV INF [facility] [place]; Protocol Stop: 05/05/19 22:08 Fentanyl Citrate (Fentanyl Bolus) 250 mls @ 0 mls/hr IVPB PRN PRN PRN Reason: Breakthrough pain/agitation Stop: 05/05/19 22:08 Vancomycin HCl 1.25 gm/ Sodium (Chloride) 250 mls @ 166.667 mls/hr IVPB 1800 [facility] [place] Last Admin: 04/17/19 18:06 Dose: 250 mls Meropenem 2 gm/ Miscellaneous Medication 1 each/ Sodium Chloride 100 mls @ 200 mls/hr IVPB Q8HR [facility] [place] Last Admin: 04/18/19 13:39 Dose: 100 mls Insulin Human Regular (Humulin R) 0 units SC .MILD SLIDING SCALE PRN PRN Reason: Mild Correctional Scale Lorazepam (Ativan) 2 mg SLOW IVP Q1H PRN PRN Reason: Breakthrough agitation Stop: 05/05/19 22:08 Last Admin: 04/16/19 01:33 Dose: 2 mg Methylprednisolone Sodium Succinate (Solu-Medrol) 20 mg IVP Q12HR [facility] [place] Last Admin: 04/18/19 09:12 Dose: 20 mg Mineral Oil/White Petrolatum (Systane Nighttime Eye Ointment) 0 gm EA EYE PRN PRN PRN Reason: Dry Eyes Miscellaneous Medication (Pharmacy To Dose) 0 each IVPB .VANCOMYCIN PRN PRN Reason: PHARM TO DOSE Morphine Sulfate (Morphine) 2 mg SLOW IVP Q1H PRN PRN Reason: BREAKTHROUGH PAIN/Agitation Stop: 05/05/19 22:08 Last Admin: 04/17/19 00:04 Dose: 2 mg Discontinue Previous Narcotic Pain Medications And Benzodiazepines 1 each FS .ONE [facility] [place] Stop: 05/05/19 22:08 Propofol (Diprivan) 1,000 mg IV INF PRN; Protocol PRN Reason: TO ACHIEVE GOAL RASS Stop: 05/05/19 22:08 Last Admin: 04/18/19 12:00 Dose: 1,000 mg Propofol (Diprivan Bolus) 20 mg IV Q5MIN PRN PRN Reason: BREAKTHROUGH AGITATION Stop: 05/05/19 22:08 Sertraline HCl (Zoloft) 100 mg PER TUBE DAILY [facility] [place] Last Admin: 04/18/19 09:13 Dose: 100 mg Sodium Chloride (Flush - Normal Saline) 10 ml IVF Q12HR [facility] [place] Last Admin: 04/18/19 09:51 Dose: 10 ml Sodium Chloride (Flush - Normal Saline) 10 ml IVF PRN PRN PRN Reason: Saline Flush Last Admin: 04/12/19 11:42 Dose: 10 ml Vecuronium [place] (Norcuron) 10 mg IV Q30M PRN PRN Reason: VENT/SED Last Admin: 04/18/19 13:01 Dose: 10 mg
[2019-04-18] MEDS: Vancomycin HCl 1.25 GM in Sodium Chloride 0.9% 250 ML 250 ML IVPB SCH (17:43)
[2019-04-18] MEDS: Lorazepam 2 MG/ML VIAL SLOW IVP PRN (22:34)
[2019-04-19] MEDS: Vecuronium 10 MG VIAL IV PRN ×4 (01:21→07:06)
[2019-04-19] MEDS: Dextrose 5% in Water 1,000 ML IV SCH ×2 (01:24→17:59)
[2019-04-19] MEDS: Propofol 1,000 MG/100 ML VIAL IV PRN ×8 (01:26→21:40)
[2019-04-19] MEDS: guaiFENesin 200 MG TAB PER TUBE SCH ×4 (03:28→20:01)
[2019-04-19 04:58] LABS: ALT (SGPT) 30 U/L (8-55); AST (SGOT) 36 U/L (5-34); Albumin 2.7 g/dL (3.5-5.0); Alkaline Phosphatase 53 U/L (40-150); Anion Gap 13 mmol/L (10-20); BUN (Urea Nitrogen) 56 mg/dL (8.4-25.7); Bilirubin, Total 0.4 mg/dL (0.2-1.2); Calc. Creatinine Clearance 71 mL/min (70-130); Carbon Dioxide 25 mmol/L (22-29); Chloride 112 mmol/L (98-107); Estimated GFR-MDRD 32; Globulin 4.7 g/dL (2.4-3.5); Glucose 107 mg/dL (70-105); Potassium 4.4 mmol/L (3.5-5.1); Protein, Total 7.4 g/dL (6.0-8.3); Sodium 146 mmol/L (136-145)
[2019-04-19 05:25] LABS: Band 20 % (5-11); Eosinophils 1 % (0-10); Hemoglobin 12.6 g/dL (14.0-18.0); Lymphocytes 10 % (21-51); MDiff Complete? YES; Mean Corpuscular HGB CONC 28.8 g/dL (32.0-36.0); Mean Corpuscular Hemoglobin 26.1 pg (27.0-31.0); Mean Corpuscular Volume 90.5 fL (78.0-98.0); Mean Platelet Volume 9.6 fL (7.4-10.4); Monocytes 5 % (0-10); Neutrophil 64 % (42-75); Platelet Count 293 thou/uL (130-400); Platelet Morphology Comment Appears Adequate; RBC Distribution Width 15.2 % (11.5-14.5); Red Blood Cell (RBC) Count 4.82 mill/uL (4.70-6.10); White Blood Cell (WBC) Count 8.8 thou/uL (4.8-10.8)
[2019-04-19] MEDS: Meropenem 2 GM, Admixture Fee 1 EACH in Sodium Chloride 0.9% 100 ML IVPB SCH ×3 (05:45→21:01)
[2019-04-19] MEDS ORDERED: Sterile Water 0 ML ONE (06:55)
[2019-04-19] MEDS ORDERED: Sterile Water 10 ML ONE (06:56)
[2019-04-19] MEDS: Lorazepam 2 MG/ML VIAL SLOW IVP PRN ×3 (07:48→19:15)
[2019-04-19 07:50] LABS: Base Excess (BEa) -0.3 mEq/L (-2.0 to +3.0); CO2 Tension 33.4 mmHg (35.0-45.0); Calcium, Ionized 1.13 mmol/L (1.12-1.30); Carboxyhemoglobin (COHb) 1.1 gm% (0.0-3.0); Hemoglobin (Hb) 13.1 g/dL (14.0-18.0); O2 Tension (PaO2) 63.9 mmHg (80.0-100.0); Potassium - ABG Lab 3.63 mmol/L (3.70-5.30); pH, Arterial 7.46 (7.35-7.45)
[2019-04-19 07:53] LABS: Puncture Site L.R.
[2019-04-19] MEDS: Famotidine 40 MG/5 ML Oral Suspension PER TUBE SCH (08:32)
[2019-04-19] MEDS: methylPREDNISolone Sod Succ 40 MG VIAL IVP SCH (08:33)
[2019-04-19] MEDS: Aspirin Chewable 81 MG TAB PO SCH (08:34)
[2019-04-19] MEDS: Enoxaparin Sodium 120 MG/0.8 ML SYRINGE SC SCH (08:36)
--- NOTE | 2019-04-19 10:08 | RAD ---
PORTABLE CHEST: HISTORY: Respiratory distress. COMPARISON: Prior day's exam. FINDINGS: Tracheostomy tube is in place. Heart size is enlarged. Bibasilar pleural and parenchymal lung al es are seen, slightly more confluent changes in the right base. The changes have not improved as com pared to the prior examination. Questionable slight worsening to the changes of the right base as th e right hemidiaphragm is somewhat more obscured, but this is probably just related to the technique. IMPRESSION: Essentially stable chest considering differences in technique. POS: JARED
[2019-04-19] MEDS ORDERED: Acetaminophen 650 MG Suppository PR PRN (12:45)
[2019-04-19] MEDS ORDERED: Furosemide 100 MG/10 ML VIAL SLOW IVP SCH (12:45)
--- NOTE | 2019-04-19 12:52 | PRG ---
DATE OF SERVICE: 04/19/2019 SERVICE: Pulmonary medicine. INTERVAL HISTORY: The patient is doing fine from respiratory standpoint. He is breathing comfortably. Yesterday afternoon, he once again had some mucus plugging events. I ended up doing a bronchoscopy on him and liberated multiple plugs. He cannot provide any additional elements of the history and remains encephalopathic. Whenever we lighten sedation, he starts chewing and lip-smacking. PHYSICAL EXAMINATION: VITAL SIGNS: Afebrile, pulse 64, blood pressure 176/113, respirations 30, saturation 94% on 60% FiO2 and a PEEP of 5. GENERAL: The patient is intubated. He is under the influence of some sedation. HEENT: Normocephalic and atraumatic. Sclerae white. Conjunctivae pink. Oral mucosa is moist without lesions. Trachea has old blood, but nothing fresh. LUNGS: Decent air entry. There is a prolonged expiratory phase, but no wheezing present. HEART: Normal rate and regular. ABDOMEN: Soft, nontender, nondistended. Bowel sounds are positive. MUSCULOSKELETAL: No cyanosis or clubbing. No pitting in the bilateral lower extremities. NEUROLOGIC: He demonstrates sustained clonus of the bilateral lower extremities. With noxious stimuli left upper extremity, he has posturing. He does not move his right upper extremity with noxious stimuli, but will frequently open and close his mouth when doing so. Pupils are equal and reactive. He is overbreathing in the ventilator. With deep suctioning, I did elicit a cough. LABORATORY DATA: WBC 8.8, hemoglobin 12.6, and platelets 293,000. Band count is 20% on top of 64% neutrophils. INR 1.2. Ph 7.46, pCO2 of 33, PO2 of 64. Creatinine 2.1, BUN 56. Sodium 146, potassium 4.4. Liver function studies are essentially unremarkable otherwise. Blood cultures x6, urine culture and respiratory culture had been negative to date. IMAGING: Chest x-ray demonstrates stable chest. There is a right lower lobe pleural-parenchymal opacification. I do favor bilateral pleural effusions there. Cephalization is noted. Tracheostomy tube is in good position. ASSESSMENT: 1. Acute hypoxic and hypercapnic respiratory failure. 2. Pulseless electrical activity arrest. 3. Chronic obstructive pulmonary disease with acute exacerbation. 4. Morbid obesity. 5. Deep vein thrombosis. 6. Acute kidney injury on chronic kidney disease 3. 7. Chronic diastolic heart failure. 8. Anoxic brain injury. DISCUSSION AND PLAN: We will continue supportive care. We will wean away sedation as tolerated. I will back off our respiratory rate ever so slightly. I will repeat an ABG in 30 minutes as I have made a big adjustment here. Pulmonary/Critical Care will continue to follow very closely. We will continue our free water and other supportive measures through time. Hopefully, the patient's brain will start to wake up in 24 hours. I will restart anticoagulation in the morning. CRITICAL CARE TIME: 30 minutes. Job ID: [id number] MTDD
[2019-04-19 13:41] LABS: Actual Bicarbonate (HCO3a) 24.2 mEq/L (22-28); Base Excess (BEa) -0.9 mEq/L (-2.0 to +3.0); CO2 Tension 41.5 mmHg (35.0-45.0); Calcium, Ionized 1.17 mmol/L (1.12-1.30); Carboxyhemoglobin (COHb) 1.3 gm% (0.0-3.0); Hemoglobin (Hb) 13.8 g/dL (14.0-18.0); O2 Tension (PaO2) 64.9 mmHg (80.0-100.0); Potassium - ABG Lab 4.07 mmol/L (3.70-5.30); pH, Arterial 7.38 (7.35-7.45)
[2019-04-19 13:47] LABS: ALV-art Gradient 311.025 (0-20); Puncture Site L.R.
--- NOTE | 2019-04-19 14:04 | PDOC.PN ---
- Subjective Encounter Start Date: 04/19/19 Encounter Start Time: 14:02 Subjective: remain sintubated and sedated -: care discussed w daughter at bedside -: no new events - Objective MAR Reviewed: Yes Vital Signs & Weight: Vital Signs (12 hours) Temp Pulse Resp BP Pulse Ox 04/19/19 13:27 75 199/98 H 04/19/19 13:25 75 16 93 L 04/19/19 12:00 98.8 F 15 04/19/19 11:13 64 176/113 H 04/19/19 10:00 30 H 04/19/19 08:00 30 H 04/19/19 07:24 94 L 04/19/19 07:02 73 125/76 04/19/19 07:01 72 30 H 95 04/19/19 07:00 98.3 F 04/19/19 06:00 30 H 04/19/19 04:00 30 H 04/19/19 03:00 98.2 F 04/19/19 02:05 75 117/80 Weight Admit Weight 319 lb 10.7 oz Weight 299 lb 2.676 oz Most Recent Monitor Data Heart Rate from ECG 73 NIBP 199/98 NIBP BP-Mean 131 Respiration from ECG 19 SpO2 93 I&O: 04/18/19 04/19/19 04/20/19 06:59 06:59 06:59 Intake Total 1388.7 3447 60 Output Total 2420 1995 620 Balance -1031.3 1452 -560 Result Diagrams: 04/19/19 03:30 04/19/19 03:30 Additional Labs: Microbiology 04/11/19 18:55 Venous blood - Left Hand Blood Culture - Final NO GROWTH IN 5 DAYS 04/11/19 18:46 Venous blood - Right Hand Blood Culture - Final NO GROWTH IN 5 DAYS 04/07/19 07:50 Bronchial Washing Respiratory Culture - Final 04/05/19 19:29 Urine andrew catheter Urine Culture - Final NO GROWTH AT 36 HOURS 04/05/19 19:22 Venous blood - Left Hand Blood Culture - Final NO GROWTH IN 5 DAYS 04/05/19 19:15 Venous blood - Right Hand Blood Culture - Final NO GROWTH IN 5 DAYS 04/18/19 12:34 Venous blood - Left Hand Blood Culture - Preliminary Specimen has been received and culture in progress. No Growth to date. 04/18/19 12:17 A-Line - Right Subclavian Vein Blood Culture - Preliminary Specimen has been received and culture in progress. No Growth to date. Phys Exam - Physical Examination Constitutional: NAD intubated and sedated HEENT: moist MMs, sclera anicteric ETT Neck: no JVD Respiratory: no wheezing, no rales, no rhonchi Cardiovascular: RRR, no significant murmur Gastrointestinal: soft, no distention Musculoskeletal: no edema, pulses present Skin: no rash Dx/Plan (1) Respiratory arrest Code(s): R09.2 - RESPIRATORY ARREST Status: Acute Comment: 04/18/19.Large clot removed after urgent bronchoscopy.? Anoxic brain injury (2) Acute respiratory failure with hypoxia and hypercapnia Code(s): J96.01 - ACUTE RESPIRATORY FAILURE WITH HYPOXIA; J96.02 - ACUTE RESPIRATORY FAILURE WITH HYPERCAPNIA Status: Acute Comment: Likely due to # 2 and COPD, continue mech vent with SIMV, serial PCXR, ABG's, s/p L main bronchus evacuation of mucus plug, not weanable currently (3) Mucus plugging of bronchi Code(s): J98.09 - OTHER DISEASES OF BRONCHUS, NOT ELSEWHERE CLASSIFIED Status : Acute Comment: Follow bronch Wash Cx-negative so far (4) Acute diastolic heart failure, NYHA class 3 Code(s): I50.31 - ACUTE DIASTOLIC (CONGESTIVE) HEART FAILURE Status: Acute Comment: 30lb weight loss since admit, serial weights and I/O's (5) COPD exacerbation Code(s): J44.1 - CHRONIC OBSTRUCTIVE PULMONARY DISEASE W (ACUTE) EXACERBATION Status: Acute Comment: on nebs. (6) Morbid obesity Code(s): E66.01 - MORBID (SEVERE) OBESITY DUE TO EXCESS CALORIES Status: Chronic Comment: Weight loss resources (7) Pneumonia Code(s): J18.9 - PNEUMONIA, UNSPECIFIED ORGANISM Status: Acute Qualifiers: Laterality: left Comment: continue IV Zosyn, Vancomycin added, Duonebs, repeat blood cx today (8) Sepsis Code(s): A41.9 - SEPSIS, UNSPECIFIED ORGANISM Status: Acute Comment: due to suspected PNA.follow Cx. empiric ABx - Plan plan discussed w/ family, continue antibiotics, respiratory therapy, DVT proph w /SCDs vent weaning per PCCM.cont supportive care -: nebs, steroids, empiric ABx. Zosyn changed to meropenam.,cont vanco -: am labs.sodium slightly better w D5W but cr worse-hayley hemodynamic -: guarded prognosis * . Review of Systems - Medications/Allergies Allergies/Adverse Reactions: Allergies Allergy/AdvReac Type Severity Reaction Status Date / Time No Known Drug Allergies Allergy Unverified 04/05/19 19:10 Medications: Current Medications Acetaminophen (Tylenol Elixir) 650 mg PO Q6H PRN PRN Reason: Fever > 101 or Mild Pain Last Admin: 04/17/19 05:53 Dose: 650 mg Acetaminophen (Tylenol) 650 mg NV Q6H PRN PRN Reason: Fever > 101 or Mild Pain Albuterol/Ipratropium (Duoneb) 3 ml NEB [id number] [facility] Last Admin: 04/19/19 13:25 Dose: 3 ml Albuterol/Ipratropium (Duoneb) 3 ml NEB Q6H PRN PRN Reason: SOB &/or Wheezing Aspirin (Aspirin Chewable) 81 mg PO QAM-WM [facility] Last Admin: 04/19/19 08:34 Dose: 81 mg Bisacodyl (Dulcolax) 10 mg [place] DAILYPRN PRN PRN Reason: Constipation Enoxaparin Sodium (Lovenox) 120 mg SC 0900,2100 [facility] Last Admin: 04/19/19 08:36 Dose: Not Given Famotidine (Pepcid) 20 mg PER TUBE DAILY [facility] Last Admin: 04/19/19 08:32 Dose: 20 mg Furosemide (Lasix) 60 mg SLOW IVP NOW [facility] Stop: 04/19/19 14:45 Last Admin: 04/19/19 12:46 Dose: 60 mg Guaifenesin (Organ-I Nr) 400 mg PER TUBE 0300,0900,1500,2100 [facility] Last Admin: 04/19/19 08:32 Dose: 400 mg Dexmedetomidine HCl 400 mcg/ (Sodium Chloride) 100 mls @ 0 mls/hr IVPB INF [facility] Last Admin: 04/18/19 03:29 Dose: 100 mls Dextrose/Water (D5w) 1,000 mls @ 75 mls/hr IV .[id number] [facility] Last Admin: 04/19/19 01:24 Dose: 1,000 mls Fentanyl Citrate 2,000 mcg/ (Sodium Chloride) 100 mls @ 0 mls/hr IV INF [facility]; Protocol Stop: 05/05/19 22:08 Fentanyl Citrate (Fentanyl Bolus) 250 mls @ 0 mls/hr IVPB PRN PRN PRN Reason: Breakthrough pain/agitation Stop: 05/05/19 22:08 Vancomycin HCl 1.25 gm/ Sodium (Chloride) 250 mls @ 166.667 mls/hr IVPB 1800 [facility] Last Admin: 04/18/19 17:43 Dose: 250 mls Meropenem 2 gm/ Miscellaneous Medication 1 each/ Sodium Chloride 100 mls @ 200 mls/hr IVPB Q8HR [facility] Last Admin: 04/19/19 13:49 Dose: 100 mls Insulin Human Regular (Humulin R) 0 units SC .MILD SLIDING SCALE PRN PRN Reason: Mild Correctional Scale Lorazepam (Ativan) 2 mg SLOW IVP Q1H PRN PRN Reason: Breakthrough agitation Stop: 05/05/19 22:08 Last Admin: 04/19/19 11:21 Dose: 2 mg Methylprednisolone Sodium Succinate (Solu-Medrol) 40 mg IVP DAILY [facility] Mineral Oil/White Petrolatum (Systane Nighttime Eye Ointment) 0 gm EA EYE PRN PRN PRN Reason: Dry Eyes Miscellaneous Medication (Pharmacy To Dose) 0 each IVPB .VANCOMYCIN PRN PRN Reason: PHARM TO DOSE Morphine Sulfate (Morphine) 2 mg SLOW IVP Q1H PRN PRN Reason: BREAKTHROUGH PAIN/Agitation Stop: 05/05/19 22:08 Last Admin: 04/17/19 00:04 Dose: 2 mg Discontinue Previous Narcotic Pain Medications And Benzodiazepines 1 each FS .ONE [facility] Stop: 05/05/19 22:08 Propofol (Diprivan) 1,000 mg IV INF PRN; Protocol PRN Reason: TO ACHIEVE GOAL RASS Stop: 05/05/19 22:08 Last Admin: 04/19/19 13:12 Dose: 1,000 mg Propofol (Diprivan Bolus) 20 mg IV Q5MIN PRN PRN Reason: BREAKTHROUGH AGITATION Stop: 05/05/19 22:08 Sertraline HCl (Zoloft) 100 mg PER TUBE DAILY [facility] Last Admin: 04/19/19 08:32 Dose: 100 mg Sodium Chloride (Flush - Normal Saline) 10 ml IVF Q12HR [facility] Last Admin: 04/19/19 08:36 Dose: 10 ml Sodium Chloride (Flush - Normal Saline) 10 ml IVF PRN PRN PRN Reason: Saline Flush Last Admin: 04/12/19 11:42 Dose: 10 ml
[2019-04-19 17:44] LABS: Vancomycin, Trough 16.6 ug/mL
[2019-04-19] MEDS: Vancomycin HCl 1.25 GM in Sodium Chloride 0.9% 250 ML 250 ML IVPB SCH (17:53)
[2019-04-20] MEDS: Propofol 1,000 MG/100 ML VIAL IV PRN ×3 (01:55→08:08)
[2019-04-20] MEDS: guaiFENesin 200 MG TAB PER TUBE SCH ×4 (03:40→21:00)
[2019-04-20 05:04] LABS: Phosphorus 4.4 mg/dL (2.3-4.7)
[2019-04-20] MEDS: Meropenem 2 GM, Admixture Fee 1 EACH in Sodium Chloride 0.9% 100 ML IVPB SCH ×3 (05:04→21:01)
[2019-04-20 05:06] LABS: Anion Gap 13 mmol/L (10-20); BUN (Urea Nitrogen) 62 mg/dL (8.4-25.7); Calc. Creatinine Clearance 77 mL/min (70-130); Calcium 9.1 mg/dL (7.8-10.44); Carbon Dioxide 24 mmol/L (22-29); Chloride 107 mmol/L (98-107); Estimated GFR-MDRD 35; Glucose 87 mg/dL (70-105); Magnesium 2.7 mg/dL (1.6-2.6); Potassium 3.8 mmol/L (3.5-5.1); Sodium 140 mmol/L (136-145)
[2019-04-20 05:43] LABS: Band 16 % (5-11); Eosinophils 2 % (0-10); Hemoglobin 13.3 g/dL (14.0-18.0); Lymphocytes 8 % (21-51); MDiff Complete? YES; Mean Corpuscular HGB CONC 30.1 g/dL (32.0-36.0); Mean Corpuscular Hemoglobin 27.1 pg (27.0-31.0); Mean Corpuscular Volume 89.9 fL (78.0-98.0); Mean Platelet Volume 8.9 fL (7.4-10.4); Monocytes 5 % (0-10); Neutrophil 69 % (42-75); Platelet Count 332 thou/uL (130-400); Platelet Morphology Comment Appears Adequate; RBC Distribution Width 15.2 % (11.5-14.5); Red Blood Cell (RBC) Count 4.91 mill/uL (4.70-6.10); White Blood Cell (WBC) Count 8.7 thou/uL (4.8-10.8)
[2019-04-20 07:59] LABS: Actual Bicarbonate (HCO3a) 24.8 mEq/L (22-28); Base Excess (BEa) 0.5 mEq/L (-2.0 to +3.0); CO2 Tension 38.5 mmHg (35.0-45.0); Calcium, Ionized 1.18 mmol/L (1.12-1.30); Carboxyhemoglobin (COHb) 1.3 gm% (0.0-3.0); Hemoglobin (Hb) 13.9 g/dL (14.0-18.0); O2 Tension (PaO2) 61.1 mmHg (80.0-100.0); Potassium - ABG Lab 3.86 mmol/L (3.70-5.30); pH, Arterial 7.43 (7.35-7.45)
[2019-04-20] MEDS: Aspirin Chewable 81 MG TAB PO SCH (08:02)
[2019-04-20 08:04] LABS: ALV-art Gradient 318.575 (0-20); Puncture Site L.R.
--- NOTE | 2019-04-20 08:41 | RAD ---
PORTABLE CHEST: HISTORY: Pneumonia. COMPARISON: Prior day's study. FINDINGS: Heart size is enlarged. Pleural and parenchymal changes in the right base and also changes within th e left base are fairly similar to the prior exam. Tracheostomy tube remains in place. IMPRESSION: Fairly stable overall appearance to the chest. POS: JARED
[2019-04-20] MEDS ORDERED: methylPREDNISolone Sod Succ 40 MG VIAL IVP SCH (09:00)
[2019-04-20] MEDS ORDERED: Furosemide 40 MG/4 ML VIAL SLOW IVP SCH (10:30)
--- NOTE | 2019-04-20 10:31 | PRG ---
DATE OF SERVICE: 04/20/2019 SERVICE: Pulmonary Medicine. INTERVAL HISTORY: The patient is doing poorly from a neurologic standpoint. He has not made any significant improvements over the last 24 hours. Otherwise, there has been no interval change to his condition. His oxygen requirements still remain quite elevated. He continues to have oozing from the tracheostomy site itself. PHYSICAL EXAMINATION: VITAL SIGNS: Afebrile, pulse 100, blood pressure 126/65, respirations 10, saturation 92% on 80% FiO2, and a PEEP of 5. HEENT: Normocephalic and atraumatic. Sclerae white. Conjunctivae pink. Oral mucosa is moist without lesions. LUNGS: Decent air entry. There is a prolonged expiratory phase. No wheezing or crackles are appreciated. HEART: Normal rate and regular. ABDOMEN: Soft, nontender, and nondistended. Bowel sounds are positive. MUSCULOSKELETAL: No cyanosis or clubbing. No pitting in the bilateral lower extremities. NEUROLOGIC: He has sustained clonus in the bilateral lower extremities. He seems to have a downgoing Babinski with stimulus of the right foot. The left foot is neutral. Today, he is not demonstrating any significant posturing, but whenever I give him noxious stimuli, he becomes more tachypneic and tachycardic. LABORATORY DATA: WBC 8.7, hemoglobin 13.3 and stable, and platelets 332,000. Band counts are decreasing at 16% currently. INR 1.2. PH 7.43, pCO2 of 38.5, and pO2 of 61 on 60% FiO2 at that time, corresponding to a saturation of 91%. Creatinine 1.97 and BUN 62. Basic metabolic profile is otherwise unremarkable. Magnesium 2.7 and phosphorus 4.4. Over the last 24 hours, he is net positive 3 L. IMAGING STUDIES: Chest x-ray demonstrates bibasilar pleural parenchymal changes. There is likely a layering effusion on the right. Cephalization is noted. ASSESSMENT: 1. Acute hypoxic respiratory failure. 2. Chronic obstructive pulmonary disease with acute exacerbation. 3. Morbid obesity. 4. Deep venous thrombosis. 5. Acute kidney injury on chronic kidney disease 3. 6. Acute on chronic diastolic heart failure. 7. History of pulseless electrical activity arrest, status post return of circulation. 8. Anoxic brain injury, suspected. DISCUSSION AND PLAN: We will wean the propofol. I will provide the patient with additional dose of Lasix this afternoon. I will drop his D5 water down to 25 an hour. We will continue making efforts at diuresing him down to euvolemia. Pulmonary/Critical Care will continue to follow along. Hopefully, over the next 24 hours, the patient's mentation will start to come around. If it does not, there is a very good chance that he is going to have permanent debility moving forward. Critical care time: 30 minutes. Job ID: [id number] MTDD
[2019-04-20] MEDS: Dextrose 5% in Water 1,000 ML IV SCH (10:40)
[2019-04-20] MEDS: Famotidine 40 MG/5 ML Oral Suspension PER TUBE SCH (11:31)
--- NOTE | 2019-04-20 15:58 | PDOC.PN ---
- Subjective Encounter Start Date: 04/20/19 Encounter Start Time: 15:56 Subjective: no changes or ON events -: care discussed w daughter at bedside - Objective MAR Reviewed: Yes Vital Signs & Weight: Vital Signs (12 hours) Temp Pulse Resp BP Pulse Ox 04/20/19 13:47 88 106/64 04/20/19 13:45 89 25 H 94 L 04/20/19 10:22 103 H 125/63 04/20/19 07:45 100 112/59 L 04/20/19 07:42 96 25 H 93 L 04/20/19 07:21 25 H 94 L 04/20/19 07:00 98.8 F 04/20/19 06:00 27 H 04/20/19 04:00 98.6 F 24 H Weight Admit Weight 319 lb 10.7 oz Weight 299 lb 13.259 oz Most Recent Monitor Data Heart Rate from ECG 78 NIBP 94/56 NIBP BP-Mean 68 Respiration from ECG 27 SpO2 94 I&O: 04/19/19 04/20/19 04/21/19 06:59 06:59 06:59 Intake Total 3447 4480 48165 Output Total 1994 4220 2790 Balance 5268 695 6831 Result Diagrams: 04/20/19 04:01 04/20/19 04:01 Additional Labs: Laboratory Tests 04/17/19 04/18/19 04/19/19 03:30 03:30 03:30 Creatinine 1.91 H 1.52 H 2.10 H 04/20/19 04:01 Creatinine 1.97 H Phys Exam - Physical Examination Constitutional: NAD opens eyes when stimulated HEENT: PERRLA, moist MMs, sclera anicteric, oral pharynx no lesions ETT Neck: no nodes, no JVD, supple, full ROM Respiratory: no wheezing, no rales, no rhonchi, clear to auscultation bilateral Cardiovascular: RRR, no significant murmur Gastrointestinal: soft, non-tender, no distention, positive bowel sounds Musculoskeletal: no edema Dx/Plan (1) Respiratory arrest Code(s): R09.2 - RESPIRATORY ARREST Status: Acute Comment: 04/18/19.Large clot removed after urgent bronchoscopy.? Anoxic brain injury (2) Acute respiratory failure with hypoxia and hypercapnia Code(s): J96.01 - ACUTE RESPIRATORY FAILURE WITH HYPOXIA; J96.02 - ACUTE RESPIRATORY FAILURE WITH HYPERCAPNIA Status: Acute Comment: Likely due to # 2 and COPD, continue mech vent with SIMV, serial PCXR, ABG's, s/p L main bronchus evacuation of mucus plug, not weanable currently (3) Mucus plugging of bronchi Code(s): J98.09 - OTHER DISEASES OF BRONCHUS, NOT ELSEWHERE CLASSIFIED Status : Acute Comment: Follow bronch Wash Cx-negative so far (4) Acute diastolic heart failure, NYHA class 3 Code(s): I50.31 - ACUTE DIASTOLIC (CONGESTIVE) HEART FAILURE Status: Acute Comment: 30lb weight loss since admit, serial weights and I/O's (5) COPD exacerbation Code(s): J44.1 - CHRONIC OBSTRUCTIVE PULMONARY DISEASE W (ACUTE) EXACERBATION Status: Acute Comment: on nebs. (6) Morbid obesity Code(s): E66.01 - MORBID (SEVERE) OBESITY DUE TO EXCESS CALORIES Status: Chronic Comment: Weight loss resources (7) Pneumonia Code(s): J18.9 - PNEUMONIA, UNSPECIFIED ORGANISM Status: Acute Qualifiers: Laterality: left Comment: continue IV Zosyn, Vancomycin added, Duonebs, repeat blood cx today (8) Sepsis Code(s): A41.9 - SEPSIS, UNSPECIFIED ORGANISM Status: Acute Comment: due to suspected PNA.follow Cx. empiric ABx - Plan plan discussed w/ family, continue antibiotics, PT/OT, respiratory therapy, out of bed/ambulate, DVT proph w/SCDs wean off sedation.vent support -: rest as before -: am labs * . Review of Systems - Medications/Allergies Allergies/Adverse Reactions: Allergies Allergy/AdvReac Type Severity Reaction Status Date / Time No Known Drug Allergies Allergy Unverified 04/05/19 19:10 Medications: Current Medications Acetaminophen (Tylenol Elixir) 650 mg PO Q6H PRN PRN Reason: Fever > 101 or Mild Pain Last Admin: 04/17/19 05:53 Dose: 650 mg Acetaminophen (Tylenol) 650 mg [place] Q6H PRN PRN Reason: Fever > 101 or Mild Pain Albuterol/Ipratropium (Duoneb) 3 ml NEB [id number] [facility] Last Admin: 04/20/19 13:45 Dose: 3 ml Albuterol/Ipratropium (Duoneb) 3 ml NEB Q6H PRN PRN Reason: SOB &/or Wheezing Aspirin (Aspirin Chewable) 81 mg PO QAM-[facility] Last Admin: 04/20/19 08:02 Dose: 81 mg Bisacodyl (Dulcolax) 10 mg [place] DAILYPRN PRN PRN Reason: Constipation Famotidine (Pepcid) 20 mg PER TUBE DAILY [facility] Last Admin: 04/20/19 11:31 Dose: Not Given Furosemide (Lasix) 40 mg SLOW IVP 0600 [facility] Guaifenesin (Organ-I Nr) 400 mg PER TUBE 0300,0900,1500,2100 [facility] Last Admin: 04/20/19 14:54 Dose: 400 mg Dexmedetomidine HCl 400 mcg/ (Sodium Chloride) 100 mls @ 0 mls/hr IVPB INF [facility] Last Admin: 04/20/19 10:50 Dose: 100 mls Vancomycin HCl 1.25 gm/ Sodium (Chloride) 250 mls @ 166.667 mls/hr IVPB 1800 [facility] Last Admin: 04/19/19 17:53 Dose: 250 mls Meropenem 2 gm/ Miscellaneous Medication 1 each/ Sodium Chloride 100 mls @ 200 mls/hr IVPB Q8HR [facility] Last Admin: 04/20/19 14:57 Dose: 100 mls Dextrose/Water (D5w) 1,000 mls @ 25 mls/hr IV .Q24H [facility] Last Admin: 04/20/19 10:40 Dose: 1,000 mls Insulin Human Regular (Humulin R) 0 units SC .MILD SLIDING SCALE PRN PRN Reason: Mild Correctional Scale Mineral Oil/White Petrolatum (Systane Nighttime Eye Ointment) 0 gm EA EYE PRN PRN PRN Reason: Dry Eyes Miscellaneous Medication (Pharmacy To Dose) 0 each IVPB .VANCOMYCIN PRN PRN Reason: PHARM TO DOSE Discontinue Previous Narcotic Pain Medications And Benzodiazepines 1 each FS .ONE [facility] Stop: 05/05/19 22:08 Prednisone (Prednisone) 20 mg PO QAM-[facility] Sertraline HCl (Zoloft) 100 mg PER TUBE DAILY [facility] Last Admin: 04/20/19 08:02 Dose: 100 mg Sodium Chloride (Flush - Normal Saline) 10 ml IVF Q12HR [facility] Last Admin: 04/20/19 08:02 Dose: 10 ml Sodium Chloride (Flush - Normal Saline) 10 ml IVF PRN PRN PRN Reason: Saline Flush Last Admin: 04/12/19 11:42 Dose: 10 ml
[2019-04-20] MEDS: Vancomycin HCl 1.25 GM in Sodium Chloride 0.9% 250 ML 250 ML IVPB SCH (16:59)
[2019-04-21] MEDS: guaiFENesin 200 MG TAB PER TUBE SCH ×4 (02:54→20:28)
[2019-04-21] MEDS: Furosemide 40 MG/4 ML VIAL SLOW IVP SCH (05:48)
[2019-04-21 06:15] LABS: Anisocytosis SLIGHT = 6-15 cells (100X) (0-5/hpf); Band 13 % (5-11); Eosinophils 4 % (0-10); Hemoglobin 12.9 g/dL (14.0-18.0); Lymphocytes 8 % (21-51); MDiff Complete? YES; Mean Corpuscular HGB CONC 29.7 g/dL (32.0-36.0); Mean Corpuscular Hemoglobin 26.7 pg (27.0-31.0); Mean Corpuscular Volume 89.7 fL (78.0-98.0); Mean Platelet Volume 7.9 fL (7.4-10.4); Monocytes 4 % (0-10); Neutrophil 71 % (42-75); Platelet Count 344 thou/uL (130-400); RBC Distribution Width 15.2 % (11.5-14.5); Red Blood Cell (RBC) Count 4.83 mill/uL (4.70-6.10); White Blood Cell (WBC) Count 8.2 thou/uL (4.8-10.8)
[2019-04-21 06:16] LABS: Anion Gap 13 mmol/L (10-20); BUN (Urea Nitrogen) 66 mg/dL (8.4-25.7); Calc. Creatinine Clearance 83 mL/min (70-130); Calcium 9.6 mg/dL (7.8-10.44); Carbon Dioxide 24 mmol/L (22-29); Chloride 111 mmol/L (98-107); Estimated GFR-MDRD 39; Glucose 103 mg/dL (70-105); Potassium 3.9 mmol/L (3.5-5.1); Sodium 144 mmol/L (136-145)
[2019-04-21] MEDS: Meropenem 2 GM, Admixture Fee 1 EACH in Sodium Chloride 0.9% 100 ML IVPB SCH (06:20)
[2019-04-21] MEDS: Aspirin Chewable 81 MG TAB PO SCH (07:26)
[2019-04-21] MEDS: predniSONE 20 MG TAB PO SCH (07:26)
[2019-04-21 07:31] LABS: Actual Bicarbonate (HCO3a) 26.1 mEq/L (22-28); Base Excess (BEa) 1.5 mEq/L (-2.0 to +3.0); CO2 Tension 41.2 mmHg (35.0-45.0); Calcium, Ionized 1.23 mmol/L (1.12-1.30); Carboxyhemoglobin (COHb) 1.1 gm% (0.0-3.0); O2 Tension (PaO2) 73.4 mmHg (80.0-100.0); Potassium - ABG Lab 3.81 mmol/L (3.70-5.30); pH, Arterial 7.42 (7.35-7.45)
[2019-04-21 07:33] LABS: Puncture Site L.R.
--- NOTE | 2019-04-21 07:47 | RAD ---
Chest one view HISTORY: Pneumonia. Follow-up. COMPARISON: 04/20/2019. FINDINGS: Cardiac silhouette is magnified and enlarged. Pulmonary vasculature remains upper limits of normal. Parenchymal opacity at the right lower lobe has improved. Mediastinum is midline. Lines and tubes appear unchanged in position. No evidence of pneumothorax. Ca rdiac monitor leads overlie the chest. IMPRESSION: Improved aeration of the right lower lobe. Cardiomegaly and other findings are stable.
[2019-04-21] MEDS: Famotidine 40 MG/5 ML Oral Suspension PER TUBE SCH (07:56)
[2019-04-21] MEDS: Dextrose 5% in Water 1,000 ML IV SCH (09:59)
[2019-04-21] MEDS ORDERED: Enoxaparin Sodium 40 MG/0.4 ML SYRINGE SC SCH (10:30)
[2019-04-21 17:24] LABS: Vancomycin, Trough 21.6 ug/mL
--- NOTE | 2019-04-21 19:16 | PDOC.PN ---
- Subjective Encounter Start Date: 04/21/19 Encounter Start Time: 19:14 Subjective: seen and examined.more awake today & opens eyes -: follow simple commands. -: still thick sanguinous secretions from Trach - Objective MAR Reviewed: Yes Vital Signs & Weight: Vital Signs (12 hours) Temp Pulse Resp BP Pulse Ox 04/21/19 18:19 74 147/82 H 04/21/19 17:26 70 134/79 04/21/19 16:00 98.5 F 04/21/19 13:58 71 108/69 04/21/19 13:56 70 14 98 04/21/19 10:58 109 H 149/93 H 04/21/19 07:18 75 159/75 H 04/21/19 07:17 75 18 96 Weight Admit Weight 319 lb 10.7 oz Weight 292 lb 1.8 oz Most Recent Monitor Data Heart Rate from ECG 75 NIBP 134/79 NIBP BP-Mean 97 Respiration from ECG 19 SpO2 97 I&O: 04/20/19 04/21/19 04/22/19 06:59 06:59 06:59 Intake Total 4480 23412 1090 Output Total 4220 5140 2425 Balance 260 34753 -1335 Result Diagrams: 04/21/19 05:45 04/21/19 05:45 Additional Labs: Microbiology 04/11/19 18:55 Venous blood - Left Hand Blood Culture - Final NO GROWTH IN 5 DAYS 04/11/19 18:46 Venous blood - Right Hand Blood Culture - Final NO GROWTH IN 5 DAYS 04/07/19 07:50 Bronchial Washing Respiratory Culture - Final 04/05/19 19:29 Urine andrew catheter Urine Culture - Final NO GROWTH AT 36 HOURS 04/05/19 19:22 Venous blood - Left Hand Blood Culture - Final NO GROWTH IN 5 DAYS 04/05/19 19:15 Venous blood - Right Hand Blood Culture - Final NO GROWTH IN 5 DAYS 04/18/19 12:34 Venous blood - Left Hand Blood Culture - Preliminary NO GROWTH AT 48 HOURS 04/18/19 12:17 A-Line - Right Subclavian Vein Blood Culture - Preliminary NO GROWTH AT 48 HOURS Laboratory Tests 04/05/19 04/07/19 04/10/19 18:40 03:30 04:13 Creatinine 2.50 H 2.38 H 1.69 H 04/13/19 04/19/19 04/20/19 03:55 03:30 04:01 Creatinine 1.83 H 2.10 H 1.97 H 04/21/19 05:45 Creatinine 1.80 H Phys Exam - Physical Examination Constitutional: NAD HEENT: PERRLA, moist MMs, sclera anicteric, oral pharynx no lesions Neck: no JVD trach w bloody secretions Respiratory: no wheezing, no rales, no rhonchi, clear to auscultation bilateral reduced at bases ,coarse Cardiovascular: RRR, no significant murmur Gastrointestinal: soft, non-tender, no distention, positive bowel sounds Musculoskeletal: no edema, pulses present Neurological: moves all 4 limbs Psychiatric: normal affect Deviation from normal: still some effects of sedation Skin: no rash Dx/Plan (1) Respiratory arrest Code(s): R09.2 - RESPIRATORY ARREST Status: Acute Comment: 04/18/19.Large clot removed after urgent bronchoscopy.? Anoxic brain injury (2) Acute respiratory failure with hypoxia and hypercapnia Code(s): J96.01 - ACUTE RESPIRATORY FAILURE WITH HYPOXIA; J96.02 - ACUTE RESPIRATORY FAILURE WITH HYPERCAPNIA Status: Acute Comment: Likely due to # 2 and COPD, continue mech vent with SIMV, serial PCXR, ABG's, s/p L main bronchus evacuation of mucus plug, not weanable currently (3) Mucus plugging of bronchi Code(s): J98.09 - OTHER DISEASES OF BRONCHUS, NOT ELSEWHERE CLASSIFIED Status : Acute Comment: Follow bronch Wash Cx-negative so far (4) Acute diastolic heart failure, NYHA class 3 Code(s): I50.31 - ACUTE DIASTOLIC (CONGESTIVE) HEART FAILURE Status: Acute Comment: 30lb weight loss since admit, serial weights and I/O's (5) COPD exacerbation Code(s): J44.1 - CHRONIC OBSTRUCTIVE PULMONARY DISEASE W (ACUTE) EXACERBATION Status: Acute Comment: on nebs. (6) Morbid obesity Code(s): E66.01 - MORBID (SEVERE) OBESITY DUE TO EXCESS CALORIES Status: Chronic Comment: Weight loss resources (7) Pneumonia Code(s): J18.9 - PNEUMONIA, UNSPECIFIED ORGANISM Status: Acute Qualifiers: Laterality: left Comment: continue IV Zosyn, Vancomycin added, Duonebs, repeat blood cx today (8) Sepsis Code(s): A41.9 - SEPSIS, UNSPECIFIED ORGANISM Status: Acute Comment: due to suspected PNA.follow Cx. empiric ABx - Plan DVT proph w/SCDs lasix today again.monitor fluid status -: Vent weaning per PCCM. -: Consider Tube feeds -: am labs * . Review of Systems - Review of Systems Other: can not be obtained due to tracheostomy - Medications/Allergies Allergies/Adverse Reactions: Allergies Allergy/AdvReac Type Severity Reaction Status Date / Time No Known Drug Allergies Allergy Unverified 04/05/19 19:10 Medications: Current Medications Acetaminophen (Tylenol Elixir) 650 mg PO Q6H PRN PRN Reason: Fever > 101 or Mild Pain Last Admin: 04/17/19 05:53 Dose: 650 mg Acetaminophen (Tylenol) 650 mg [place] Q6H PRN PRN Reason: Fever > 101 or Mild Pain Albuterol/Ipratropium (Duoneb) 3 ml NEB [id number] [facility] Last Admin: 04/21/19 18:19 Dose: 3 ml Albuterol/Ipratropium (Duoneb) 3 ml NEB Q6H PRN PRN Reason: SOB &/or Wheezing Aspirin (Aspirin Chewable) 81 mg PO QAM-WM [facility] Last Admin: 04/21/19 07:26 Dose: 81 mg Bisacodyl (Dulcolax) 10 mg [place] DAILYPRN PRN PRN Reason: Constipation Enoxaparin Sodium (Lovenox) 40 mg SC DAILY [facility] Famotidine (Pepcid) 20 mg PER TUBE DAILY [facility] Last Admin: 04/21/19 07:56 Dose: 20 mg Furosemide (Lasix) 40 mg SLOW IVP 0600 [facility] Last Admin: 04/21/19 05:48 Dose: 40 mg Guaifenesin (Organ-I Nr) 400 mg PER TUBE 0300,0900,1500,2100 [facility] Last Admin: 04/21/19 15:07 Dose: 400 mg Dexmedetomidine HCl 400 mcg/ (Sodium Chloride) 100 mls @ 0 mls/hr IVPB INF [facility] Last Admin: 04/21/19 09:59 Dose: 100 mls Dextrose/Water (D5w) 1,000 mls @ 25 mls/hr IV .Q24H [facility] Last Admin: 04/21/19 09:59 Dose: 1,000 mls Insulin Human Regular (Humulin R) 0 units SC .MILD SLIDING SCALE PRN PRN Reason: Mild Correctional Scale Mineral Oil/White Petrolatum (Systane Nighttime Eye Ointment) 0 gm EA EYE PRN PRN PRN Reason: Dry Eyes Prednisone (Prednisone) 20 mg PO QAM-WM [facility] Last Admin: 04/21/19 07:26 Dose: 20 mg Sertraline HCl (Zoloft) 100 mg PER TUBE DAILY [facility] Last Admin: 04/21/19 07:26 Dose: 100 mg Sodium Chloride (Flush - Normal Saline) 10 ml IVF Q12HR [facility] Last Admin: 04/21/19 07:26 Dose: 10 ml Sodium Chloride (Flush - Normal Saline) 10 ml IVF PRN PRN PRN Reason: Saline Flush Last Admin: 04/12/19 11:42 Dose: 10 ml
[2019-04-22] MEDS: guaiFENesin 200 MG TAB PER TUBE SCH ×4 (02:11→20:04)
[2019-04-22 04:52] LABS: Anion Gap 14 mmol/L (10-20); BUN (Urea Nitrogen) 68 mg/dL (8.4-25.7); Calc. Creatinine Clearance 90 mL/min (70-130); Calcium 9.9 mg/dL (7.8-10.44); Carbon Dioxide 23 mmol/L (22-29); Chloride 111 mmol/L (98-107); Estimated GFR-MDRD 43; Glucose 102 mg/dL (70-105); Sodium 144 mmol/L (136-145)
[2019-04-22 05:07] LABS: Band 15 % (5-11); Eosinophils 6 % (0-10); Hemoglobin 13.3 g/dL (14.0-18.0); Lymphocytes 11 % (21-51); MDiff Complete? YES; Mean Corpuscular HGB CONC 30.7 g/dL (32.0-36.0); Mean Corpuscular Hemoglobin 27.2 pg (27.0-31.0); Mean Corpuscular Volume 88.7 fL (78.0-98.0); Mean Platelet Volume 8.1 fL (7.4-10.4); Monocytes 2 % (0-10); Neutrophil 65 % (42-75); Platelet Count 366 thou/uL (130-400); RBC Distribution Width 15.4 % (11.5-14.5); Red Blood Cell (RBC) Count 4.89 mill/uL (4.70-6.10); White Blood Cell (WBC) Count 8.7 thou/uL (4.8-10.8)
--- NOTE | 2019-04-22 07:21 | RAD ---
CHEST ONE VIEW: INDICATIONS: History of pneumonia. COMPARISON: 04/21/2019 FINDINGS: There are worsening infrahilar air space opacities with bilateral pleural effusions and worsening pul monary vascular congestion. Cardiomegaly persists. Tracheostomy tube is unchanged. No pneumothorax is evident. IMPRESSION: Worsening volume loss or congestive heart failure. There are worsening infrahilar air space opacitie s, suspicious for edema. There is worsening pulmonary vascular congestion and small bilateral pleura l effusions. POS: BH
[2019-04-22] MEDS: Famotidine 40 MG/5 ML Oral Suspension PER TUBE SCH (08:39)
[2019-04-22] MEDS: predniSONE 20 MG TAB PO SCH (08:40)
[2019-04-22] MEDS: Aspirin Chewable 81 MG TAB PO SCH (08:40)
[2019-04-22] MEDS ORDERED: Enoxaparin Sodium 40 MG/0.4 ML SYRINGE SC SCH (09:00)
--- NOTE | 2019-04-22 09:04 | PRG ---
DATE OF SERVICE: 04/21/2019 SERVICE: Pulmonary Medicine. INTERVAL HISTORY: The patient is doing fine from respiratory standpoint. Mentation singh, he is actually starting to wake up a little bit. He is following some commands. There has been no interval change to his condition, otherwise. Oxygen requirements remained quite elevated. He is stable and not getting worse, however. PHYSICAL EXAMINATION: VITAL SIGNS: Afebrile. Pulse 82, blood pressure 134/75, respirations 30, saturation 94%, on 70% FiO2. GENERAL: The patient is intubated. He is on a little bit of sedation. HEENT: Normocephalic and atraumatic. Sclerae white. Conjunctivae pink. Oral mucosa is moist without lesions. LUNGS: Very good air entry. No prolonged expiratory phase is present. HEART: Normal rate and regular. ABDOMEN: Soft, nontender, nondistended. Bowel sounds are positive. MUSCULOSKELETAL: No cyanosis or clubbing. There is diffuse 2+ pitting. NEUROLOGICAL: Grossly nonfocal. He demonstrates significant weakness, but he is moving his upper and lower extremities to command. Everything seems to be fairly symmetric. LABORATORY DATA: WBC 8.2, hemoglobin 12.9, platelets 344,000. Band count is 13 %, which is downtrending. INR 1.2. Creatinine 1.8 and downtrending. Basic metabolic profile is otherwise stable are unremarkable. Blood cultures x6 are unremarkable. Respiratory culture and urine culture all negative. IMAGING: Chest x-ray demonstrates improved aeration in the right lower lobe. Cardiomegaly is stable. ASSESSMENT: 1. Acute hypoxic respiratory failure. 2. Chronic obstructive pulmonary disease with acute exacerbation. 3. Morbid obesity. 4. Deep venous thrombosis. 5. Acute kidney injury on chronic kidney disease 3, resolving. 6. Acute on chronic diastolic heart failure. 7. Recent pulseless electrical activity with returning neurologic function. DISCUSSION AND PLAN: The patient will be placed on Lovenox. If he tolerates this without having a significant bleeding event for 24 hours, we will go back up to full-dose anticoagulation. Lasix will be continued, so that we can get him closer to euvolemia. Hopefully, his oxygen requirements improve as we get his volume status improved. Pulmonary/Critical Care will continue to follow along. Critical care time: 30 minutes. Job ID: [id number] [facility]
[2019-04-22] MEDS ORDERED: Apixaban 5 MG TAB PO SCH (11:00)
--- NOTE | 2019-04-22 11:01 | PRG ---
DATE OF SERVICE: 04/22/2019 SERVICE: Pulmonary Medicine. INTERVAL HISTORY: The patient is breathing comfortably on mechanical ventilation. His oxygen requirements have improved dramatically over the last 24 hours. His in's and out's are suggesting that he has a negative 1 L over the last 24 hours. That being said, I think it is probably more robust than that. There has been no interval change to his condition otherwise. PHYSICAL EXAMINATION: VITAL SIGNS: Afebrile. Pulse 88, respirations 18, saturation 95% on 50% FiO2 and a PEEP of 7, and blood pressure 138/72. HEENT: Normocephalic and atraumatic. Sclerae are white. Conjunctivae are pink. Oral mucosa is moist without lesions. LUNGS: Decent air entry. Crackles are present dependently. HEART: Normal rate. Regular. ABDOMEN: Soft, nontender, and nondistended. Bowel sounds are positive. MUSCULOSKELETAL: No cyanosis or clubbing. The pitting edema has resolved other than at the hips. It is still 1+ there. : Pendleton catheter in place. NEUROLOGIC: At this point, nonfocal. LABORATORY DATA: WBC 8.7, hemoglobin 13.3, and platelets 366,000. Creatinine 1.66 and downtrending beautifully. Basic metabolic profile is otherwise unremarkable. Potassium 4.0. All culture results are negative to date. IMAGING STUDIES: Chest x-ray demonstrates bilateral pleural effusions, and cephalization consistent with volume overload. This is an underpenetrated film, making it look worse than yesterday, though I feel it is likely a little better. ASSESSMENT: 1. Acute hypoxic respiratory failure, much improved. 2. Acute on chronic diastolic heart failure, improving. 3. Acute kidney injury on chronic kidney disease 3, resolved. 4. Chronic obstructive pulmonary disease with acute exacerbation. 5. Deep venous thrombosis with presumed pulmonary embolism. 6. Morbid obesity. 7. Recent pulseless electrical activity with returning neurologic function. DISCUSSION AND PLAN: We will escalate the patient on to full-dose anticoagulation with Eliquis. He is auto diuresing on his own. As such, I am going to interrupt his Lasix. Pulmonary/Critical Care will continue to follow along. We will involve Physical Therapy, Occupational Therapy, and Speech Pathology. Adjustments have been made to the ventilator. We would decrease the PEEP, decrease the pressure support, and decrease the FiO2 throughout the day. Eventually, he will be ready for T collar trial, but today is not that day. Critical care time: 30 minutes. Job ID: [id number] [facility]
[2019-04-22] MEDS ORDERED: Furosemide 40 MG/4 ML VIAL SLOW IVP SCH (14:00)
[2019-04-22] MEDS: Furosemide 40 MG/4 ML VIAL SLOW IVP SCH (14:37)
[2019-04-22] MEDS: Dextrose 5% in Water 1,000 ML IV SCH (15:22)
[2019-04-22] MEDS: Apixaban 5 MG TAB PO SCH (20:04)
--- NOTE | 2019-04-22 21:42 | PDOC.HOSPP ---
- Subjective Subjective: Remains on mech ventilation via trach with slow weaning attempts. Tolerating TF' s with Vital high protein @ 80ml/h. - Objective Vital Signs & Weight: Vital Signs (12 hours) Temp Pulse Pulse Pulse Resp BP BP 04/22/19 20:00 25 H 04/22/19 18:52 89 128/76 04/22/19 18:00 23 H 04/22/19 16:00 98.6 F 24 H 04/22/19 14:00 26 H 04/22/19 12:57 91 161/89 H 04/22/19 12:17 90 161/89 H 04/22/19 12:00 98.4 F 04/22/19 10:58 94 89 160/92 H 04/22/19 10:10 90 04/22/19 10:00 25 H BP Pulse Ox Pulse Ox 04/22/19 20:00 04/22/19 18:52 04/22/19 18:00 04/22/19 16:00 04/22/19 14:00 04/22/19 12:57 04/22/19 12:17 04/22/19 12:00 04/22/19 10:58 160/82 H 95 96 04/22/19 10:10 04/22/19 10:00 Weight Admit Weight 319 lb 10.7 oz Weight 290 lb 12.635 oz Most Recent Monitor Data Heart Rate from ECG 83 NIBP 188/93 NIBP BP-Mean 124 Respiration from ECG 29 SpO2 94 I&O: 04/21/19 04/22/19 04/23/19 06:59 06:59 06:59 Intake Total 30040 2172 1266 Output Total 8472 6322 0126 Balance 53730 -2233 -1274 Result Diagrams: 04/22/19 04:12 04/22/19 04:12 Additional Labs: Microbiology 04/11/19 18:55 Venous blood - Left Hand Blood Culture - Final NO GROWTH IN 5 DAYS 04/11/19 18:46 Venous blood - Right Hand Blood Culture - Final NO GROWTH IN 5 DAYS 04/07/19 07:50 Bronchial Washing Respiratory Culture - Final 04/05/19 19:29 Urine andrew catheter Urine Culture - Final NO GROWTH AT 36 HOURS 04/05/19 19:22 Venous blood - Left Hand Blood Culture - Final NO GROWTH IN 5 DAYS 04/05/19 19:15 Venous blood - Right Hand Blood Culture - Final NO GROWTH IN 5 DAYS 04/18/19 12:34 Venous blood - Left Hand Blood Culture - Preliminary NO GROWTH AT 48 HOURS 04/18/19 12:17 A-Line - Right Subclavian Vein Blood Culture - Preliminary NO GROWTH AT 48 HOURS Laboratory Tests 04/05/19 04/05/19 04/05/19 18:40 18:40 18:40 WBC 14.7 H Hgb 18.3 H Creatinine 2.50 H AST 94 H Ammonia B-Natriuretic Peptide 2036.6 H TSH 3rd Generation Cortisol Vancomycin Trough Plasma Alcohol 04/05/19 04/05/19 04/05/19 18:40 18:40 19:15 WBC Hgb Creatinine AST Ammonia 84 H B-Natriuretic Peptide TSH 3rd Generation 5.7125 H Cortisol Vancomycin Trough Plasma Alcohol Less than 10 04/05/19 04/06/19 04/06/19 23:23 03:30 03:30 WBC 12.4 H Hgb 16.6 Creatinine 2.57 H 2.53 H AST 105 H Ammonia B-Natriuretic Peptide TSH 3rd Generation Cortisol Vancomycin Trough Plasma Alcohol 04/06/19 04/06/19 04/07/19 03:30 03:30 03:30 WBC Hgb Creatinine AST 82 H Ammonia 34 B-Natriuretic Peptide TSH 3rd Generation Cortisol 16.70 Vancomycin Trough Plasma Alcohol 04/07/19 21:02 WBC Hgb Creatinine AST Ammonia B-Natriuretic Peptide TSH 3rd Generation Cortisol Vancomycin Trough 13.9 Plasma Alcohol Radiology Reviewed by me: Yes (PCXR - increased edema bilat) EKG Reviewed by me: Yes (Tele - SR) ROS - Review of Systems All systems: All other ROS were reviewed and found negative. - Medication Medications: Active Medications Generic Name Dose Route Start Last Admin Trade Name Freq PRN Reason Stop Dose Admin Acetaminophen 650 mg 04/05/19 22:14 04/17/19 05:53 Tylenol Elixir PO 650 mg Q6H PRN Administration Fever > 101 or Mild Pain Albuterol/Ipratropium 3 ml 04/06/19 01:00 04/22/19 18:52 Duoneb NEB 3 ml [id number] FAISAL Administration Apixaban 5 mg 04/22/19 21:00 04/22/19 20:04 Eliquis PO 5 mg BID FAISAL Administration Aspirin 81 mg 04/12/19 08:00 04/22/19 08:40 Aspirin Chewable PO 81 mg QAM-WM FAISAL Administration Famotidine 20 mg 04/06/19 09:00 04/22/19 08:39 Pepcid PER TUBE 20 mg DAILY FAISAL Administration Guaifenesin 400 mg 04/12/19 03:00 04/22/19 20:04 Organ-I Nr PER TUBE 400 mg 0300,0900,1500,2100 FAISAL Administration Dexmedetomidine HCl 400 mcg/ 100 mls @ 0 mls/hr 04/08/19 18:00 04/22/19 19:28 Sodium Chloride IVPB 100 mls INF FAISAL Administration Per Protocol Dextrose/Water 1,000 mls @ 25 mls/hr 04/20/19 10:17 04/22/19 15:22 D5w IV 1,000 mls .Q24H FAISAL Administration Sertraline HCl 100 mg 04/13/19 09:00 04/22/19 08:40 Zoloft PER TUBE 100 mg DAILY FAISAL Administration Sodium Chloride 10 ml 04/07/19 21:00 04/22/19 20:05 Flush - Normal Saline IVF 10 ml Q12HR FAISAL Administration Sodium Chloride 10 ml 04/07/19 09:55 04/12/19 11:42 Flush - Normal Saline IVF 10 ml PRN PRN Administration Saline Flush - Exam ill appearing (Trach in place) Eye: PERRL, anicteric sclera ENT: normocephalic atraumatic, no oropharyngeal lesions Neck: supple, symmetric, no JVD, no lymphadenopathy (Trach in place) Heart: RRR, no murmur, no gallops, no rubs Respiratory: no wheezes, no tachypnea, rhonchi Gastrointestinal: soft, non-distended, normal bowel sounds (Andrew in place) Extremities: no cyanosis, 1+ LE edema Skin: normal turgor Hosp A/P (1) Acute respiratory failure with hypoxia and hypercapnia Code(s): J96.01 - ACUTE RESPIRATORY FAILURE WITH HYPOXIA; J96.02 - ACUTE RESPIRATORY FAILURE WITH HYPERCAPNIA Status: Acute Plan: Continue slow wean on mech ventilation, Trach in place (2) Atelectasis of left lung Code(s): J98.11 - ATELECTASIS Status: Acute Plan: s/p mucus plug evacuation, improved aeration (3) Acute diastolic heart failure, NYHA class 3 Code(s): I50.31 - ACUTE DIASTOLIC (CONGESTIVE) HEART FAILURE Status: Acute Plan: Continue Lasix and monitor I/O's, daily weight (4) Pneumonia Code(s): J18.9 - PNEUMONIA, UNSPECIFIED ORGANISM Status: Acute Qualifiers: Laterality: left Plan: Resolved (5) Morbid obesity Code(s): E66.01 - MORBID (SEVERE) OBESITY DUE TO EXCESS CALORIES Status: Chronic (6) TASHIA (acute kidney injury) Code(s): N17.9 - ACUTE KIDNEY FAILURE, UNSPECIFIED Status: Acute Plan: Improved with volume mgmt and modification to medical regimen, avoid nephrotoxic meds and limit contrast exposure - Plan PT/OT, social work supervisor, speech therapy, respiratory therapy Continue slow wean off mech ventilation PT/OT for ROM exercises Lasix IV for diuresis Continue Prednisone AM lab: BMP, Mg++, PO3
[2019-04-23] MEDS: guaiFENesin 200 MG TAB PER TUBE SCH ×4 (04:45→20:09)
[2019-04-23 04:54] LABS: Anion Gap 13 mmol/L (10-20); BUN (Urea Nitrogen) 65 mg/dL (8.4-25.7); Calc. Creatinine Clearance 108 mL/min (70-130); Calcium 9.8 mg/dL (7.8-10.44); Carbon Dioxide 24 mmol/L (22-29); Chloride 111 mmol/L (98-107); Estimated GFR-MDRD 53; Glucose 114 mg/dL (70-105); Magnesium 2.3 mg/dL (1.6-2.6); Phosphorus 4.5 mg/dL (2.3-4.7); Potassium 4.3 mmol/L (3.5-5.1); Sodium 144 mmol/L (136-145)
[2019-04-23] MEDS: Aspirin Chewable 81 MG TAB PO SCH (09:17)
[2019-04-23] MEDS: Famotidine 40 MG/5 ML Oral Suspension PER TUBE SCH (09:17)
[2019-04-23] MEDS: Apixaban 5 MG TAB PO SCH ×2 (09:17→20:08)
--- NOTE | 2019-04-23 12:49 | PRG ---
DATE OF SERVICE: 04/23/2019 SERVICE: Pulmonary Medicine. INTERVAL HISTORY: The patient is doing outstanding on pressure support ventilation. He has been weaned down to pressure support of 9, and a FiO2 of 30%. He indicates having no difficulties with his respirations. Otherwise, there has been no interval change to his condition. PHYSICAL EXAMINATION: VITAL SIGNS: Afebrile, pulse 73, blood pressure 156/85, respirations 17, and saturation 97% on 30% FiO2 and PEEP of 5. HEENT: Normocephalic and atraumatic. Sclerae white. Conjunctivae pink. Oral mucosa is moist without lesions. LUNGS: Decent air entry. There is no prolonged expiratory phase. No wheezing or crackles are appreciated. HEART: Normal rate. Regular. ABDOMEN: Soft, nontender, and nondistended. Bowel sounds are positive. MUSCULOSKELETAL: No cyanosis or clubbing. There is no pitting throughout. NEUROLOGIC: Grossly nonfocal. LABORATORY DATA: Creatinine downtrending to 1.38. Basic metabolic profile is otherwise unremarkable. Magnesium and phosphorus are well within the normal limits. BUN has improved to 65. All blood cultures and other culture results are negative to date. ASSESSMENT: 1. Acute hypoxic respiratory failure, resolving. 2. Acute on chronic diastolic heart failure, improving. 3. Acute kidney injury on chronic kidney disease 3, resolved. 4. Deep venous thrombosis with presumed pulmonary embolism. 5. Morbid obesity. 6. Recent pulseless electrical activity arrest with recovery of neurologic function. DISCUSSION AND PLAN: We will initiate T-collar trials. I will put him on 3 times daily and increase as tolerated. I would like him on pressure support ventilation for at least one more night. We will continue our mobilization efforts through time. We are going to allow him to continue to auto diurese. I will give him a laboratory holiday tomorrow morning. Job ID: [id number]
[2019-04-23] MEDS: Loperamide HCl 2 MG CAP PO PRN ×2 (15:24→20:09)
[2019-04-23] MEDS: Dextrose 5% in Water 1,000 ML IV SCH (15:25)
--- NOTE | 2019-04-23 19:16 | PDOC.HOSPP ---
- Subjective Subjective: f/u resp failure with trach collar on FIO2 35%. More awake and alert following simple commands, sat up in bed with PT today. - Objective Vital Signs & Weight: Vital Signs (12 hours) Temp Pulse Pulse Pulse Resp BP BP 04/23/19 18:33 67 25 H 04/23/19 16:00 98.4 F 04/23/19 13:12 107 H 111 H 147/87 H 149/92 H 04/23/19 12:58 77 27 H 04/23/19 12:00 98.4 F 04/23/19 10:00 23 H 04/23/19 09:20 74 139/74 04/23/19 08:00 98.4 F 24 H Pulse Ox Pulse Ox Pulse Ox 04/23/19 18:33 96 04/23/19 16:00 04/23/19 13:12 102 H 91 L 04/23/19 12:58 91 L 04/23/19 12:00 04/23/19 10:00 04/23/19 09:20 04/23/19 08:00 94 L Weight Admit Weight 319 lb 10.7 oz Weight 279 lb 5.211 oz Most Recent Monitor Data Heart Rate from ECG 67 NIBP 140/81 NIBP BP-Mean 100 Respiration from ECG 23 SpO2 97 I&O: 04/22/19 04/23/19 04/24/19 06:59 06:59 06:59 Intake Total 2172 2776 1249 Output Total 2276 3930 1560 Balance -2233 -1154 -311 Result Diagrams: 04/22/19 04:12 04/23/19 04:17 Additional Labs: Microbiology 04/07/19 07:50 Bronchial Washing Respiratory Culture - Final 04/05/19 19:29 Urine andrew catheter Urine Culture - Final NO GROWTH AT 36 HOURS 04/05/19 19:22 Venous blood - Left Hand Blood Culture - Final NO GROWTH IN 5 DAYS 04/05/19 19:15 Venous blood - Right Hand Blood Culture - Final NO GROWTH IN 5 DAYS Laboratory Tests 04/05/19 04/05/19 04/05/19 18:40 18:40 18:40 WBC 14.7 H Hgb 18.3 H Creatinine 2.50 H AST 94 H Ammonia B-Natriuretic Peptide 2036.6 H TSH 3rd Generation Cortisol Vancomycin Trough Plasma Alcohol 04/05/19 04/05/1919 18:40 18:40 19:15 WBC Hgb Creatinine AST Ammonia 84 H B-Natriuretic Peptide TSH 3rd Generation 5.7125 H Cortisol Vancomycin Trough Plasma Alcohol Less than 10 04/05/19 04/06/19 04/06/19 23:23 03:30 03:30 WBC 12.4 H Hgb 16.6 Creatinine 2.57 H 2.53 H AST 105 H Ammonia B-Natriuretic Peptide TSH 3rd Generation Cortisol Vancomycin Trough Plasma Alcohol 04/06/19 04/06/19 04/07/19 03:30 03:30 03:30 WBC Hgb Creatinine AST 82 H Ammonia 34 B-Natriuretic Peptide TSH 3rd Generation Cortisol 16.70 Vancomycin Trough Plasma Alcohol 04/07/19 21:02 WBC Hgb Creatinine AST Ammonia B-Natriuretic Peptide TSH 3rd Generation Cortisol Vancomycin Trough 13.9 Plasma Alcohol EKG Reviewed by me: Yes (Tele - SR) ROS - Review of Systems All systems: All other ROS were reviewed and found negative. - Medication Medications: Active Medications Generic Name Dose Route Start Last Admin Trade Name Freq PRN Reason Stop Dose Admin Acetaminophen 650 mg 04/05/19 22:14 04/17/19 05:53 Tylenol Elixir PO 650 mg Q6H PRN Administration Fever > 101 or Mild Pain Albuterol/Ipratropium 3 ml 04/06/19 01:00 04/23/19 18:33 Duoneb NEB 3 ml [id number] FAISAL Administration Apixaban 5 mg 04/22/19 21:00 04/23/19 09:17 Eliquis PO 5 mg BID FAISAL Administration Aspirin 81 mg 04/12/19 08:00 04/23/19 09:17 Aspirin Chewable PO 81 mg QAM-WM FAISAL Administration Famotidine 20 mg 04/06/19 09:00 04/23/19 09:17 Pepcid PER TUBE 20 mg DAILY FAISAL Administration Guaifenesin 400 mg 04/12/19 03:00 04/23/19 15:24 Organ-I Nr PER TUBE 400 mg 0300,0900,1500,2100 FAISAL Administration Dexmedetomidine HCl 400 mcg/ 100 mls @ 0 mls/hr 04/08/19 18:00 04/23/19 18:44 Sodium Chloride IVPB 100 mls INF FAISAL Administration Per Protocol Dextrose/Water 1,000 mls @ 25 mls/hr 04/20/19 10:17 04/23/19 15:25 D5w IV Not Given .Q24H FAISAL Loperamide HCl 2 mg 04/23/19 12:22 04/23/19 15:24 Imodium PO 2 mg PRN PRN Administration Diarrhea/Loose Stools Sertraline HCl 100 mg 04/13/19 09:00 04/23/19 09:18 Zoloft PER TUBE 100 mg DAILY FAISAL Administration Sodium Chloride 10 ml 04/07/19 21:00 04/23/19 09:18 Flush - Normal Saline IVF 10 ml Q12HR FAISAL Administration Sodium Chloride 10 ml 04/07/19 09:55 04/12/19 11:42 Flush - Normal Saline IVF 10 ml PRN PRN Administration Saline Flush - Exam awake alert Eye: PERRL, anicteric sclera ENT: normocephalic atraumatic, no oropharyngeal lesions, dry oral mucosa Neck: supple, symmetric, no JVD (Trach in place with T-collar), no Thyromegaly Heart: RRR, no murmur, no gallops, no rubs Respiratory: CTAB, no wheezes, no rales, no ronchi Gastrointestinal: soft, non-tender, non-distended, normal bowel sounds, no palpable masses (Andrew in place with clear urine) Extremities: no cyanosis, no clubbing, no edema Skin: normal turgor, no lesions Neurological: CN's grossly intact, no new deficit Musculoskeletal: generalized weakness Hosp A/P (1) Acute respiratory failure with hypoxia and hypercapnia Code(s): J96.01 - ACUTE RESPIRATORY FAILURE WITH HYPOXIA; J96.02 - ACUTE RESPIRATORY FAILURE WITH HYPERCAPNIA Status: Acute Plan: T-collar trials with FIO2 @ 35%, continue pulmonary support (2) Atelectasis of left lung Code(s): J98.11 - ATELECTASIS Status: Acute (3) Pneumonia Code(s): J18.9 - PNEUMONIA, UNSPECIFIED ORGANISM Status: Acute Qualifiers: Laterality: left Plan: Improved, continue general pulmonary support (4) Morbid obesity Code(s): E66.01 - MORBID (SEVERE) OBESITY DUE TO EXCESS CALORIES Status: Chronic (5) TASHIA (acute kidney injury) Code(s): N17.9 - ACUTE KIDNEY FAILURE, UNSPECIFIED Status: Acute Plan: Improved, avoid nephrotoxic meds and limit contrast exposure - Plan PT/OT, manager social work, respiratory therapy, DVT proph w/SCDs Continue critical support Progressive trials of T-collar OOB with PT, neuro chair Nutritional support with Vital High Protein LTAC/Rehab options
[2019-04-23] MEDS: Acetaminophen 650 MG/20.3 ML UDCUP PO PRN (20:09)
[2019-04-24] MEDS: Dextrose 5% in Water 1,000 ML IV SCH ×2 (02:11→10:20)
[2019-04-24] MEDS: guaiFENesin 200 MG TAB PER TUBE SCH ×4 (04:46→20:03)
[2019-04-24] MEDS: Aspirin Chewable 81 MG TAB PO SCH (08:32)
[2019-04-24] MEDS: Apixaban 5 MG TAB PO SCH ×2 (08:32→20:04)
[2019-04-24] MEDS: predniSONE 20 MG TAB PO SCH (08:32)
[2019-04-24] MEDS: Calcium Polycarbophil 625 MG TAB PO SCH (08:33)
[2019-04-24] MEDS: Famotidine 40 MG/5 ML Oral Suspension PER TUBE SCH (08:33)
[2019-04-24] MEDS: Loperamide HCl 2 MG CAP PO PRN ×2 (09:14→20:03)
--- NOTE | 2019-04-24 12:53 | PRG ---
DATE OF SERVICE: 04/24/2019 SERVICE: Pulmonary Medicine. INTERVAL HISTORY: The patient is doing outstanding. He ended up being on pressure support ventilation all day yesterday. We rested him on mechanical ventilator last night with pressure support ventilation. This morning, he is back on T-collar trial. He has no complaints of nausea or vomiting. His strength is improving day by day. He has been weaned down to room air. Otherwise, there has been no interval change to his condition. PHYSICAL EXAMINATION: VITAL SIGNS: Afebrile, pulse 79, blood pressure 147/94, respirations 22, saturation 95% on room air. GENERAL: The patient is awake and alert, in no apparent distress. LUNGS: Decent air entry. No prolonged expiratory phase or wheezing present. HEART: Normal rate, regular. ABDOMEN: Soft, nontender, and nondistended. Bowel sounds are positive. MUSCULOSKELETAL: No cyanosis or clubbing. There is no pitting in the bilateral lower extremities. NEUROLOGIC: Grossly nonfocal. ASSESSMENT: 1. Acute hypoxic respiratory failure, resolving. 2. [id number] diastolic heart failure, resolved to baseline. 3. Acute kidney injury on chronic kidney disease 3, resolved. 4. Deep venous thrombosis with presumed pulmonary embolism. 5. Morbid obesity. DISCUSSION AND PLAN: We will discontinue pressure support ventilation. He is currently stable for transition out of the hospital. Case Management consultation will be placed for the patient to travel to an LTAC and/or a senior care facility. This will likely occur early next week. Job ID: [id number]
[2019-04-24] MEDS: clonazePAM 0.5 MG TAB PO SCH (20:04)
--- NOTE | 2019-04-24 20:17 | PDOC.HOSPP ---
- Subjective Subjective: f/u for resp failure on T-collar trials and weaning off mech ventilation. No new issues. More awake and interactive. - Objective Vital Signs & Weight: Vital Signs (12 hours) Temp Pulse Resp Pulse Ox 04/24/19 20:00 98.2 F 04/24/19 18:31 68 23 H 97 04/24/19 16:00 97.9 F 04/24/19 13:45 70 26 H 97 04/24/19 12:00 98.4 F 04/24/19 09:00 82 Weight Admit Weight 319 lb 10.7 oz Weight 274 lb 4.081 oz Most Recent Monitor Data Heart Rate from ECG 66 NIBP 151/87 NIBP BP-Mean 108 Respiration from ECG 15 SpO2 99 I&O: 04/23/19 04/24/19 04/25/19 06:59 06:59 06:59 Intake Total 2776 4387 1234 Output Total 3930 0230 1745 [facility] -[phone] Result Diagrams: 04/22/19 04:12 04/23/19 04:17 Additional Labs: Microbiology 04/07/19 07:50 Bronchial Washing Respiratory Culture - Final 04/05/19 19:29 Urine andrew catheter Urine Culture - Final NO GROWTH AT 36 HOURS 04/05/19 19:22 Venous blood - Left Hand Blood Culture - Final NO GROWTH IN 5 DAYS 04/05/19 19:15 Venous blood - Right Hand Blood Culture - Final NO GROWTH IN 5 DAYS Laboratory Tests 04/05/19 04/05/19 04/05/19 18:40 18:40 18:40 WBC 14.7 H Hgb 18.3 H Creatinine 2.50 H AST 94 H Ammonia B-Natriuretic Peptide 2036.6 H TSH 3rd Generation Cortisol Vancomycin Trough Plasma Alcohol 04/05/19 04/05/19 04/05/19 18:40 18:40 19:15 WBC Hgb Creatinine AST Ammonia 84 H B-Natriuretic Peptide TSH 3rd Generation 5.7125 H Cortisol Vancomycin Trough Plasma Alcohol Less than 10 04/05/19 04/06/19 04/06/19 23:23 03:30 03:30 WBC 12.4 H Hgb 16.6 Creatinine 2.57 H 2.53 H AST 105 H Ammonia B-Natriuretic Peptide TSH 3rd Generation Cortisol Vancomycin Trough Plasma Alcohol 04/06/19 04/06/19 04/07/19 03:30 03:30 03:30 WBC Hgb Creatinine AST 82 H Ammonia 34 B-Natriuretic Peptide TSH 3rd Generation Cortisol 16.70 Vancomycin Trough Plasma Alcohol 04/07/19 21:02 WBC Hgb Creatinine AST Ammonia B-Natriuretic Peptide TSH 3rd Generation Cortisol Vancomycin Trough 13.9 Plasma Alcohol EKG Reviewed by me: Yes (Tele - SR) ROS - Review of Systems All systems: All other ROS were reviewed and found negative. - Medication Medications: Active Medications Generic Name Dose Route Start Last Admin Trade Name Freq PRN Reason Stop Dose Admin Acetaminophen 650 mg 04/05/19 22:14 04/23/19 20:09 Tylenol Elixir PO 650 mg Q6H PRN Administration Fever > 101 or Mild Pain Albuterol/Ipratropium 3 ml 04/06/19 01:00 04/24/19 18:31 Duoneb NEB 3 ml [id number] FAISAL Administration Apixaban 5 mg 04/22/19 21:00 04/24/19 20:04 Eliquis PO 5 mg BID FAISAL Administration Aspirin 81 mg 04/12/19 08:00 04/24/19 08:32 Aspirin Chewable PO 81 mg QAM-WM FAISAL Administration Calcium Polycarbophil 625 mg 04/24/19 09:00 04/24/19 08:33 Fibercon PO 625 mg DAILY FAISAL Administration Clonazepam 0.5 mg 04/24/19 21:00 04/24/19 20:04 Klonopin PO 0.5 mg BID FAISAL Administration Diltiazem HCl 120 mg 04/24/19 09:00 04/24/19 09:00 Cardizem Cd PO Not Given DAILY FAISAL Guaifenesin 400 mg 04/12/19 03:00 04/24/19 20:03 Organ-I Nr PER TUBE 400 mg 0300,0900,1500,2100 FAISAL Administration Dexmedetomidine HCl 400 mcg/ 100 mls @ 0 mls/hr 04/08/19 18:00 04/24/19 17:37 Sodium Chloride IVPB 100 mls INF FAISAL Administration Per Protocol Dextrose/Water 1,000 mls @ 25 mls/hr 04/20/19 10:17 04/24/19 10:20 D5w IV 1,000 mls .Q24H FAISAL Administration Loperamide HCl 2 mg 04/23/19 12:22 04/24/19 20:03 Imodium PO 2 mg PRN PRN Administration Diarrhea/Loose Stools Prednisone 20 mg 04/24/19 09:00 04/24/19 08:32 Prednisone PO 20 mg Q48H FAISAL Administration Quetiapine Fumarate 25 mg 04/24/19 21:00 04/24/19 20:03 Seroquel PO 25 mg BID FAISAL Administration Sertraline HCl 100 mg 04/13/19 09:00 04/24/19 08:32 Zoloft PER TUBE 100 mg DAILY FAISAL Administration Sodium Chloride 10 ml 04/07/19 21:00 04/24/19 08:34 Flush - Normal Saline IVF 10 ml Q12HR FAISAL Administration Sodium Chloride 10 ml 04/07/19 09:55 04/12/19 11:42 Flush - Normal Saline IVF 10 ml PRN PRN Administration Saline Flush - Exam NAD, awake alert Eye: PERRL, anicteric sclera ENT: normocephalic atraumatic, no oropharyngeal lesions Neck: supple, symmetric, no JVD, no Thyromegaly Heart: RRR, no murmur (Trach in place), no gallops, no rubs Respiratory: CTAB, no wheezes, no rales, no ronchi Gastrointestinal: soft, non-tender, non-distended, normal bowel sounds (obese) Extremities: no cyanosis, no clubbing, no edema Skin: normal turgor, no lesions Neurological: no new deficit Musculoskeletal: generalized weakness Hosp A/P (1) Acute respiratory failure with hypoxia and hypercapnia Code(s): J96.01 - ACUTE RESPIRATORY FAILURE WITH HYPOXIA; J96.02 - ACUTE RESPIRATORY FAILURE WITH HYPERCAPNIA Status: Acute Plan: Continue T-collar with FIO2 35% (2) Atelectasis of left lung Code(s): J98.11 - ATELECTASIS Status: Acute Plan: Continue T-collar, Duonebs, Prednisone (3) Pneumonia Code(s): J18.9 - PNEUMONIA, UNSPECIFIED ORGANISM Status: Acute Qualifiers: Laterality: left Plan: Improved and resolving (4) Morbid obesity Code(s): E66.01 - MORBID (SEVERE) OBESITY DUE TO EXCESS CALORIES Status: Chronic (5) TASHIA (acute kidney injury) Code(s): N17.9 - ACUTE KIDNEY FAILURE, UNSPECIFIED Status: Acute Plan: Improved, avoid nephrotoxic meds and limit contrast exposure - Plan PT/OT, social media job titles, speech therapy, respiratory therapy, DVT proph w/SCDs Continue pulmonary supportive mgmt continue Prednisone/Duonebs PT/OT for mobilization/up in bed CM for LTAC/SNF options AM lab: BMP, CBC, Mg++
[2019-04-25] MEDS: guaiFENesin 200 MG TAB PER TUBE SCH ×4 (04:06→21:28)
[2019-04-25 05:29] LABS: #Eosinphils 0.4 thou/uL (0.0-0.7); #Lymphocytes 1.5 thou/uL (1.20-3.40); #Monocytes 0.5 thou/uL (0.11-0.59); #Neutrophils 5.8 thou/uL (1.40-6.50); %Basophils 0.4 % (0.0-1.0); %Eosinophils 4.4 % (0.0-10.0); %Lymphocytes 17.9 % (21.0-51.0); %Monocytes 5.6 % (0.0-10.0); %Neutrophils 71.7 % (42.0-75.0); Hemoglobin 14.7 g/dL (14.0-18.0); Mean Corpuscular Hemoglobin 27.6 pg (27.0-31.0); Mean Corpuscular Volume 89.3 fL (78.0-98.0); Mean Platelet Volume 8.7 fL (7.4-10.4); Platelet Count 324 thou/uL (130-400); RBC Distribution Width 15.5 % (11.5-14.5); Red Blood Cell (RBC) Count 5.33 mill/uL (4.70-6.10); White Blood Cell (WBC) Count 8.1 thou/uL (4.8-10.8)
[2019-04-25 05:46] LABS: Phosphorus 5.3 mg/dL (2.3-4.7)
[2019-04-25 05:50] LABS: Anion Gap 15 mmol/L (10-20); BUN (Urea Nitrogen) 66 mg/dL (8.4-25.7); Calc. Creatinine Clearance 113 mL/min (70-130); Calcium 10.5 mg/dL (7.8-10.44); Carbon Dioxide 23 mmol/L (22-29); Chloride 112 mmol/L (98-107); Estimated GFR-MDRD 60; Glucose 92 mg/dL (70-105); Magnesium 2.2 mg/dL (1.6-2.6); Potassium 5.1 mmol/L (3.5-5.1); Sodium 145 mmol/L (136-145)
--- NOTE | 2019-04-25 08:35 | PDOC.HOSPP ---
- Subjective Subjective: Nursing reports no new overnight events. Trach downsizing today with plans to work with PRESS MAINTAINER. - Objective Vital Signs & Weight: Vital Signs (12 hours) Temp Pulse Resp Pulse Ox 04/25/19 07:26 77 24 H 04/25/19 04:00 98.6 F 04/25/19 00:14 63 18 99 Weight Admit Weight 319 lb 10.7 oz Weight 274 lb 4.081 oz Most Recent Monitor Data Heart Rate from ECG 79 NIBP 160/105 NIBP BP-Mean 123 Respiration from ECG 24 SpO2 95 I&O: 04/24/19 04/25/19 04/26/19 06:59 06:59 06:59 Intake Total 3177 2938 Output Total 3720 3075 Balance -543 -137 Result Diagrams: 04/25/19 04:48 04/25/19 04:48 Additional Labs: Microbiology 04/07/19 07:50 Bronchial Washing Respiratory Culture - Final 04/05/19 19:29 Urine andrew catheter Urine Culture - Final NO GROWTH AT 36 HOURS 04/05/19 19:22 Venous blood - Left Hand Blood Culture - Final NO GROWTH IN 5 DAYS 04/05/19 19:15 Venous blood - Right Hand Blood Culture - Final NO GROWTH IN 5 DAYS Laboratory Tests 04/05/19 04/05/19 04/05/19 18:40 18:40 18:40 WBC 14.7 H Hgb 18.3 H Creatinine 2.50 H AST 94 H Ammonia B-Natriuretic Peptide 2036.6 H TSH 3rd Generation Cortisol Vancomycin Trough Plasma Alcohol 04/05/19 04/05/19 04/05/19 18:40 18:40 19:15 WBC Hgb Creatinine AST Ammonia 84 H B-Natriuretic Peptide TSH 3rd Generation 5.7125 H Cortisol Vancomycin Trough Plasma Alcohol Less than 10 04/05/19 04/06/19 04/06/19 23:23 03:30 03:30 WBC 12.4 H Hgb 16.6 Creatinine 2.57 H 2.53 H AST 105 H Ammonia B-Natriuretic Peptide TSH 3rd Generation Cortisol Vancomycin Trough Plasma Alcohol 04/06/19 04/06/19 04/07/19 03:30 03:30 03:30 WBC Hgb Creatinine AST 82 H Ammonia 34 B-Natriuretic Peptide TSH 3rd Generation Cortisol 16.70 Vancomycin Trough Plasma Alcohol 04/07/19 21:02 WBC Hgb Creatinine AST Ammonia B-Natriuretic Peptide TSH 3rd Generation Cortisol Vancomycin Trough 13.9 Plasma Alcohol EKG Reviewed by me: Yes (Tele - SR) ROS - Review of Systems All systems: All other ROS were reviewed and found negative. - Medication Medications: Active Medications Generic Name Dose Route Start Last Admin Trade Name Freq PRN Reason Stop Dose Admin Acetaminophen 650 mg 04/05/19 22:14 04/23/19 20:09 Tylenol Elixir PO 650 mg Q6H PRN Administration Fever > 101 or Mild Pain Albuterol/Ipratropium 3 ml 04/06/19 01:00 04/25/19 07:26 Duoneb NEB 3 ml [id number] FAISAL Administration Apixaban 5 mg 04/22/19 21:00 04/24/19 20:04 Eliquis PO 5 mg BID FAISAL Administration Aspirin 81 mg 04/12/19 08:00 04/24/19 08:32 Aspirin Chewable PO 81 mg QAM-WM FAISAL Administration Calcium Polycarbophil 625 mg 04/24/19 09:00 04/24/19 08:33 Fibercon PO 625 mg DAILY FAISAL Administration Clonazepam 0.5 mg 04/24/19 21:00 04/24/19 20:04 Klonopin PO 0.5 mg BID FAISAL Administration Diltiazem HCl 120 mg 04/24/19 09:00 04/24/19 09:00 Cardizem Cd PO Not Given DAILY FAISAL Guaifenesin 400 mg 04/12/19 03:00 04/25/19 04:06 Organ-I Nr PER TUBE 400 mg 0300,0900,1500,2100 FAISAL Administration Loperamide HCl 2 mg 04/23/19 12:22 04/24/19 20:03 Imodium PO 2 mg PRN PRN Administration Diarrhea/Loose Stools Prednisone 20 mg 04/24/19 09:00 04/24/19 08:32 Prednisone PO 20 mg Q48H FAISAL Administration Quetiapine Fumarate 25 mg 04/24/19 21:00 04/24/19 20:03 Seroquel PO 25 mg BID FAISAL Administration Sertraline HCl 100 mg 04/13/19 09:00 04/24/19 08:32 Zoloft PER TUBE 100 mg DAILY FAISAL Administration Sodium Chloride 10 ml 04/07/19 21:00 04/25/19 01:08 Flush - Normal Saline IVF Not Given Q12HR FAISAL Sodium Chloride 10 ml 04/07/19 09:55 04/12/19 11:42 Flush - Normal Saline IVF 10 ml PRN PRN Administration Saline Flush - Exam NAD, awake alert Eye: PERRL, anicteric sclera ENT: normocephalic atraumatic, no oropharyngeal lesions Neck: supple, symmetric, no JVD, no Thyromegaly (Trach in place) Heart: RRR, no murmur, no gallops, no rubs Respiratory: CTAB, no wheezes, no rales, no ronchi Gastrointestinal: soft, non-tender, non-distended, normal bowel sounds Extremities: no cyanosis, no clubbing, no edema Skin: normal turgor, no lesions Neurological: CN's grossly intact, no new deficit Hosp A/P (1) Acute respiratory failure with hypoxia and hypercapnia Code(s): J96.01 - ACUTE RESPIRATORY FAILURE WITH HYPOXIA; J96.02 - ACUTE RESPIRATORY FAILURE WITH HYPERCAPNIA Status: Acute Plan: Trach downsized today, plan to work with PRESS MAINTAINER today (2) Atelectasis of left lung Code(s): J98.11 - ATELECTASIS Status: Acute Plan: Improved, continue pulmonary support, upright in bed, Duonebs (3) Pneumonia Code(s): J18.9 - PNEUMONIA, UNSPECIFIED ORGANISM Status: Acute Qualifiers: Laterality: left Plan: Resolving, continue pulmonary support (4) Morbid obesity Code(s): E66.01 - MORBID (SEVERE) OBESITY DUE TO EXCESS CALORIES Status: Chronic (5) TASHIA (acute kidney injury) Code(s): N17.9 - ACUTE KIDNEY FAILURE, UNSPECIFIED Status: Acute Plan: Improving, continue supportive mgmt, avoid nephrotoxic meds and limit contrast exposure - Plan PT/OT, social media developer, speech therapy, respiratory therapy, DVT proph w/SCDs PRESS MAINTAINER evaluation today Upright in bed/chair Continue Prednisone CM for LTAC/SNF options PT/OT for mobilization
--- NOTE | 2019-04-25 08:36 | PRG ---
DATE OF SERVICE: 04/25/2019 SERVICE: Pulmonary Medicine. INTERVAL HISTORY: The patient is doing fine from Respiratory standpoint. Breathing comfortably. He has no complaints of chest pain, nausea, or vomiting. He is tolerating tube feeds just fine. Otherwise, there has been no interval change to his condition. He has been off mechanical ventilation for a couple of days now. PHYSICAL EXAMINATION: VITAL SIGNS: Afebrile, pulse 77, blood pressure 160/105, respirations 24, saturation 95% on room air. GENERAL: The patient is awake and alert, in no apparent distress. LUNGS: Decent air entry. There is no prolonged expiratory phase or wheezing present. HEART: Normal rate and regular. ABDOMEN: Soft, nontender, nondistended. Bowel sounds are positive. MUSCULOSKELETAL: No cyanosis or clubbing. No pitting in the bilateral lower extremities. NEUROLOGIC: Nonfocal. LABORATORY DATA: WBC 8.1, hemoglobin 14.7, and platelets 324,000. Creatinine 1.24, continuing to improve. Basic metabolic profile is otherwise unremarkable, except for a sodium that is gently up trending to 145. Phosphorus 5.3. ASSESSMENT: 1. Acute hypoxic respiratory failure, resolved. 2. Acute on chronic diastolic heart failure, resolved. 3. Acute kidney injury on chronic kidney disease 3, resolved. 4. Deep vein thrombosis with presumed pulmonary embolism. 5. Morbid obesity. 6. Status post tracheostomy and percutaneous endoscopic gastrostomy tube placement. DISCUSSION AND PLAN: I will downsize his tracheostomy to a 6.0 fenestrated cuffless Shiley. We will discontinue his D5 water and increase his free water flushes. Pulmonary/Critical Care will continue to follow along while the patient remains in-house. We can continue our mobilization efforts, but from a purely Respiratory perspective, he is currently stable for transition home. Job ID: [id number]
[2019-04-25] MEDS: Aspirin Chewable 81 MG TAB PO SCH (08:54)
[2019-04-25] MEDS: clonazePAM 0.5 MG TAB PO SCH ×2 (08:54→21:28)
[2019-04-25] MEDS: Loperamide HCl 2 MG CAP PO PRN (08:55)
[2019-04-25] MEDS: Calcium Polycarbophil 625 MG TAB PO SCH (08:55)
[2019-04-25] MEDS: Apixaban 5 MG TAB PO SCH ×2 (08:59→21:35)
--- NOTE | 2019-04-25 15:23 | OP ---
DATE OF PROCEDURE: 04/25/2019 SERVICE: Pulmonary Medicine. PROCEDURE PERFORMED: Tracheostomy exchange. MEDICATIONS USED: None. DESCRIPTION OF PROCEDURE: The existing tracheostomy sutures were removed. The tracheostomy was subsequently pulled out in one motion. There was no significant bleeding. The patient seemed to tolerate this just fine. That being said, gentle traction was placed on the trach ties. A 6.0 Shiley fenestrated cuffless tracheostomy was subsequently inserted. There was good fit. The patient tolerated the procedure well without any immediate complication. ESTIMATED BLOOD LOSS: None. COMPLICATIONS: None. Job ID: [id number]
[2019-04-26] MEDS: guaiFENesin 200 MG TAB PER TUBE SCH ×4 (02:42→20:13)
[2019-04-26] MEDS: clonazePAM 0.5 MG TAB PO SCH ×2 (08:19→20:13)
[2019-04-26] MEDS: predniSONE 20 MG TAB PO SCH (08:19)
[2019-04-26] MEDS: Calcium Polycarbophil 625 MG TAB PO SCH (08:20)
[2019-04-26] MEDS: Aspirin Chewable 81 MG TAB PO SCH (08:20)
[2019-04-26] MEDS: Apixaban 5 MG TAB PO SCH ×2 (08:23→20:13)
--- NOTE | 2019-04-26 10:01 | PRG ---
DATE OF SERVICE: 04/26/2019 SUBJECTIVE: He is on trach #6 cuffless. OBJECTIVE: GENERAL: Awake, responsive, not much verbal communication, but appears to be in no distress, sitting on the side of the bed. VITAL SIGNS: 98% sats, blood pressure 120/65, pulse 75, respiratory rate 15. CHEST: Anterior rhonchi. CARDIAC: Normal S1 and S2. No gallops. ABDOMEN: No masses. IMPRESSION: Morbid obesity, respiratory failure, trach, encephalopathy, congestive heart failure, renal failure. PLAN: Continue supportive care, PT, eventually placement. Job ID: [id number]
--- NOTE | 2019-04-26 15:23 | PDOC.HOSPP ---
- Subjective Subjective: Patient has trach in place. No phonation, but interacts and mouths words. Appears to deny any problems. - Objective Vital Signs & Weight: Vital Signs (12 hours) Temp Pulse Resp Pulse Ox 04/26/19 15:00 98.4 F 04/26/19 12:35 89 24 H 04/26/19 11:00 98.9 F 04/26/19 07:50 98 04/26/19 07:49 98 24 H 04/26/19 07:24 99 04/26/19 07:00 98.6 F Weight Admit Weight 319 lb 10.7 oz Weight 275 lb 9.245 oz Most Recent Monitor Data Heart Rate from ECG 88 NIBP 154/91 NIBP BP-Mean 112 Respiration from ECG 25 SpO2 96 I&O: 04/25/19 04/26/19 04/27/19 06:59 06:59 06:59 Intake Total 2938 1586 200 Output Total 3075 2520 Balance -137 -934 200 Result Diagrams: 04/25/19 04:48 04/25/19 04:48 ROS - Review of Systems All systems: All other ROS were reviewed and found negative. - Medication Medications: Active Medications Generic Name Dose Route Start Last Admin Trade Name Freq PRN Reason Stop Dose Admin Acetaminophen 650 mg 04/05/19 22:14 04/23/19 20:09 Tylenol Elixir PO 650 mg Q6H PRN Administration Fever > 101 or Mild Pain Albuterol/Ipratropium 3 ml 04/06/19 01:00 04/26/19 12:35 Duoneb NEB 3 ml [id number] FAISAL Administration Apixaban 5 mg 04/22/19 21:00 04/26/19 08:23 Eliquis PO 5 mg BID FAISAL Administration Aspirin 81 mg 04/12/19 08:00 04/26/19 08:20 Aspirin Chewable PO 81 mg QAM-WM FAISAL Administration Calcium Polycarbophil 625 mg 04/24/19 09:00 04/26/19 08:20 Fibercon PO 625 mg DAILY FAISAL Administration Clonazepam 0.5 mg 04/24/19 21:00 04/26/19 08:19 Klonopin PO 0.5 mg BID FAISAL Administration Diltiazem HCl 30 mg 04/25/19 13:00 04/26/19 12:46 Cardizem PER TUBE 30 mg QID FAISAL Administration Guaifenesin 400 mg 04/12/19 03:00 04/26/19 14:41 Organ-I Nr PER TUBE 400 mg 0300,0900,1500,2100 FAISAL Administration Loperamide HCl 2 mg 04/23/19 12:22 04/25/19 08:55 Imodium PO 2 mg PRN PRN Administration Diarrhea/Loose Stools Prednisone 20 mg 04/24/19 09:00 04/26/19 08:19 Prednisone PO 20 mg Q48H FAISAL Administration Quetiapine Fumarate 25 mg 04/24/19 21:00 04/26/19 08:19 Seroquel PO 25 mg BID FAISAL Administration Sertraline HCl 100 mg 04/13/19 09:00 04/26/19 08:20 Zoloft PER TUBE 100 mg DAILY FAISAL Administration Sodium Chloride 10 ml 04/07/19 21:00 04/26/19 08:20 Flush - Normal Saline IVF 10 ml Q12HR FAISAL Administration Sodium Chloride 10 ml 04/07/19 09:55 04/12/19 11:42 Flush - Normal Saline IVF 10 ml PRN PRN Administration Saline Flush - Exam NAD Heart: RRR, no murmur, no gallops, no rubs, normal peripheral pulses Respiratory: no wheezes, no rales, no ronchi Gastrointestinal: soft, non-tender, non-distended, normal bowel sounds, no palpable masses, no hepatomegaly, no splenomegaly, no bruit Extremities: no cyanosis, no clubbing, no edema Psychiatric: somnolent (Easily awakened and does interact.) Hosp A/P (1) Acute respiratory failure with hypoxia and hypercapnia Code(s): J96.01 - ACUTE RESPIRATORY FAILURE WITH HYPOXIA; J96.02 - ACUTE RESPIRATORY FAILURE WITH HYPERCAPNIA Status: Acute (2) Mucus plugging of bronchi Code(s): J98.09 - OTHER DISEASES OF BRONCHUS, NOT ELSEWHERE CLASSIFIED Status : Acute (3) Sepsis Code(s): A41.9 - SEPSIS, UNSPECIFIED ORGANISM Status: Acute (4) Morbid obesity Code(s): E66.01 - MORBID (SEVERE) OBESITY DUE TO EXCESS CALORIES Status: Chronic (5) TASHIA (acute kidney injury) Code(s): N17.9 - ACUTE KIDNEY FAILURE, UNSPECIFIED Status: Acute (6) Atelectasis of left lung Code(s): J98.11 - ATELECTASIS Status: Acute - Plan Renal function improved, but BUN unchanged. Doing well with downsized trach. Continue steroids and nebs. Discussed with DOLPHIN TRAINER. Increase use of speaking valve and start [place] water protocol. Continue to work toward placement.
[2019-04-27] MEDS: guaiFENesin 200 MG TAB PER TUBE SCH ×4 (03:50→21:07)
[2019-04-27 08:39] LABS: #Basophils 0.1 thou/uL (0.0-0.2); #Eosinphils 0.4 thou/uL (0.0-0.7); #Lymphocytes 1.5 thou/uL (1.20-3.40); #Monocytes 0.6 thou/uL (0.11-0.59); #Neutrophils 8.6 thou/uL (1.40-6.50); %Basophils 0.9 % (0.0-1.0); %Eosinophils 3.3 % (0.0-10.0); %Monocytes 5.7 % (0.0-10.0); %Neutrophils 77.2 % (42.0-75.0); Hemoglobin 15.3 g/dL (14.0-18.0); Mean Corpuscular HGB CONC 30.2 g/dL (32.0-36.0); Mean Corpuscular Volume 89.4 fL (78.0-98.0); Mean Platelet Volume 8.1 fL (7.4-10.4); Platelet Count 296 thou/uL (130-400); RBC Distribution Width 15.8 % (11.5-14.5); Red Blood Cell (RBC) Count 5.66 mill/uL (4.70-6.10); White Blood Cell (WBC) Count 11.1 thou/uL (4.8-10.8)
[2019-04-27 08:47] LABS: Anion Gap 16 mmol/L (10-20); BUN (Urea Nitrogen) 77 mg/dL (8.4-25.7); Calc. Creatinine Clearance 86 mL/min (70-130); Carbon Dioxide 25 mmol/L (22-29); Chloride 112 mmol/L (98-107); Estimated GFR-MDRD 46; Glucose 117 mg/dL (70-105); Potassium 5.3 mmol/L (3.5-5.1); Sodium 148 mmol/L (136-145)
--- NOTE | 2019-04-27 09:25 | PRG ---
DATE OF SERVICE: 04/27/2019 SUBJECTIVE: This morning, he is better. OBJECTIVE: GENERAL: No distress. VITAL SIGNS: Temperature 98, pulse 102, saturations are 90% on a trach collar, blood pressure 145/85. CHEST: Decreased breath sounds. No wheezing. CARDIAC: Normal S1 and S2. No gallops. ABDOMEN: No masses. LABORATORY DATA: Creatinine 1.5. White count 11,000, H and H unremarkable. IMPRESSION: Morbid obesity, azotemia prerenal, sleep apnea, secretions. PLAN: Increase free water. Continue neb treatment, PT, supportive care. Eventually placement. Job ID: [id number]
[2019-04-27] MEDS: clonazePAM 0.5 MG TAB PO SCH ×2 (09:55→21:07)
[2019-04-27] MEDS: Apixaban 5 MG TAB PO SCH ×2 (09:55→21:07)
[2019-04-27] MEDS: Calcium Polycarbophil 625 MG TAB PO SCH (09:55)
[2019-04-27] MEDS: Aspirin Chewable 81 MG TAB PO SCH (09:55)
--- NOTE | 2019-04-27 13:28 | PDOC.HOSPP ---
- Subjective Subjective: Says he is as good as he can be. - Objective Vital Signs & Weight: Vital Signs (12 hours) Temp Pulse Resp Pulse Ox 04/27/19 11:20 97.0 F L 04/27/19 10:46 93 L 04/27/19 07:31 98.2 F 04/27/19 07:30 90 L 04/27/19 07:25 102 H 27 H 90 L 04/27/19 04:26 97.9 F Weight Admit Weight 319 lb 10.7 oz Weight 261 lb 8 oz Most Recent Monitor Data Heart Rate from ECG 84 NIBP 145/78 NIBP BP-Mean 100 Respiration from ECG 24 SpO2 94 I&O: 04/26/19 04/27/19 04/28/19 06:59 06:59 06:59 Intake Total 1586 2533 125 Output Total 2520 600 Balance -934 1933 125 Result Diagrams: 04/27/19 08:09 04/27/19 08:09 ROS - Review of Systems All systems: All other ROS were reviewed and found negative. - Medication Medications: Active Medications Generic Name Dose Route Start Last Admin Trade Name Freq PRN Reason Stop Dose Admin Acetaminophen 650 mg 04/05/19 22:14 04/23/19 20:09 Tylenol Elixir PO 650 mg Q6H PRN Administration Fever > 101 or Mild Pain Albuterol/Ipratropium 3 ml 04/06/19 01:00 04/27/19 07:25 Duoneb NEB 3 ml [id number] FAISAL Administration Apixaban 5 mg 04/22/19 21:00 04/27/19 09:55 Eliquis PO 5 mg BID FAISAL Administration Aspirin 81 mg 04/12/19 08:00 04/27/19 09:55 Aspirin Chewable PO 81 mg QAM-WM FAISAL Administration Calcium Polycarbophil 625 mg 04/24/19 09:00 04/27/19 09:55 Fibercon PO 625 mg DAILY FAISAL Administration Clonazepam 0.5 mg 04/24/19 21:00 04/27/19 09:55 Klonopin PO 0.5 mg BID FAISAL Administration Diltiazem HCl 30 mg 04/25/19 13:00 04/27/19 12:49 Cardizem PER TUBE 30 mg QID FAISAL Administration Guaifenesin 400 mg 04/12/19 03:00 04/27/19 12:49 Organ-I Nr PER TUBE 400 mg 0300,0900,1500,2100 FAISAL Administration Loperamide HCl 2 mg 04/23/19 12:22 04/25/19 08:55 Imodium PO 2 mg PRN PRN Administration Diarrhea/Loose Stools Prednisone 20 mg 04/24/19 09:00 04/26/19 08:19 Prednisone PO 20 mg Q48H FAISAL Administration Quetiapine Fumarate 25 mg 04/24/19 21:00 04/27/19 09:55 Seroquel PO 25 mg BID FAISAL Administration Sertraline HCl 100 mg 04/13/19 09:00 04/27/19 09:55 Zoloft PER TUBE 100 mg DAILY FAISAL Administration Sodium Chloride 10 ml 04/07/19 21:00 04/27/19 09:55 Flush - Normal Saline IVF 10 ml Q12HR FAISAL Administration Sodium Chloride 10 ml 04/07/19 09:55 04/12/19 11:42 Flush - Normal Saline IVF 10 ml PRN PRN Administration Saline Flush - Exam NAD, awake alert Neck: supple (Trach in place.), symmetric, no JVD, no Thyromegaly Heart: RRR, no murmur, no gallops, no rubs, normal peripheral pulses Respiratory: CTAB, no wheezes, no rales, no ronchi, tachypneic (Mild) Gastrointestinal: soft, non-tender, non-distended, normal bowel sounds, no palpable masses, no hepatomegaly, no splenomegaly, no bruit Extremities: no cyanosis, no clubbing, no edema Neurological: no focal deficits (Still a little encephalopathic.) Hosp A/P (1) Acute respiratory failure with hypoxia and hypercapnia Code(s): J96.01 - ACUTE RESPIRATORY FAILURE WITH HYPOXIA; J96.02 - ACUTE RESPIRATORY FAILURE WITH HYPERCAPNIA Status: Acute (2) Mucus plugging of bronchi Code(s): J98.09 - OTHER DISEASES OF BRONCHUS, NOT ELSEWHERE CLASSIFIED Status : Acute (3) Sepsis Code(s): A41.9 - SEPSIS, UNSPECIFIED ORGANISM Status: Acute (4) Morbid obesity Code(s): E66.01 - MORBID (SEVERE) OBESITY DUE TO EXCESS CALORIES Status: Chronic (5) TASHIA (acute kidney injury) Code(s): N17.9 - ACUTE KIDNEY FAILURE, UNSPECIFIED Status: Acute (6) Atelectasis of left lung Code(s): J98.11 - ATELECTASIS Status: Acute (7) Pneumonia Code(s): J18.9 - PNEUMONIA, UNSPECIFIED ORGANISM Status: Acute Qualifiers: Laterality: left - Plan Patient presented with sepsis, hypoxic resp failure likely secondary to pneumonia. Failed to wean from vent and required PEG, Trach. Had large mucous plug/clot that caused resp arrest that was quickly resolved and the clot extracted by Dr. Teran. He has continued to be somewhat encephalopathic. Stable with trach. Stable PEG feeds. Today hypernatremic and slightly worsened renal function. Will increase the free water in the PEG. Recheck labs in am. Continue to work on placement.
[2019-04-28] MEDS: guaiFENesin 200 MG TAB PER TUBE SCH ×4 (02:17→20:49)
[2019-04-28 04:19] LABS: Anion Gap 16 mmol/L (10-20); BUN (Urea Nitrogen) 82 mg/dL (8.4-25.7); Calc. Creatinine Clearance 86 mL/min (70-130); Calcium 10.7 mg/dL (7.8-10.44); Carbon Dioxide 26 mmol/L (22-29); Chloride 110 mmol/L (98-107); Estimated GFR-MDRD 45; Glucose 99 mg/dL (70-105); Potassium 5.7 mmol/L (3.5-5.1); Sodium 146 mmol/L (136-145)
[2019-04-28] MEDS: Aspirin Chewable 81 MG TAB PO SCH (08:42)
[2019-04-28] MEDS: Calcium Polycarbophil 625 MG TAB PO SCH (08:42)
[2019-04-28] MEDS: Apixaban 5 MG TAB PO SCH ×2 (08:42→20:49)
[2019-04-28] MEDS: clonazePAM 0.5 MG TAB PO SCH ×2 (08:43→20:49)
[2019-04-28] MEDS: predniSONE 20 MG TAB PO SCH (08:43)
[2019-04-28] MEDS ORDERED: Chlorhexidine Gluconate 15 ML UDCUP SSP SCH (16:15)
[2019-04-28] MEDS ORDERED: Fluconazole 100 MG TAB PER TUBE SCH (17:15)
--- NOTE | 2019-04-28 19:25 | PDOC.HOSPP ---
- Subjective Subjective: No change. No talking much today. - Objective Vital Signs & Weight: Vital Signs (12 hours) Temp Pulse Pulse Pulse Resp BP BP 04/28/19 18:54 82 16 04/28/19 15:21 98.2 F 04/28/19 13:58 88 21 H 04/28/19 11:22 85 85 152/85 H 165/79 H 04/28/19 10:39 98.1 F 04/28/19 07:39 04/28/19 07:37 92 26 H Pulse Ox Pulse Ox Pulse Ox 04/28/19 18:54 98 04/28/19 15:21 04/28/19 13:58 99 04/28/19 11:22 94 L 94 L 04/28/19 10:39 04/28/19 07:39 93 L 04/28/19 07:37 93 L Weight Admit Weight 319 lb 10.7 oz Weight 265 lb Most Recent Monitor Data Heart Rate from ECG 80 NIBP 149/78 NIBP BP-Mean 101 Respiration from ECG 25 SpO2 92 I&O: 04/27/19 04/28/19 04/29/19 06:59 06:59 06:59 Intake Total 2533 2520 1720 Output Total 600 1100 Balance 1933 1420 1720 Result Diagrams: 04/27/19 08:09 04/28/19 03:31 ROS - Review of Systems All systems: All other ROS were reviewed and found negative. - Medication Medications: Active Medications Generic Name Dose Route Start Last Admin Trade Name Freq PRN Reason Stop Dose Admin Acetaminophen 650 mg 04/05/19 22:14 04/23/19 20:09 Tylenol Elixir PO 650 mg Q6H PRN Administration Fever > 101 or Mild Pain Albuterol/Ipratropium 3 ml 04/06/19 01:00 04/28/19 18:54 Duoneb NEB 3 ml [id number] FAISAL Administration Apixaban 5 mg 04/22/19 21:00 04/28/19 08:42 Eliquis PO 5 mg BID FAISAL Administration Aspirin 81 mg 04/12/19 08:00 04/28/19 08:42 Aspirin Chewable PO 81 mg QAM-WM FAISAL Administration Calcium Polycarbophil 625 mg 04/24/19 09:00 04/28/19 08:42 Fibercon PO 625 mg DAILY FAISAL Administration Clonazepam 0.5 mg 04/24/19 21:00 04/28/19 08:43 Klonopin PO 0.5 mg BID FAISAL Administration Diltiazem HCl 30 mg 04/25/19 13:00 04/28/19 16:56 Cardizem PER TUBE 30 mg QID FAISAL Administration Guaifenesin 400 mg 04/12/19 03:00 04/28/19 13:58 Organ-I Nr PER TUBE 400 mg 0300,0900,1500,2100 FAISAL Administration Loperamide HCl 2 mg 04/23/19 12:22 04/25/19 08:55 Imodium PO 2 mg PRN PRN Administration Diarrhea/Loose Stools Prednisone 20 mg 04/24/19 09:00 04/28/19 08:43 Prednisone PO 20 mg Q48H FAISAL Administration Quetiapine Fumarate 25 mg 04/24/19 21:00 04/28/19 08:43 Seroquel PO 25 mg BID FAISAL Administration Sertraline HCl 100 mg 04/13/19 09:00 04/28/19 08:43 Zoloft PER TUBE 100 mg DAILY FAISAL Administration Sodium Chloride 10 ml 04/07/19 21:00 04/28/19 08:43 Flush - Normal Saline IVF 10 ml Q12HR FAISAL Administration Sodium Chloride 10 ml 04/07/19 09:55 04/12/19 11:42 Flush - Normal Saline IVF 10 ml PRN PRN Administration Saline Flush - Exam NAD (Still looks encephalopathic.) Heart: RRR, no murmur, no gallops, no rubs, normal peripheral pulses Respiratory: CTAB, no wheezes, no rales, no ronchi, normal chest expansion, no tachypnea, normal percussion Gastrointestinal: soft, non-tender, non-distended, normal bowel sounds, no palpable masses, no hepatomegaly, no splenomegaly, no bruit Skin: normal turgor, no lesions, no rashes Musculoskeletal: normal tone Hosp A/P (1) Acute respiratory failure with hypoxia and hypercapnia Code(s): J96.01 - ACUTE RESPIRATORY FAILURE WITH HYPOXIA; J96.02 - ACUTE RESPIRATORY FAILURE WITH HYPERCAPNIA Status: Acute (2) Mucus plugging of bronchi Code(s): J98.09 - OTHER DISEASES OF BRONCHUS, NOT ELSEWHERE CLASSIFIED Status : Acute (3) Sepsis Code(s): A41.9 - SEPSIS, UNSPECIFIED ORGANISM Status: Acute (4) Morbid obesity Code(s): E66.01 - MORBID (SEVERE) OBESITY DUE TO EXCESS CALORIES Status: Chronic (5) TASHIA (acute kidney injury) Code(s): N17.9 - ACUTE KIDNEY FAILURE, UNSPECIFIED Status: Acute (6) Atelectasis of left lung Code(s): J98.11 - ATELECTASIS Status: Acute (7) Pneumonia Code(s): J18.9 - PNEUMONIA, UNSPECIFIED ORGANISM Status: Acute Qualifiers: Laterality: left - Plan Continue current plan. Placement concern now. Trach and PEG care.
--- NOTE | 2019-04-28 21:51 | PRG ---
DATE OF SERVICE: 04/28/2019 SUBJECTIVE: Mr. Mak is stable off mechanical ventilation. He is weak and still encephalopathic as expected. I am surprised that he looks as good as he does on the morning of Sunday when I last saw him. OBJECTIVE: VITAL SIGNS: He is afebrile. Heart rates in the 80s, blood pressure 141/86, respiratory rate is 23. HEAD AND NECK: Unremarkable. He has slightly dysconjugate gaze. LUNGS: Clear. HEART: Regular rhythm. ABDOMEN: Soft and nontender. EXTREMITIES: Without asymmetry. LABORATORY DATA: Electrolytes; sodium 146, potassium 5.7, chloride 110, bicarb 26, BUN 82, creatinine 1.58. Intake and output were positive 1420. IMPRESSION: 1. Chronic obstructive pulmonary disease exacerbation. 2. Status post mucus plugging. 3. Deep vein thrombosis associated with femoral vein catheter. 4. Status post tracheostomy. 5. Status post PEG. 6. Status post tracheostomy occlusion with blood clot leading to a brief code. 7. Diastolic heart failure. 8. Obesity. 9. Sleep apnea, reportedly compliant with CPAP. 10. Encephalopathy associated with his critical illness and his brief arrest. Hopefully, this will gradually continue to improve. We will continue to follow the other physicians caring for him. The other issue will be to monitor is renal function. Probably, he has some chronic kidney disease aggravated by negative fluid balance while he is mechanically ventilated. This responded to reinstitution of IV fluids and free water. Next step will be placement. Job ID: [id number] MTDD
[2019-04-29] MEDS: guaiFENesin 200 MG TAB PER TUBE SCH ×4 (02:51→22:08)
[2019-04-29 04:30] LABS: Anion Gap 15 mmol/L (10-20); BUN (Urea Nitrogen) 89 mg/dL (8.4-25.7); Calc. Creatinine Clearance 77 mL/min (70-130); Carbon Dioxide 30 mmol/L (22-29); Chloride 109 mmol/L (98-107); Estimated GFR-MDRD 40; Glucose 96 mg/dL (70-105); Potassium 5.7 mmol/L (3.5-5.1); Sodium 148 mmol/L (136-145)
[2019-04-29] MEDS: Chlorhexidine Gluconate 15 ML UDCUP SSP SCH (08:51)
[2019-04-29] MEDS: Calcium Polycarbophil 625 MG TAB PO SCH (08:52)
[2019-04-29] MEDS: clonazePAM 0.5 MG TAB PO SCH ×2 (08:52→22:08)
[2019-04-29] MEDS: Apixaban 5 MG TAB PO SCH ×2 (08:52→22:09)
[2019-04-29] MEDS: Aspirin Chewable 81 MG TAB PO SCH (08:53)
--- NOTE | 2019-04-29 13:56 | PRG ---
DATE OF SERVICE: 04/29/2019 SUBJECTIVE: Mr. Mak is in no distress. He still complaints that he wants to drink more water. OBJECTIVE: VITAL SIGNS: He is afebrile, heart rate in the 70s, blood pressure 130/70, and respiratory rate in the 20s. LUNGS: Clear. HEART: Regular rhythm. ABDOMEN: Soft. EXTREMITIES: Without edema. LABORATORY DATA: White count 11.1 two days ago. There is no CBC today. Sodium 148, potassium 5.7, chloride 109, bicarb 30, BUN 89, and creatinine 1.75. Intake and output, not recorded. IMPRESSION AND PLAN: 1. Acute on chronic kidney disease. 2. Diastolic dysfunction. 3. Chronic obstructive pulmonary disease. 4. Status post left lung atelectasis requiring a prolonged bronchoscopy for therapeutic reasons. 5. Hypercalcemia. This is new and I suspect it is related to intravascular volume depletion. Probably benefit from more free water. This worked last time. His creatinine and his chloride went up. He need to continue to be monitored in the hospital for several more days. In my opinion, I do not feel he is quite ready for transfer unless it to a long-term acute care facility. Job ID: [id number]
[2019-04-29] MEDS: Dextrose 5% in Water 1,000 ML IV SCH (15:15)
[2019-04-30] MEDS: Dextrose 5% in Water 1,000 ML IV SCH ×2 (03:22→18:35)
[2019-04-30] MEDS: guaiFENesin 200 MG TAB PER TUBE SCH ×4 (03:22→22:42)
[2019-04-30] MEDS: clonazePAM 0.5 MG TAB PO SCH ×2 (09:10→22:44)
[2019-04-30] MEDS: Apixaban 5 MG TAB PO SCH ×2 (09:10→22:42)
[2019-04-30] MEDS: Chlorhexidine Gluconate 15 ML UDCUP SSP SCH (09:10)
[2019-04-30] MEDS: predniSONE 20 MG TAB PO SCH (09:10)
[2019-04-30] MEDS: Aspirin Chewable 81 MG TAB PO SCH (09:10)
[2019-04-30] MEDS: Calcium Polycarbophil 625 MG TAB PO SCH (09:10)
[2019-04-30 12:16] LABS: Anion Gap 18 mmol/L (10-20); BUN (Urea Nitrogen) 88 mg/dL (8.4-25.7); Calc. Creatinine Clearance 84 mL/min (70-130); Calcium 11.1 mg/dL (7.8-10.44); Carbon Dioxide 25 mmol/L (22-29); Chloride 106 mmol/L (98-107); Estimated GFR-MDRD 44; Glucose 128 mg/dL (70-105); Potassium 6.2 mmol/L (3.5-5.1); Sodium 143 mmol/L (136-145)
--- NOTE | 2019-04-30 15:21 | PDOC.HOSPP ---
- Subjective Subjective: Doing ok. Frustrated because he can't always get up to the BSC when he needs to void. Feels like he needs to move his legs and get up, but too weak still. Says he wants to eat. Knows he is getting the PEG feeds, but says "its not the same". - Objective Vital Signs & Weight: Vital Signs (12 hours) Temp Pulse Pulse Pulse Resp BP BP 04/30/19 15:00 97.9 F 04/30/19 13:10 84 18 04/30/19 10:55 97.4 F L 04/30/19 09:25 87 83 159/95 H 159/90 H 04/30/19 08:00 04/30/19 07:36 83 20 04/30/19 07:16 97.7 F 04/30/19 04:00 97.2 F L Pulse Ox Pulse Ox Pulse Ox 04/30/19 15:00 04/30/19 13:10 92 L 04/30/19 10:55 04/30/19 09:25 90 L 93 L 04/30/19 08:00 94 L 04/30/19 07:36 96 04/30/19 07:16 04/30/19 04:00 Weight Admit Weight 319 lb 10.7 oz Weight 262 lb 9.129 oz Most Recent Monitor Data Heart Rate from ECG 86 NIBP 184/98 NIBP BP-Mean 126 Respiration from ECG 18 SpO2 90 I&O: 04/29/19 04/30/19 05/01/19 06:59 06:59 06:59 Intake Total 3140 2189 150 Balance 3140 2189 150 Result Diagrams: 04/27/19 08:09 04/30/19 11:48 ROS - Review of Systems All systems: All other ROS were reviewed and found negative. - Medication Medications: Active Medications Generic Name Dose Route Start Last Admin Trade Name Freq PRN Reason Stop Dose Admin Acetaminophen 650 mg 04/05/19 22:14 04/23/19 20:09 Tylenol Elixir PO 650 mg Q6H PRN Administration Fever > 101 or Mild Pain Albuterol/Ipratropium 3 ml 04/06/19 01:00 04/30/19 13:10 Duoneb NEB 3 ml [id number] FAISAL Administration Apixaban 5 mg 04/22/19 21:00 04/30/19 09:10 Eliquis PO 5 mg BID FAISAL Administration Aspirin 81 mg 04/12/19 08:00 04/30/19 09:10 Aspirin Chewable PO 81 mg QAM-WM FAISAL Administration Calcium Polycarbophil 625 mg 04/24/19 09:00 04/30/19 09:10 Fibercon PO 625 mg DAILY FAISAL Administration Chlorhexidine Gluconate 15 ml 04/29/19 09:00 04/30/19 09:10 Chlorhexidine Gluconate SSP 15 ml QAM FAISAL Administration Clonazepam 0.5 mg 04/24/19 21:00 04/30/19 09:10 Klonopin PO 0.5 mg BID FAISAL Administration Diltiazem HCl 60 mg 04/30/19 08:36 04/30/19 14:26 Cardizem PER TUBE 60 mg QID FAISAL Administration Guaifenesin 400 mg 04/12/19 03:00 04/30/19 14:26 Organ-I Nr PER TUBE 400 mg 0300,0900,1500,2100 FAISAL Administration Dextrose/Water 1,000 mls @ 75 mls/hr 04/29/19 13:15 04/30/19 03:22 D5w IV 1,000 mls .[id number] FAISAL Administration Loperamide HCl 2 mg 04/23/19 12:22 04/25/19 08:55 Imodium PO 2 mg PRN PRN Administration Diarrhea/Loose Stools Prednisone 20 mg 04/24/19 09:00 04/30/19 09:10 Prednisone PO 20 mg Q48H FAISAL Administration Quetiapine Fumarate 25 mg 04/24/19 21:00 04/30/19 09:10 Seroquel PO 25 mg BID FAISAL Administration Sertraline HCl 100 mg 04/13/19 09:00 04/30/19 09:10 Zoloft PER TUBE 100 mg DAILY FAISAL Administration Sodium Chloride 10 ml 04/07/19 21:00 04/30/19 09:11 Flush - Normal Saline IVF 10 ml Q12HR FAISAL Administration Sodium Chloride 10 ml 04/07/19 09:55 04/12/19 11:42 Flush - Normal Saline IVF 10 ml PRN PRN Administration Saline Flush - Exam NAD Neck: supple (Trach in place.) Heart: RRR, no murmur, no gallops, no rubs, normal peripheral pulses Respiratory: CTAB, no wheezes, no rales, no ronchi, normal chest expansion, no tachypnea, normal percussion Gastrointestinal: soft, non-tender, non-distended, normal bowel sounds, no palpable masses (PEG in place. Looks good.), no hepatomegaly, no splenomegaly, no bruit Extremities: no cyanosis, no clubbing, no edema (Chronic bronzing.) Skin: normal turgor Neurological: CN's grossly intact Musculoskeletal: normal tone Psychiatric: flat affect Hosp A/P (1) Acute respiratory failure with hypoxia and hypercapnia Code(s): J96.01 - ACUTE RESPIRATORY FAILURE WITH HYPOXIA; J96.02 - ACUTE RESPIRATORY FAILURE WITH HYPERCAPNIA Status: Acute (2) Mucus plugging of bronchi Code(s): J98.09 - OTHER DISEASES OF BRONCHUS, NOT ELSEWHERE CLASSIFIED Status : Acute (3) Sepsis Code(s): A41.9 - SEPSIS, UNSPECIFIED ORGANISM Status: Acute (4) Morbid obesity Code(s): E66.01 - MORBID (SEVERE) OBESITY DUE TO EXCESS CALORIES Status: Chronic (5) TASHIA (acute kidney injury) Code(s): N17.9 - ACUTE KIDNEY FAILURE, UNSPECIFIED Status: Acute (6) Atelectasis of left lung Code(s): J98.11 - ATELECTASIS Status: Acute (7) Pneumonia Code(s): J18.9 - PNEUMONIA, UNSPECIFIED ORGANISM Status: Acute Qualifiers: Laterality: left - Plan Continue PEG feeds. Has hypernatremia, hyperkalemia, hypercalcemia. Increased free water. No D5 1/2 NS added. Will try to work with urinal. Reviewed [facility] records. He still cannot pass a swallow. Remains NPO.
--- NOTE | 2019-04-30 15:26 | PDOC.HOSPP ---
- Subjective Subjective: Doing ok today. Says he is breathing well. Has no complaints. - Objective Vital Signs & Weight: Vital Signs (12 hours) Temp Pulse Pulse Pulse Resp BP BP 04/30/19 15:00 97.9 F 04/30/19 13:10 84 18 04/30/19 10:55 97.4 F L 04/30/19 09:25 87 83 159/95 H 159/90 H 04/30/19 08:00 04/30/19 07:36 83 20 04/30/19 07:16 97.7 F 04/30/19 04:00 97.2 F L Pulse Ox Pulse Ox Pulse Ox 04/30/19 15:00 04/30/19 13:10 92 L 04/30/19 10:55 04/30/19 09:25 90 L 93 L 04/30/19 08:00 94 L 04/30/19 07:36 96 04/30/19 07:16 04/30/19 04:00 Weight Admit Weight 319 lb 10.7 oz Weight 262 lb 9.129 oz Most Recent Monitor Data Heart Rate from ECG 86 NIBP 184/98 NIBP BP-Mean 126 Respiration from ECG 18 SpO2 90 I&O: 04/29/19 04/30/19 05/01/19 06:59 06:59 06:59 Intake Total 3140 2189 150 Balance 3140 2189 150 Result Diagrams: 04/27/19 08:09 04/30/19 11:48 ROS - Review of Systems All systems: All other ROS were reviewed and found negative. - Medication Medications: Active Medications Generic Name Dose Route Start Last Admin Trade Name Flipq PRN Reason Stop Dose Admin Acetaminophen 650 mg 04/05/19 22:14 04/23/19 20:09 Tylenol Elixir PO 650 mg Q6H PRN Administration Fever > 101 or Mild Pain Albuterol/Ipratropium 3 ml 04/06/19 01:00 04/30/19 13:10 Duoneb NEB 3 ml [id number] FAISAL Administration Apixaban 5 mg 04/22/19 21:00 04/30/19 09:10 Eliquis PO 5 mg BID FAISAL Administration Aspirin 81 mg 04/12/19 08:00 04/30/19 09:10 Aspirin Chewable PO 81 mg QAM-WM FAISAL Administration Calcium Polycarbophil 625 mg 04/24/19 09:00 04/30/19 09:10 Fibercon PO 625 mg DAILY FAISAL Administration Chlorhexidine Gluconate 15 ml 04/29/19 09:00 04/30/19 09:10 Chlorhexidine Gluconate SSP 15 ml QAM FAISAL Administration Clonazepam 0.5 mg 04/24/19 21:00 04/30/19 09:10 Klonopin PO 0.5 mg BID FAISAL Administration Diltiazem HCl 60 mg 04/30/19 08:36 04/30/19 14:26 Cardizem PER TUBE 60 mg QID FAISAL Administration Guaifenesin 400 mg 04/12/19 03:00 04/30/19 14:26 Organ-I Nr PER TUBE 400 mg 0300,0900,1500,2100 FAISAL Administration Dextrose/Water 1,000 mls @ 75 mls/hr 04/29/19 13:15 04/30/19 03:22 D5w IV 1,000 mls .[id number] FAISAL Administration Loperamide HCl 2 mg 04/23/19 12:22 04/25/19 08:55 Imodium PO 2 mg PRN PRN Administration Diarrhea/Loose Stools Prednisone 20 mg 04/24/19 09:00 04/30/19 09:10 Prednisone PO 20 mg Q48H FAISAL Administration Quetiapine Fumarate 25 mg 04/24/19 21:00 04/30/19 09:10 Seroquel PO 25 mg BID FAISAL Administration Sertraline HCl 100 mg 04/13/19 09:00 04/30/19 09:10 Zoloft PER TUBE 100 mg DAILY FAISAL Administration Sodium Chloride 10 ml 04/07/19 21:00 04/30/19 09:11 Flush - Normal Saline IVF 10 ml Q12HR FAISAL Administration Sodium Chloride 10 ml 04/07/19 09:55 04/12/19 11:42 Flush - Normal Saline IVF 10 ml PRN PRN Administration Saline Flush - Exam NAD Neck: supple (Trach in place.), no JVD Heart: RRR, no murmur, no gallops, no rubs, normal peripheral pulses Respiratory: CTAB, no wheezes, no rales, no ronchi, normal chest expansion, no tachypnea, normal percussion Gastrointestinal: soft, non-tender, non-distended, normal bowel sounds, no palpable masses (PEG in place.), no hepatomegaly, no splenomegaly, no bruit Extremities: no cyanosis, no clubbing, no edema Skin: normal turgor Neurological: no focal deficits (Still somnolent much of the time and still appears encephalopathic. Does generally converse (with speaking valve) with cogent responses.) Musculoskeletal: normal tone Hosp A/P (1) Acute respiratory failure with hypoxia and hypercapnia Code(s): J96.01 - ACUTE RESPIRATORY FAILURE WITH HYPOXIA; J96.02 - ACUTE RESPIRATORY FAILURE WITH HYPERCAPNIA Status: Acute (2) Mucus plugging of bronchi Code(s): J98.09 - OTHER DISEASES OF BRONCHUS, NOT ELSEWHERE CLASSIFIED Status : Acute (3) Sepsis Code(s): A41.9 - SEPSIS, UNSPECIFIED ORGANISM Status: Acute (4) Morbid obesity Code(s): E66.01 - MORBID (SEVERE) OBESITY DUE TO EXCESS CALORIES Status: Chronic (5) TASHIA (acute kidney injury) Code(s): N17.9 - ACUTE KIDNEY FAILURE, UNSPECIFIED Status: Acute (6) Atelectasis of left lung Code(s): J98.11 - ATELECTASIS Status: Acute (7) Pneumonia Code(s): J18.9 - PNEUMONIA, UNSPECIFIED ORGANISM Status: Acute Qualifiers: Laterality: left - Plan Increased free water and lytes slightly better. Will make the changes recommended by LABEL MACHINE OPERATOR. Increase Free Water. Continue therapy. Still unclear why he appears somnolent and encephalopathic much of the time. Just generally groggy. Does not appear to be med related. Repeat labs in am. NH4 level. Working on placement. Has been denied by several places due to the trach.
--- NOTE | 2019-04-30 21:53 | PRG ---
DATE OF SERVICE: 04/30/2019 SUBJECTIVE: Mr. Mak is still encephalopathic, but interacts and responds to questions. OBJECTIVE: VITAL SIGNS: He is afebrile. Heart rate is 88, respiratory rate 17, oximetry is 94 on a trach collar, blood pressure 144/86. LUNGS: Clear. HEART: Regular rhythm. ABDOMEN: Soft. EXTREMITIES: Without asymmetry or edema. LABORATORY DATA: Sodium 143, potassium 6.2, chloride 106, bicarb 25, BUN 88, creatinine 1.6. IMPRESSION: 1. Chronic obstructive pulmonary disease exacerbation. 2. Acute on chronic respiratory failure, requiring tracheostomy. 3. Status post PEG. Nutrition needs to be switched to Suplena given the rising potassium. 4. Deep venous thrombosis. Central line. 5. Diastolic heart failure. 6. Status post bronchoscopy for severe mucus plugging. He received some Kayexalate earlier. I talked to the nurse about changing the feeding. We will continue to follow. Job ID: [id number]
[2019-05-01] MEDS: guaiFENesin 200 MG TAB PER TUBE SCH ×4 (02:00→20:27)
[2019-05-01 03:59] LABS: #Basophils 0.1 thou/uL (0.0-0.2); #Eosinphils 0.4 thou/uL (0.0-0.7); #Lymphocytes 1.7 thou/uL (1.20-3.40); #Monocytes 0.6 thou/uL (0.11-0.59); #Neutrophils 9.3 thou/uL (1.40-6.50); %Basophils 0.5 % (0.0-1.0); %Eosinophils 3.3 % (0.0-10.0); %Lymphocytes 14.3 % (21.0-51.0); %Monocytes 4.9 % (0.0-10.0); %Neutrophils 77.1 % (42.0-75.0); Hemoglobin 15.1 g/dL (14.0-18.0); Mean Corpuscular HGB CONC 29.7 g/dL (32.0-36.0); Mean Corpuscular Hemoglobin 26.9 pg (27.0-31.0); Mean Corpuscular Volume 90.6 fL (78.0-98.0); Mean Platelet Volume 8.9 fL (7.4-10.4); Platelet Count 206 thou/uL (130-400); RBC Distribution Width 15.5 % (11.5-14.5); White Blood Cell (WBC) Count 12.1 thou/uL (4.8-10.8)
[2019-05-01 04:08] LABS: Anion Gap 15 mmol/L (10-20); BUN (Urea Nitrogen) 79 mg/dL (8.4-25.7); Calc. Creatinine Clearance 84 mL/min (70-130); Carbon Dioxide 26 mmol/L (22-29); Chloride 105 mmol/L (98-107); Estimated GFR-MDRD 45; Glucose 117 mg/dL (70-105); Potassium 5.3 mmol/L (3.5-5.1); Sodium 141 mmol/L (136-145)
[2019-05-01] MEDS: Dextrose 5% in Water 1,000 ML IV SCH ×2 (08:42→20:51)
[2019-05-01] MEDS: Chlorhexidine Gluconate 15 ML UDCUP SSP SCH (08:42)
[2019-05-01] MEDS: Apixaban 5 MG TAB PO SCH ×2 (08:43→20:27)
[2019-05-01] MEDS: Calcium Polycarbophil 625 MG TAB PO SCH (08:43)
[2019-05-01] MEDS: clonazePAM 0.5 MG TAB PO SCH (08:44)
[2019-05-01] MEDS: Aspirin Chewable 81 MG TAB PO SCH (08:44)
[2019-05-01] MEDS: predniSONE 20 MG TAB PO SCH (10:22)
--- NOTE | 2019-05-01 11:35 | PRG ---
DATE OF SERVICE: 05/01/2019 SUBJECTIVE: Mr. Mak is slowly improving. His mental status is much improved this morning, so we stopped his Seroquel and his Klonopin. The nursing staff feels like this was making him more somnolent during the day. OBJECTIVE: VITAL SIGNS: He is afebrile. Heart rate 80, respiratory rate is 20, oximetry is 96% on trach collar, blood pressure is 145/94. LUNGS: Clear. HEART: Regular rhythm. ABDOMEN: Soft. LABORATORY DATA: White count 12.1, hemoglobin 15 g, platelets 206. Sodium 141, potassium 5.3, chloride 105, bicarb 26, BUN 79, creatinine 1.59. IMPRESSION: 1. Intravascular volume depletion with prerenal azotemia. We have taken the potassium out of his nutritional support. We are continuing with IV hydration. We will cut back on the large volume of fluids, it was given through his PEG for now. 2. Hypercalcemia, likely secondary to intravascular volume depletion. His calciums have been normal prior to this. I doubt he has hyperparathyroidism, but this will need to be followed as an outpatient. 3. Chronic obstructive pulmonary disease. 4. Diastolic heart failure. 5. Status post mechanical ventilation for prolonged period of time, requiring tracheostomy. 6. Critical illness myopathy. 7. Retained secretions requiring bronchoscopy. No malignant lesions were identified. 8. Status post code with a tracheostomy hemorrhage. 9. Status post tracheostomy and PEG placement. 10. Hyperkalemia, improving. 11. Obesity. 12. Sleep apnea, now treated with tracheostomy. I would be slow to remove his tracheostomy, once he is out of here, we would wait until he is ambulatory to downsize it. We will continue with IV hydration and supportive care. Job ID: [id number]
--- NOTE | 2019-05-01 14:01 | PDOC.HOSPP ---
- Subjective Subjective: 59 y/o male with OLENA on CPAP, COPD, CKD 3 and others admitted with worsening SOB and AMS. Found to have acute respiratory failure with hypoxia and was intubated. patient improved but could not be weaned off ventilastor hence had PEG and tracheostomy. Feeling better today and more appropriate. Denied any discomfort. - Objective Vital Signs & Weight: Vital Signs (12 hours) Temp Pulse Resp Pulse Ox 05/01/19 12:48 94 L 05/01/19 12:46 74 20 93 L 05/01/19 11:44 97.7 F 05/01/19 08:00 97.7 F 94 L 05/01/19 07:23 96 05/01/19 07:22 80 20 96 05/01/19 03:36 98.0 F Weight Admit Weight 319 lb 10.7 oz Weight 262 lb 9.129 oz Most Recent Monitor Data Heart Rate from ECG 77 NIBP 142/68 NIBP BP-Mean 92 Respiration from ECG 21 SpO2 97 I&O: 04/30/19 05/01/19 05/02/19 06:59 06:59 06:59 Intake Total 2189 4530 150 Output Total 950 Balance 2189 3580 150 Result Diagrams: 05/01/19 03:48 05/01/19 03:48 ROS - Review of Systems All systems: All other ROS were reviewed and found negative. - Medication Medications: Active Medications Generic Name Dose Route Start Last Admin Trade Name Freq PRN Reason Stop Dose Admin Acetaminophen 650 mg 04/05/19 22:14 04/23/19 20:09 Tylenol Elixir PO 650 mg Q6H PRN Administration Fever > 101 or Mild Pain Albuterol/Ipratropium 3 ml 04/06/19 01:00 05/01/19 12:46 Duoneb NEB 3 ml [id number] FAISAL Administration Apixaban 5 mg 04/22/19 21:00 05/01/19 08:43 Eliquis PO 5 mg BID FAISAL Administration Aspirin 81 mg 04/12/19 08:00 05/01/19 08:44 Aspirin Chewable PO 81 mg QAM-WM FAISAL Administration Calcium Polycarbophil 625 mg 04/24/19 09:00 05/01/19 08:43 Fibercon PO 625 mg DAILY FAISAL Administration Chlorhexidine Gluconate 15 ml 04/29/19 09:00 05/01/19 08:42 Chlorhexidine Gluconate SSP 15 ml QAM FAISAL Administration Diltiazem HCl 60 mg 04/30/19 08:36 05/01/19 08:43 Cardizem PER TUBE 60 mg QID FAISAL Administration Guaifenesin 400 mg 04/12/19 03:00 05/01/19 08:43 Organ-I Nr PER TUBE 400 mg 0300,0900,1500,2100 FAISAL Administration Dextrose/Water 1,000 mls @ 75 mls/hr 04/29/19 13:15 05/01/19 08:42 D5w IV 1,000 mls .[id number] FAISAL Administration Loperamide HCl 2 mg 04/23/19 12:22 04/25/19 08:55 Imodium PO 2 mg PRN PRN Administration Diarrhea/Loose Stools Prednisone 10 mg 05/01/19 09:00 05/01/19 10:22 Prednisone PO 10 mg QAM FAISAL Administration Sodium Chloride 10 ml 04/07/19 21:00 05/01/19 08:44 Flush - Normal Saline IVF 10 ml Q12HR FAISAL Administration Sodium Chloride 10 ml 04/07/19 09:55 04/12/19 11:42 Flush - Normal Saline IVF 10 ml PRN PRN Administration Saline Flush - Exam awake alert Eye: anicteric sclera ENT: normocephalic atraumatic Neck: symmetric (tacheostomy in place with collar), no JVD Heart: RRR Respiratory: no wheezes, no ronchi (fair air entry bilaterally with some transmitted sound) Gastrointestinal: soft, non-tender, non-distended, normal bowel sounds Extremities: no cyanosis, no clubbing, no edema Neurological: CN's grossly intact, no focal deficits Hosp A/P (1) CKD (chronic kidney disease) stage 3, GFR 30-59 ml/min Code(s): N18.3 - CHRONIC KIDNEY DISEASE, STAGE 3 (MODERATE) Status: Acute (2) Acute encephalopathy Code(s): G93.40 - ENCEPHALOPATHY, UNSPECIFIED Status: Acute (3) Acute on chronic diastolic heart failure Code(s): I50.33 - ACUTE ON CHRONIC DIASTOLIC (CONGESTIVE) HEART FAILURE Status : Acute (4) Pulmonary HTN Code(s): I27.20 - PULMONARY HYPERTENSION, UNSPECIFIED Status: Acute (5) Abnormal LFTs Code(s): R94.5 - ABNORMAL RESULTS OF LIVER FUNCTION STUDIES Status: Acute (6) OLENA on CPAP Code(s): G47.33 - OBSTRUCTIVE SLEEP APNEA (ADULT) (PEDIATRIC); Z99.89 - DEPENDENCE ON OTHER ENABLING MACHINES AND DEVICES Status: Acute (7) TASHIA (acute kidney injury) Code(s): N17.9 - ACUTE KIDNEY FAILURE, UNSPECIFIED Status: Acute (8) Acute respiratory failure with hypoxia and hypercapnia Code(s): J96.01 - ACUTE RESPIRATORY FAILURE WITH HYPOXIA; J96.02 - ACUTE RESPIRATORY FAILURE WITH HYPERCAPNIA Status: Acute (9) Atelectasis of left lung Code(s): J98.11 - ATELECTASIS Status: Acute (10) COPD exacerbation Code(s): J44.1 - CHRONIC OBSTRUCTIVE PULMONARY DISEASE W (ACUTE) EXACERBATION Status: Acute (11) Hyperkalemia Code(s): E87.5 - HYPERKALEMIA Status: Acute (12) Hypernatremia Code(s): E87.0 - HYPEROSMOLALITY AND HYPERNATREMIA Status: Acute (13) Mucus plugging of bronchi Code(s): J98.09 - OTHER DISEASES OF BRONCHUS, NOT ELSEWHERE CLASSIFIED Status : Acute (14) Pneumonia Code(s): J18.9 - PNEUMONIA, UNSPECIFIED ORGANISM Status: Acute Qualifiers: Laterality: left (15) Sepsis Code(s): A41.9 - SEPSIS, UNSPECIFIED ORGANISM Status: Acute (16) Morbid obesity Code(s): E66.01 - MORBID (SEVERE) OBESITY DUE TO EXCESS CALORIES Status: Chronic (17) Hypercalcemia Code(s): E83.52 - HYPERCALCEMIA Status: Acute - Plan Increase free watewr flushes and DC dextrose infusion. Continue other supportive care. Will consider changing tube feeds if hyperkalemia and hypercalcemia persist. increase activity. PT/OT to continue. Trach magt and respiratory support to continue.
[2019-05-02] MEDS: guaiFENesin 200 MG TAB PER TUBE SCH ×4 (03:57→21:08)
[2019-05-02 06:40] LABS: ALT (SGPT) 34 U/L (8-55); AST (SGOT) 27 U/L (5-34); Albumin 3.7 g/dL (3.5-5.0); Alkaline Phosphatase 89 U/L (40-150); Anion Gap 15 mmol/L (10-20); BUN (Urea Nitrogen) 73 mg/dL (8.4-25.7); Bilirubin, Direct 0.2 mg/dL (0.1-0.3); Bilirubin, Total 0.4 mg/dL (0.2-1.2); Calc. Creatinine Clearance 78 mL/min (70-130); Calcium 11.7 mg/dL (7.8-10.44); Carbon Dioxide 27 mmol/L (22-29); Chloride 103 mmol/L (98-107); Estimated GFR-MDRD 41; Glucose 100 mg/dL (70-105); Potassium 5.4 mmol/L (3.5-5.1); Protein, Total 8.7 g/dL (6.0-8.3); Sodium 140 mmol/L (136-145)
[2019-05-02 06:50] LABS: #Eosinphils 0.5 thou/uL (0.0-0.7); #Monocytes 0.8 thou/uL (0.11-0.59); #Neutrophils 10.6 thou/uL (1.40-6.50); %Basophils 0.3 % (0.0-1.0); %Eosinophils 3.2 % (0.0-10.0); %Lymphocytes 14.7 % (21.0-51.0); %Monocytes 5.9 % (0.0-10.0); %Neutrophils 75.9 % (42.0-75.0); Anisocytosis SLIGHT = 6-15 cells (100X) (0-5/hpf); MDiff Complete? YES; Mean Corpuscular HGB CONC 32.1 g/dL (32.0-36.0); Mean Corpuscular Hemoglobin 28.9 pg (27.0-31.0); Mean Corpuscular Volume 89.8 fL (78.0-98.0); Mean Platelet Volume 9.3 fL (7.4-10.4); Platelet Count 143 thou/uL (130-400); RBC Distribution Width 15.6 % (11.5-14.5); Red Blood Cell (RBC) Count 5.55 mill/uL (4.70-6.10); White Blood Cell (WBC) Count 13.9 thou/uL (4.8-10.8)
[2019-05-02] MEDS: Chlorhexidine Gluconate 15 ML UDCUP SSP SCH (09:06)
[2019-05-02] MEDS: predniSONE 20 MG TAB PO SCH (09:07)
[2019-05-02] MEDS: Apixaban 5 MG TAB PO SCH ×2 (09:07→21:08)
[2019-05-02] MEDS: Aspirin Chewable 81 MG TAB PO SCH (09:07)
[2019-05-02] MEDS: Dextrose 5% in Water 1,000 ML IV SCH (11:38)
--- NOTE | 2019-05-02 13:41 | PDOC.HOSPP ---
- Subjective Subjective: 59 y/o male with OLENA on CPAP, COPD, CKD 3 and others admitted with worsening SOB and AMS. Found to have acute respiratory failure with hypoxia and was intubated. patient improved but could not be weaned off ventilastor hence had PEG and tracheostomy. Conversationa nd feeling good. requesting chocolate pudding. - Objective Vital Signs & Weight: Vital Signs (12 hours) Temp Pulse Resp Pulse Ox 05/02/19 11:30 98.3 F 05/02/19 08:27 97.8 F 05/02/19 08:07 82 16 94 L 05/02/19 07:45 93 L 05/02/19 03:42 97.1 F L Weight Admit Weight 319 lb 10.7 oz Weight 260 lb 4.8 oz Most Recent Monitor Data Heart Rate from ECG 81 NIBP 154/96 NIBP BP-Mean 115 Respiration from ECG 8 SpO2 91 I&O: 05/01/19 05/02/19 05/03/19 06:59 06:59 06:59 Intake Total 4530 1610 100 Output Total 950 900 Balance 3580 710 100 Result Diagrams: 05/02/19 05:35 05/02/19 05:35 ROS - Review of Systems All systems: All other ROS were reviewed and found negative. - Medication Medications: Active Medications Generic Name Dose Route Start Last Admin Trade Name Freq PRN Reason Stop Dose Admin Acetaminophen 650 mg 04/05/19 22:14 04/23/19 20:09 Tylenol Elixir PO 650 mg Q6H PRN Administration Fever > 101 or Mild Pain Albuterol/Ipratropium 3 ml 04/06/19 01:00 05/02/19 08:07 Duoneb NEB 3 ml [id number] FAISAL Administration Apixaban 5 mg 04/22/19 21:00 05/02/19 09:07 Eliquis PO 5 mg BID FAISAL Administration Aspirin 81 mg 04/12/19 08:00 05/02/19 09:07 Aspirin Chewable PO 81 mg QAM-WM FAISAL Administration Chlorhexidine Gluconate 15 ml 04/29/19 09:00 05/02/19 09:06 Chlorhexidine Gluconate SSP 15 ml QAM FAISAL Administration Diltiazem HCl 60 mg 04/30/19 08:36 05/02/19 12:57 Cardizem PER TUBE 60 mg QID FAISAL Administration Guaifenesin 400 mg 04/12/19 03:00 05/02/19 09:07 Organ-I Nr PER TUBE 400 mg 0300,0900,1500,2100 FAISAL Administration Loperamide HCl 2 mg 04/23/19 12:22 04/25/19 08:55 Imodium PO 2 mg PRN PRN Administration Diarrhea/Loose Stools Prednisone 10 mg 05/01/19 09:00 05/02/19 09:07 Prednisone PO 10 mg QAM FAISAL Administration Sodium Chloride 10 ml 04/07/19 21:00 05/02/19 09:08 Flush - Normal Saline IVF 10 ml Q12HR FAISAL Administration Sodium Chloride 10 ml 04/07/19 09:55 04/12/19 11:42 Flush - Normal Saline IVF 10 ml PRN PRN Administration Saline Flush - Exam awake alert Eye: anicteric sclera ENT: normocephalic atraumatic Neck: supple (Tracheostomy in place), no JVD Heart: RRR Respiratory: no wheezes, no rales, no ronchi Gastrointestinal: soft, non-tender, non-distended, normal bowel sounds (PEG in place) Extremities: no cyanosis, no clubbing, no edema Neurological: CN's grossly intact, no focal deficits Psychiatric: normal affect, A&O x 3 Hosp A/P (1) CKD (chronic kidney disease) stage 3, GFR 30-59 ml/min Code(s): N18.3 - CHRONIC KIDNEY DISEASE, STAGE 3 (MODERATE) Status: Acute (2) Acute encephalopathy Code(s): G93.40 - ENCEPHALOPATHY, UNSPECIFIED Status: Acute (3) Acute on chronic diastolic heart failure Code(s): I50.33 - ACUTE ON CHRONIC DIASTOLIC (CONGESTIVE) HEART FAILURE Status : Acute (4) Pulmonary HTN Code(s): I27.20 - PULMONARY HYPERTENSION, UNSPECIFIED Status: Acute (5) Abnormal LFTs Code(s): R94.5 - ABNORMAL RESULTS OF LIVER FUNCTION STUDIES Status: Acute (6) OLENA on CPAP Code(s): G47.33 - OBSTRUCTIVE SLEEP APNEA (ADULT) (PEDIATRIC); Z99.89 - DEPENDENCE ON OTHER ENABLING MACHINES AND DEVICES Status: Acute (7) TASHIA (acute kidney injury) Code(s): N17.9 - ACUTE KIDNEY FAILURE, UNSPECIFIED Status: Acute (8) Acute respiratory failure with hypoxia and hypercapnia Code(s): J96.01 - ACUTE RESPIRATORY FAILURE WITH HYPOXIA; J96.02 - ACUTE RESPIRATORY FAILURE WITH HYPERCAPNIA Status: Acute (9) Atelectasis of left lung Code(s): J98.11 - ATELECTASIS Status: Acute (10) COPD exacerbation Code(s): J44.1 - CHRONIC OBSTRUCTIVE PULMONARY DISEASE W (ACUTE) EXACERBATION Status: Acute (11) Hyperkalemia Code(s): E87.5 - HYPERKALEMIA Status: Acute (12) Hypernatremia Code(s): E87.0 - HYPEROSMOLALITY AND HYPERNATREMIA Status: Acute (13) Mucus plugging of bronchi Code(s): J98.09 - OTHER DISEASES OF BRONCHUS, NOT ELSEWHERE CLASSIFIED Status : Acute (14) Pneumonia Code(s): J18.9 - PNEUMONIA, UNSPECIFIED ORGANISM Status: Acute Qualifiers: Laterality: left (15) Sepsis Code(s): A41.9 - SEPSIS, UNSPECIFIED ORGANISM Status: Acute (16) Morbid obesity Code(s): E66.01 - MORBID (SEVERE) OBESITY DUE TO EXCESS CALORIES Status: Chronic (17) Hypercalcemia Code(s): E83.52 - HYPERCALCEMIA Status: Acute - Plan Change tube feed to Nepro Start NS at 50 cc/hr Get BMP and iPTH in the am.
[2019-05-02] MEDS: Sodium Chloride 0.9% 1,000 ML IV SCH (15:42)
--- NOTE | 2019-05-02 17:24 | PRG ---
DATE OF SERVICE: 05/02/2019 SUBJECTIVE: Mr. Mak has no new complaints. He is more alert today, quicker to respond to questions. OBJECTIVE: VITAL SIGNS: He is afebrile, heart rate 85, oximetry is 90% on trach collar, blood pressure 161/88, and respiratory rate 18. LUNGS: Clear. HEART: Regular rhythm. ABDOMEN: Soft and nontender. LABORATORY DATA: White count 13.9, hemoglobin 16, platelets 143. Sodium 140, potassium 5.4, chloride 103, bicarb 27, BUN 73, creatinine 1.7. IMPRESSION: 1. Status post mechanical ventilation for chronic obstructive pulmonary disease exacerbation. 2. Diastolic heart failure. 3. Deep venous thrombosis where femoral vein catheter was placed with presumed thromboembolic disease accounting for hypoxemia. 4. Mucus plugging requiring a prolonged bronchoscopy. 5. Obesity. 6. Sleep apnea, reportedly compliant with therapy prior to admission. 7. Hypercalcemia. I doubt he has a true hypercalcemia. All of his ionized calciums on his blood gas are normal. 8. Status post trach and PEG. 9. Critical illness myopathy. 10. Status post code with a tracheostomy hemorrhage, creating a mucus plug mixed with blood. 11. Obesity. 12. Continue with current therapy. Continue with hydration. Continue to monitor his renal function. Job ID: [id number]
[2019-05-03] MEDS: guaiFENesin 200 MG TAB PER TUBE SCH ×4 (03:41→20:24)
[2019-05-03 06:20] LABS: Albumin 3.6 g/dL (3.5-5.0); Anion Gap 13 mmol/L (10-20); BUN (Urea Nitrogen) 71 mg/dL (8.4-25.7); BUN/Creatinine Ratio 42.52; Calc. Creatinine Clearance 79 mL/min (70-130); Calcium 11.1 mg/dL (7.8-10.44); Carbon Dioxide 29 mmol/L (22-29); Chloride 100 mmol/L (98-107); Estimated GFR-MDRD 42; Glucose 109 mg/dL (70-105); Phosphorus 5.1 mg/dL (2.3-4.7); Potassium 4.6 mmol/L (3.5-5.1); Sodium 137 mmol/L (136-145)
[2019-05-03] MEDS: Chlorhexidine Gluconate 15 ML UDCUP SSP SCH (09:13)
[2019-05-03] MEDS: predniSONE 20 MG TAB PO SCH (09:13)
[2019-05-03] MEDS: Aspirin Chewable 81 MG TAB PO SCH (09:13)
[2019-05-03] MEDS: Apixaban 5 MG TAB PO SCH ×2 (09:13→20:24)
[2019-05-03] MEDS: Sodium Chloride 0.9% 1,000 ML IV SCH (09:14)
--- NOTE | 2019-05-03 13:08 | PDOC.HOSPP ---
- Subjective Subjective: Patient seen and examined, no new issues. - Objective Vital Signs & Weight: Vital Signs (12 hours) Temp Pulse Resp Pulse Ox 05/03/19 11:35 97.6 F 05/03/19 08:20 94 L 05/03/19 08:05 97 05/03/19 08:02 78 26 H 99 05/03/19 07:33 97.5 F L 05/03/19 03:32 98.5 F Weight Admit Weight 319 lb 10.7 oz Weight 260 lb Most Recent Monitor Data Heart Rate from ECG 74 NIBP 157/98 NIBP BP-Mean 117 Respiration from ECG 22 SpO2 97 I&O: 05/02/19 05/03/19 05/04/19 06:59 06:59 06:59 Intake Total 1610 2220 200 Output Total 900 600 Balance 710 1620 200 Result Diagrams: 05/02/19 05:35 05/03/19 05:47 ROS - Review of Systems All systems: All other ROS were reviewed and found negative. - Medication Medications: Active Medications Generic Name Dose Route Start Last Admin Trade Name Freq PRN Reason Stop Dose Admin Acetaminophen 650 mg 04/05/19 22:14 04/23/19 20:09 Tylenol Elixir PO 650 mg Q6H PRN Administration Fever > 101 or Mild Pain Albuterol/Ipratropium 3 ml 04/06/19 01:00 05/03/19 08:02 Duoneb NEB 3 ml [id number] FAISAL Administration Apixaban 5 mg 04/22/19 21:00 05/03/19 09:13 Eliquis PO 5 mg BID FAISAL Administration Aspirin 81 mg 04/12/19 08:00 05/03/19 09:13 Aspirin Chewable PO 81 mg QAM-WM FAISAL Administration Chlorhexidine Gluconate 15 ml 04/29/19 09:00 05/03/19 09:13 Chlorhexidine Gluconate SSP 15 ml QAM FAISAL Administration Diltiazem HCl 60 mg 04/30/19 08:36 05/03/19 12:26 Cardizem PER TUBE 60 mg QID FAISAL Administration Guaifenesin 400 mg 04/12/19 03:00 05/03/19 09:13 Organ-I Nr PER TUBE 400 mg 0300,0900,1500,2100 FAISAL Administration Sodium Chloride 1,000 mls @ 50 mls/hr 05/02/19 13:45 05/03/19 09:14 Normal Saline 0.9% IV 1,000 mls .Q20H FAISAL Administration Loperamide HCl 2 mg 04/23/19 12:22 04/25/19 08:55 Imodium PO 2 mg PRN PRN Administration Diarrhea/Loose Stools Prednisone 10 mg 05/01/19 09:00 05/03/19 09:13 Prednisone PO 10 mg QAM FAISAL Administration Sodium Chloride 10 ml 04/07/19 21:00 05/03/19 09:14 Flush - Normal Saline IVF Not Given Q12HR FAISAL Sodium Chloride 10 ml 04/07/19 09:55 04/12/19 11:42 Flush - Normal Saline IVF 10 ml PRN PRN Administration Saline Flush - Exam NAD (obese), awake alert Eye: PERRL, anicteric sclera ENT: normocephalic atraumatic Neck: supple, symmetric (+Tracheostomy) Heart: RRR, no murmur Respiratory: CTAB, no wheezes, no rales Gastrointestinal: soft Extremities: no cyanosis, no clubbing Skin: normal turgor Neurological: CN's grossly intact Hosp A/P (1) COPD exacerbation Code(s): J44.1 - CHRONIC OBSTRUCTIVE PULMONARY DISEASE W (ACUTE) EXACERBATION Status: Acute (2) Pneumonia Code(s): J18.9 - PNEUMONIA, UNSPECIFIED ORGANISM Status: Acute Qualifiers: Laterality: left (3) Morbid obesity Code(s): E66.01 - MORBID (SEVERE) OBESITY DUE TO EXCESS CALORIES Status: Chronic - Plan - cont current plan of car e- pending placement - Dc once arranged
--- NOTE | 2019-05-03 18:49 | PRG ---
DATE OF SERVICE: 05/03/2019 SUBJECTIVE: Mr. Mak has no new complaints. He is probably the most alert, whom I have seen since he has been in the hospital. OBJECTIVE: VITAL SIGNS: Blood pressure 148/84, heart rate 75, respiratory rate is 14. LUNGS: Clear. HEART: Regular rhythm. ABDOMEN: Soft. LABORATORY DATA: Sodium 137, potassium 4.6, chloride 100, bicarb 29, BUN 71, creatinine 1.67. IMPRESSION: Multiple medical problems, overall stable. Renal function appears to be stabilizing. His deconditioning, weakness, and critical illness myopathy are the biggest issues at this time. Job ID: [id number] MTDD
[2019-05-04] MEDS: guaiFENesin 200 MG TAB PER TUBE SCH ×4 (04:17→20:51)
[2019-05-04] MEDS: Sodium Chloride 0.9% 1,000 ML IV SCH (04:19)
[2019-05-04] MEDS: Apixaban 5 MG TAB PO SCH ×2 (08:22→20:57)
[2019-05-04] MEDS: predniSONE 20 MG TAB PO SCH (08:23)
[2019-05-04] MEDS: Aspirin Chewable 81 MG TAB PO SCH (08:23)
[2019-05-04] MEDS: Chlorhexidine Gluconate 15 ML UDCUP SSP SCH (08:32)
--- NOTE | 2019-05-04 12:35 | PDOC.HOSPP ---
- Subjective Subjective: Patient seen and examined, no new issues. - Objective Vital Signs & Weight: Vital Signs (12 hours) Temp Pulse Resp Pulse Ox 05/04/19 11:32 97.9 F 05/04/19 08:00 96 05/04/19 07:49 96.2 F L 05/04/19 07:41 100 05/04/19 07:40 72 20 100 05/04/19 01:04 97 Weight Admit Weight 319 lb 10.7 oz Weight 260 lb 6.4 oz Most Recent Monitor Data Heart Rate from ECG 73 NIBP 133/83 NIBP BP-Mean 99 Respiration from ECG 0 SpO2 96 I&O: 05/03/19 05/04/19 05/05/19 06:59 06:59 06:59 Intake Total 2220 3070 Output Total 600 1175 Balance 1620 1895 Result Diagrams: 05/02/19 05:35 05/03/19 05:47 ROS - Review of Systems All systems: All other ROS were reviewed and found negative. - Medication Medications: Active Medications Generic Name Dose Route Start Last Admin Trade Name Freq PRN Reason Stop Dose Admin Acetaminophen 650 mg 04/05/19 22:14 04/23/19 20:09 Tylenol Elixir PO 650 mg Q6H PRN Administration Fever > 101 or Mild Pain Albuterol/Ipratropium 3 ml 04/06/19 01:00 05/04/19 07:40 Duoneb NEB 3 ml [id number] FAISAL Administration Apixaban 5 mg 04/22/19 21:00 05/04/19 08:22 Eliquis PO 5 mg BID FAISAL Administration Aspirin 81 mg 04/12/19 08:00 05/04/19 08:23 Aspirin Chewable PO 81 mg QAM-WM FAISAL Administration Chlorhexidine Gluconate 15 ml 04/29/19 09:00 05/04/19 08:32 Chlorhexidine Gluconate SSP 15 ml QAM FAISAL Administration Diltiazem HCl 60 mg 04/30/19 08:36 05/04/19 12:07 Cardizem PER TUBE 60 mg QID FAISAL Administration Guaifenesin 400 mg 04/12/19 03:00 05/04/19 08:23 Organ-I Nr PER TUBE 400 mg 0300,0900,1500,2100 FAISAL Administration Sodium Chloride 1,000 mls @ 50 mls/hr 05/02/19 13:45 05/04/19 04:19 Normal Saline 0.9% IV 1,000 mls .Q20H FAISAL Administration Loperamide HCl 2 mg 04/23/19 12:22 04/25/19 08:55 Imodium PO 2 mg PRN PRN Administration Diarrhea/Loose Stools Prednisone 10 mg 05/01/19 09:00 05/04/19 08:23 Prednisone PO 10 mg QAM FAISAL Administration Sodium Chloride 10 ml 04/07/19 21:00 05/04/19 08:24 Flush - Normal Saline IVF Not Given Q12HR FAISAL Sodium Chloride 10 ml 04/07/19 09:55 04/12/19 11:42 Flush - Normal Saline IVF 10 ml PRN PRN Administration Saline Flush - Exam NAD, awake alert Eye: PERRL, anicteric sclera ENT: normocephalic atraumatic Neck: supple (+trach) Heart: RRR, no murmur Respiratory: CTAB, no wheezes Gastrointestinal: soft, non-tender, non-distended Extremities: no cyanosis, no clubbing Skin: normal turgor, no lesions Neurological: CN's grossly intact Hosp A/P (1) COPD exacerbation Code(s): J44.1 - CHRONIC OBSTRUCTIVE PULMONARY DISEASE W (ACUTE) EXACERBATION Status: Acute (2) Pneumonia Code(s): J18.9 - PNEUMONIA, UNSPECIFIED ORGANISM Status: Acute Qualifiers: Laterality: left (3) Morbid obesity Code(s): E66.01 - MORBID (SEVERE) OBESITY DUE TO EXCESS CALORIES Status: Chronic - Plan - cont current plan of care - pending placement - can transfer to medical floor if ok with pulmonary team - vitals stable - DC once placement arranged and once ok with subspecialists - case and plan d/w patient at length, he understood and agreed with this plan
--- NOTE | 2019-05-04 19:07 | PRG ---
DATE OF SERVICE: 05/04/2019 SUBJECTIVE: Ramin Mak has no complaints. He is quick to answer questions. He is in no distress. He started to stand and balance himself at the bedside. We will try to walk him today. OBJECTIVE: VITAL SIGNS: He is afebrile. Heart rate is 72, respiratory rate 18, oximetry is 96%, blood pressure 136/108. LUNGS: Clear. HEART: Regular rhythm. ABDOMEN: Soft. IMPRESSION: Multiple medical problems, clinically stable. He has a #6 CFN trach in. I would leave this in place until he is ambulatory. Job ID: [id number]
[2019-05-05] MEDS: Sodium Chloride 0.9% 1,000 ML IV SCH (02:50)
[2019-05-05] MEDS: guaiFENesin 200 MG TAB PER TUBE SCH ×4 (02:51→20:55)
[2019-05-05 05:50] VITALS: BMI 40.1
[2019-05-05] MEDS: Chlorhexidine Gluconate 15 ML UDCUP SSP SCH (08:26)
[2019-05-05] MEDS: predniSONE 20 MG TAB PO SCH (08:26)
[2019-05-05] MEDS: Aspirin Chewable 81 MG TAB PO SCH (08:26)
[2019-05-05] MEDS: Apixaban 5 MG TAB PO SCH ×2 (08:26→20:55)
--- NOTE | 2019-05-05 09:40 | PRG ---
DATE OF SERVICE: 05/05/2019 SUBJECTIVE: Mr. Mak is doing well. He still has not ambulated. OBJECTIVE: VITAL SIGNS: Heart rate 75, respiratory rate 16, oximetry 93% to 98% on 5 L trach collar. LUNGS: Clear. HEART: Regular rhythm. ABDOMEN: Soft. LABORATORY DATA: His electrolytes have not been repeated. IMPRESSION AND PLAN: 1. Chronic obstructive pulmonary disease, respiratory failure. 2. Diastolic heart failure. 3. Status post cardiorespiratory arrest with plugging of his tracheostomy. 4. Deep vein thrombosis. 5. Extensive tracheobronchial secretions when he was intubated, requiring a long bronchoscopy for therapeutic reasons. 6. Encephalopathy that has resolved. 7. Critical illness, myopathy. He still needs physical therapy again. I would not remove his tracheostomy tube until he is ambulatory. 8. Renal insufficiency. Needs lab checked again tomorrow. We will continue to follow. Job ID: [id number]
--- NOTE | 2019-05-05 13:22 | PDOC.HOSPP ---
- Subjective Subjective: 59 y/o male with OLENA on CPAP, COPD, CKD 3 and others admitted with worsening SOB and AMS. Found to have acute respiratory failure with hypoxia and was intubated. Became Vent dependent hence had PEG and tracheostomy. No new problem. - Objective Vital Signs & Weight: Vital Signs (12 hours) Temp Pulse Resp BP Pulse Ox 05/05/19 12:58 99.0 F 78 20 137/78 100 05/05/19 12:03 73 16 99 05/05/19 08:46 99.0 F 74 20 124/71 99 05/05/19 08:00 99 05/05/19 07:16 98 05/05/19 07:15 75 16 93 L Weight Admit Weight 319 lb 10.7 oz Weight 263 lb 12.8 oz Most Recent Monitor Data Heart Rate from ECG 72 NIBP 136/108 NIBP BP-Mean 117 Respiration from ECG 21 SpO2 100 I&O: 05/04/19 05/05/19 05/06/19 06:59 06:59 06:59 Intake Total 3070 2760 100 Output Total 1175 1550 Balance 1895 1210 100 Result Diagrams: 05/02/19 05:35 05/03/19 05:47 ROS - Review of Systems All systems: All other ROS were reviewed and found negative. - Medication Medications: Active Medications Generic Name Dose Route Start Last Admin Trade Name Freq PRN Reason Stop Dose Admin Acetaminophen 650 mg 04/05/19 22:14 04/23/19 20:09 Tylenol Elixir PO 650 mg Q6H PRN Administration Fever > 101 or Mild Pain Albuterol/Ipratropium 3 ml 04/06/19 01:00 05/05/19 12:03 Duoneb NEB 3 ml [id number] FAISAL Administration Apixaban 5 mg 04/22/19 21:00 05/05/19 08:26 Eliquis PO 5 mg BID FAISAL Administration Aspirin 81 mg 04/12/19 08:00 05/05/19 08:26 Aspirin Chewable PO 81 mg QAM-WM FAISAL Administration Chlorhexidine Gluconate 15 ml 04/29/19 09:00 05/05/19 08:26 Chlorhexidine Gluconate SSP 15 ml QAM FAISAL Administration Diltiazem HCl 60 mg 04/30/19 08:36 05/05/19 13:03 Cardizem PER TUBE 60 mg QID FAISAL Administration Guaifenesin 400 mg 04/12/19 03:00 05/05/19 08:26 Organ-I Nr PER TUBE 400 mg 0300,0900,1500,2100 FAISAL Administration Sodium Chloride 1,000 mls @ 50 mls/hr 05/02/19 13:45 05/05/19 02:50 Normal Saline 0.9% IV 1,000 mls .Q20H FAISAL Administration Loperamide HCl 2 mg 04/23/19 12:22 04/25/19 08:55 Imodium PO 2 mg PRN PRN Administration Diarrhea/Loose Stools Prednisone 10 mg 05/01/19 09:00 05/05/19 08:26 Prednisone PO 10 mg QAM FAISAL Administration Sodium Chloride 10 ml 04/07/19 21:00 05/05/19 08:26 Flush - Normal Saline IVF 10 ml Q12HR FAISAL Administration Sodium Chloride 10 ml 04/07/19 09:55 04/12/19 11:42 Flush - Normal Saline IVF 10 ml PRN PRN Administration Saline Flush - Exam awake alert Eye: PERRL ENT: normocephalic atraumatic Neck: supple, symmetric (Tracheostomy in place) Heart: RRR Respiratory: no wheezes, no rales, no ronchi, normal chest expansion (Good air entry bilaterally) Gastrointestinal: soft, non-tender, non-distended, normal bowel sounds (PEG tube noted) Extremities: no cyanosis, no edema Neurological: CN's grossly intact, no focal deficits Psychiatric: A&O x 3 Hosp A/P (1) Acute respiratory failure with hypoxia and hypercapnia Code(s): J96.01 - ACUTE RESPIRATORY FAILURE WITH HYPOXIA; J96.02 - ACUTE RESPIRATORY FAILURE WITH HYPERCAPNIA Status: Acute (2) CKD (chronic kidney disease) stage 3, GFR 30-59 ml/min Code(s): N18.3 - CHRONIC KIDNEY DISEASE, STAGE 3 (MODERATE) Status: Acute (3) Acute encephalopathy Code(s): G93.40 - ENCEPHALOPATHY, UNSPECIFIED Status: Acute (4) Acute on chronic diastolic heart failure Code(s): I50.33 - ACUTE ON CHRONIC DIASTOLIC (CONGESTIVE) HEART FAILURE Status : Acute (5) Pulmonary HTN Code(s): I27.20 - PULMONARY HYPERTENSION, UNSPECIFIED Status: Acute (6) Abnormal LFTs Code(s): R94.5 - ABNORMAL RESULTS OF LIVER FUNCTION STUDIES Status: Acute (7) OLENA on CPAP Code(s): G47.33 - OBSTRUCTIVE SLEEP APNEA (ADULT) (PEDIATRIC); Z99.89 - DEPENDENCE ON OTHER ENABLING MACHINES AND DEVICES Status: Acute (8) TASHIA (acute kidney injury) Code(s): N17.9 - ACUTE KIDNEY FAILURE, UNSPECIFIED Status: Acute (9) Atelectasis of left lung Code(s): J98.11 - ATELECTASIS Status: Acute (10) COPD exacerbation Code(s): J44.1 - CHRONIC OBSTRUCTIVE PULMONARY DISEASE W (ACUTE) EXACERBATION Status: Acute (11) Hyperkalemia Code(s): E87.5 - HYPERKALEMIA Status: Acute (12) Hypernatremia Code(s): E87.0 - HYPEROSMOLALITY AND HYPERNATREMIA Status: Acute (13) Mucus plugging of bronchi Code(s): J98.09 - OTHER DISEASES OF BRONCHUS, NOT ELSEWHERE CLASSIFIED Status : Acute (14) Pneumonia Code(s): J18.9 - PNEUMONIA, UNSPECIFIED ORGANISM Status: Acute Qualifiers: Laterality: left (15) Sepsis Code(s): A41.9 - SEPSIS, UNSPECIFIED ORGANISM Status: Acute (16) Morbid obesity Code(s): E66.01 - MORBID (SEVERE) OBESITY DUE TO EXCESS CALORIES Status: Chronic (17) Hypercalcemia Code(s): E83.52 - HYPERCALCEMIA Status: Acute - Plan Continue bronchodialators and trach care. DC IVF. discussed with speech about oral intake. Will start oral intake if cleared by speech.
[2019-05-06] MEDS: guaiFENesin 200 MG TAB PER TUBE SCH ×2 (03:42→09:26)
[2019-05-06 06:24] LABS: Anion Gap 15 mmol/L (10-20); BUN (Urea Nitrogen) 48 mg/dL (8.4-25.7); Calc. Creatinine Clearance 90 mL/min (70-130); Calcium 11.2 mg/dL (7.8-10.44); Carbon Dioxide 27 mmol/L (22-29); Chloride 97 mmol/L (98-107); Estimated GFR-MDRD 48; Glucose 101 mg/dL (70-105); Sodium 135 mmol/L (136-145)
[2019-05-06 06:36] LABS: Band 12 % (5-11); Eosinophils 2 % (0-10); Hemoglobin 14.1 g/dL (14.0-18.0); Lymphocytes 10 % (21-51); MDiff Complete? YES; Mean Corpuscular HGB CONC 30.9 g/dL (32.0-36.0); Mean Corpuscular Hemoglobin 26.9 pg (27.0-31.0); Mean Corpuscular Volume 87.1 fL (78.0-98.0); Mean Platelet Volume 9.7 fL (7.4-10.4); Monocytes 3 % (0-10); Neutrophil 73 % (42-75); Platelet Count 117 thou/uL (130-400); RBC Distribution Width 15.6 % (11.5-14.5); Red Blood Cell (RBC) Count 5.23 mill/uL (4.70-6.10); White Blood Cell (WBC) Count 9.9 thou/uL (4.8-10.8)
[2019-05-06] MEDS: Chlorhexidine Gluconate 15 ML UDCUP SSP SCH (09:26)
[2019-05-06] MEDS: predniSONE 20 MG TAB PO SCH (09:27)
[2019-05-06] MEDS: Apixaban 5 MG TAB PO SCH (09:27)
[2019-05-06] MEDS: Aspirin Chewable 81 MG TAB PO SCH (09:27)
--- NOTE | 2019-05-06 10:20 | DIS ---
DATE OF ADMISSION: 04/05/2019 DATE OF DISCHARGE: 05/06/2019 PRIMARY CARE PHYSICIAN: Jesús Justin MD DISCHARGE DIAGNOSES: 1. Acute respiratory failure with hypoxia and hypercapnia. 2. Acute on chronic diastolic heart failure. 3. Paroxysmal atrial fibrillation. 4. Acute encephalopathy. 5. Pulmonary hypertension. 6. Obstructive sleep apnea, on CPAP. 7. Acute kidney injury. 8. Chronic kidney disease, stage 3. 9. Atelectasis of left lung. 10. Mucous plugging of bronchi. 11. Hypernatremia. 12. Hyperkalemia. 13. Chronic obstructive pulmonary disease exacerbation. 14. Abnormal liver function tests. 15. Pneumonia. 16. Severe sepsis. 17. Morbid obesity. 18. Hypercalcemia. 19. Ventilator-dependent status post tracheostomy. 20. Cardiac arrest due to mucous plugging. 21. Deep vein thrombosis. 22. Critical illness myopathy. PROCEDURE PERFORMED: 1. Intubation. 2. Mechanical ventilation. 3. Fiberoptic bronchoscopy. 4. Central line placement. 5. Tracheostomy creation. 6. Percutaneous endoscopic gastrostomy tube placement. 7. Tracheostomy exchange. HOSPITAL COURSE: The patient is a 59-year-old morbidly obese male with known history of COPD, hypertension, hyperlipidemia, obstructive sleep apnea on CPAP, who was brought in due to worsening shortness of breath and some mental status changes. The patient was found to be in respiratory distress and was intubated. Following that, blood pressure dropped, and the patient was started on pressors. He was also was treated with broad-spectrum antibiotics. The patient also was found to have elevated BNP as well as bilateral effusion and abnormal EKG concerning for congestive heart failure, hence Cardiology consult was obtained. Dobutamine was added by Cardiology. The patient later had fiberoptic bronchoscopy with lavage with massive mucus plugging and collapse of left lung. The patient with treatment improved, but however, was unable to be weaned off ventilator, hence had PEG tube and tracheostomy created. Hospital course, however, was complicated by development of cardiopulmonary arrest, which was found to be due to mucous occlusion of the tracheostomy. The patient had cardiopulmonary resuscitation with prompt return of spontaneous circulation. Tracheostomy was replaced, and the patient remained stable subsequently. Of note, the patient also had acute renal failure, which improved with improvement of hemodynamics. He also had a lot of electrolyte derangements including hyperkalemia, hypercalcemia, which were felt to be related to tube feeding and improved with adjustment of tube feeding type. Hypernatremia also resolved with correction of free water deficit. The patient also was found to have a critical illness myopathy, was treated with physical therapy as well as occupational therapy with improvement and was felt to be in need of aggressive rehabilitation, hence discharged to acute rehab. At discharge, the patient still has tracheostomy, but oxygen requirement is trending downwards. The patient also has some confusional state, which was felt to be initially due to acute metabolic encephalopathy and later on due to ICU psychosis, which improved with transfer out of the ICU. CONSULTS: 1. Cardiology. 2. Pulmonary and Critical Care. 3. General Surgery. PHYSICAL EXAMINATION: VITAL SIGNS: Temperature 98.7, pulse 74, respiratory rate 20, SpO2 of 95% on 5 L, trach collar, and blood pressure is 162/88. GENERAL: Obese male, in no obvious distress. Afebrile. Anicteric. Acyanotic. HEENT: Normocephalic, atraumatic. Oral mucosa is moist. NECK: Tracheostomy is in place. CARDIOVASCULAR: Regular rhythm and rate with normal heart sounds 1 and 2. RESPIRATORY: Fair air entry bilaterally with few transmitted sounds. GI: Abdomen is obese, soft, nontender, nondistended with normal bowel sound. PEG tube is noted. EXTREMITIES: Grossly normal looking atraumatic with no edema or erythema. Distal pulses are palpable. NEUROLOGIC: Conscious and alert and oriented x3 with appropriate mental status. Cranial nerves 2 through 12 are grossly intact. DISCHARGE DISPOSITION: Inpatient rehabilitation facility. DISCHARGE CONDITION: Improved. FOLLOWUP: 1. With PCP in 2 to 3 weeks. 2. With sander portable machine in 2 to 3 weeks. 3. [employer]le And Glass Inspector will follow the patient up at the rehab center. DISCHARGE MEDICATIONS: Please see discharge med rec. This discharge took more than 38 minutes. Job ID: [id number]
[2019-05-06 13:39] VITALS: BP 144/78; TEMP 98.3
== END 2019-05-06 13:25 | DRG 4 ==
LOC: ERS 18:21 → CCU 20:52 → IMCU/EMU 04-26 22:25 → T4-A 05-04 16:26
PROVIDERS: ADMIT Internal Medicine; ATTEND Internal Medicine
PROC: 0BH17EZ Insertion of Endotracheal Airway into Trachea, Via Natural or Artificial Opening (ICD-10-PCS; principal; 2019-04-05)
PROC: 5A1955Z Respiratory Ventilation, Greater than 96 Consecutive Hours (ICD-10-PCS; 2019-04-05)
PROC: 02HV33Z Insertion of Infusion Device into Superior Vena Cava, Percutaneous Approach (ICD-10-PCS; 2019-04-05)
PROC: 0BC78ZZ Extirpation of Matter from Left Main Bronchus, Via Natural or Artificial Opening Endoscopic (ICD-10-PCS; 2019-04-07)
PROC: 0B113F4 Bypass Trachea to Cutaneous with Tracheostomy Device, Percutaneous Approach (ICD-10-PCS; 2019-04-16)
PROC: 0DH63UZ Insertion of Feeding Device into Stomach, Percutaneous Approach (ICD-10-PCS; 2019-04-16)
PROC: 0BC28ZZ Extirpation of Matter from Carina, Via Natural or Artificial Opening Endoscopic (ICD-10-PCS; 2019-04-18)
PROC: 0B21XFZ Change Tracheostomy Device in Trachea, External Approach (ICD-10-PCS; 2019-04-25)
DX: A41.9 Sepsis, unspecified organism (principal); J96.01 Acute respiratory failure with hypoxia; J96.02 Acute respiratory failure with hypercapnia; G92 Toxic encephalopathy; J18.9 Pneumonia, unspecified organism; I46.8 Cardiac arrest due to other underlying condition; I21.A1 Myocardial infarction type 2; I50.33 Acute on chronic diastolic (congestive) heart failure; N17.9 Acute kidney failure, unspecified; J98.11 Atelectasis; E87.0 Hyperosmolality and hypernatremia; J44.1 Chronic obstructive pulmonary disease with (acute) exacerbation; J44.0 Chronic obstructive pulmonary disease with (acute) lower respiratory infection; Z99.11 Dependence on respirator [ventilator] status; T17.590A Other foreign object in bronchus causing asphyxiation, initial encounter; I13.0 Hypertensive heart and chronic kidney disease with heart failure and stage 1 through stage 4 chronic kidney disease, or unspecified chronic kidney disease; Z68.41 Body mass index [BMI] 40.0-44.9, adult; I82.412 Acute embolism and thrombosis of left femoral vein; L03.114 Cellulitis of left upper limb; T82.868A Thrombosis due to vascular prosthetic devices, implants and grafts, initial encounter; J95.03 Malfunction of tracheostomy stoma; I48.0 Paroxysmal atrial fibrillation; I27.20 Pulmonary hypertension, unspecified; G47.33 Obstructive sleep apnea (adult) (pediatric); N18.3 Chronic kidney disease, stage 3 (moderate); E87.5 Hyperkalemia; R65.20 Severe sepsis without septic shock; E66.01 Morbid (severe) obesity due to excess calories; E78.5 Hyperlipidemia, unspecified; F17.210 Nicotine dependence, cigarettes, uncomplicated; F41.9 Anxiety disorder, unspecified; K21.9 Gastro-esophageal reflux disease without esophagitis; I87.2 Venous insufficiency (chronic) (peripheral); Y83.9 Surgical procedure, unspecified as the cause of abnormal reaction of the patient, or of later complication, without mention of misadventure at the time of the procedure; E83.52 Hypercalcemia; F28 Other psychotic disorder not due to a substance or known physiological condition; Z79.82 Long term (current) use of aspirin; Z79.899 Other long term (current) drug therapy
CPT/HCPCS: 31500; 36415; 36416; 36556; 51702; 70450; 71045; 71250; 74177; 80048; 80053; 80061; 80069; 80076; 80202; 80306; 80307; 81003; 81015; 82140; 82533; 82550; 82553; 82805; 83605; 83690; 83735; 83880; 83970; 84100; 84443; 84484; 85007; 85025; 85027; 85610; 85730; 87040; 87070; 87086; 87205; 87324; 87449; 93005; 93306; 93970; 94003; 94640; 94660; 96360; 96365; 96366; 96368; 96376; J0171; J0692; J1120; J1250; J1630; J1650; J1940; J2060; J2185; J2250; J2270; J2543; J2704; J2920; J3010; J3370; J3490; J7050; J7070; J7512; J7620; S0028

== ENCOUNTER 2019-05-27 02:47 | Emergency (ER) | payer BC ==
[2019-05-27 03:38] LABS: #Eosinphils 0.2 thou/uL (0.0-0.7); #Lymphocytes 1.9 thou/uL (1.20-3.40); #Monocytes 0.5 thou/uL (0.11-0.59); #Neutrophils 7.6 thou/uL (1.40-6.50); %Basophils 0.2 % (0.0-1.0); %Eosinophils 1.6 % (0.0-10.0); %Lymphocytes 18.3 % (21.0-51.0); %Neutrophils 74.8 % (42.0-75.0); Hemoglobin 11.5 g/dL (14.0-18.0); Mean Corpuscular HGB CONC 32.1 g/dL (32.0-36.0); Mean Corpuscular Volume 87.2 fL (78.0-98.0); Mean Platelet Volume 7.1 fL (7.4-10.4); Platelet Count 197 thou/uL (130-400); RBC Distribution Width 16.4 % (11.5-14.5); Red Blood Cell (RBC) Count 4.12 mill/uL (4.70-6.10); White Blood Cell (WBC) Count 10.1 thou/uL (4.8-10.8)
[2019-05-27 04:06] LABS: ALT (SGPT) 22 U/L (8-55); AST (SGOT) 15 U/L (5-34); Albumin 3.5 g/dL (3.5-5.0); Alkaline Phosphatase 79 U/L (40-150); BUN (Urea Nitrogen) 20 mg/dL (8.4-25.7); Bilirubin, Total 0.3 mg/dL (0.2-1.2); Calc. Creatinine Clearance 0 mL/min (70-130); Calcium 9.6 mg/dL (7.8-10.44); Carbon Dioxide 28 mmol/L (22-29); Chloride 100 mmol/L (98-107); Estimated GFR-MDRD 56; Globulin 2.9 g/dL (2.4-3.5); Glucose 98 mg/dL (70-105); Potassium 4.5 mmol/L (3.5-5.1); Protein, Total 6.4 g/dL (6.0-8.3); Sodium 141 mmol/L (136-145)
[2019-05-27 04:07] LABS: Anion Gap 18 mmol/L (10-20)
--- NOTE | 2019-05-27 08:46 | RAD ---
CHEST ONE VIEW: HISTORY: Shortness of breath. COMPARISON: 04/22/2019 FINDINGS: Atherosclerosis of the aortic knob. Enlarged cardiac silhouette. The pulmonary vessels and hilum ar e normal. The costophrenic angles are clear. No masses or consolidation. No pneumothorax or osseou s abnormalities. The previously noted bibasilar pleural effusions have resolved. Tracheostomy is re demonstrated. IMPRESSION: No acute cardiopulmonary process. POS: OFF
== END 2019-05-27 05:48 | disposition home or self-care (01) ==
LOC: ERS 02:47
DX: J44.1 Chronic obstructive pulmonary disease with (acute) exacerbation (principal); I10 Essential (primary) hypertension; K21.9 Gastro-esophageal reflux disease without esophagitis; F41.9 Anxiety disorder, unspecified; Z87.891 Personal history of nicotine dependence; Z79.82 Long term (current) use of aspirin; Z79.899 Other long term (current) drug therapy
CPT/HCPCS: 36415; 71045; 80053; 83880; 84484; 85025; 87040; 93005; 94640; 94760; J7620